=== PATIENT | female | born 1945 | race Caucasian/White ===

== ENCOUNTER 2022-03-11 07:16 | Emergency (ER) | payer MEDICARE, SELFPAY ==
[2022-03-11 07:20] VITALS: BP 150/99; PULSE 93; RESP 18; TEMP 36.5; O2SAT 95; BMI 27.4
--- NOTE | 2022-03-11 07:36 | ED_ITS ---
HPI - Fall General: Chief Complaint: Fall Stated Complaint: Hit her head Time Seen by Provider: 03/11/22 07:30 History of Present Illness: 76-year-old female presents following a fall. Patient reports that she has been having some trouble with her legs and being seen on outpatient. That she felt was having difficulty getting up that she had fell in the bathroom and crawled under hallway and was getting up when she slipped and fell and hit her head on a brick fireplace. She has a small laceration on her right posterior scalp. She did not lose consciousness. She has no other injuries from the fall. Associated symptoms-after fall: Denies abdominal pain, chest pain or headache(s) Review of Systems Const: Denies: fever(s) or chills Eyes: Denies: change in vision or blurry vision ENMT: Denies: throat pain Card: Denies: chest pain or palpitations Resp: Denies: dyspnea or productive cough GI: Denies: abdominal pain, nausea or vomiting : Denies: difficulty voiding or urinary frequency Musc: Reports: joint pain (Chronic hip pain) Skin/Breast: Reports: other (Please see HPI) Neuro: Reports: frequent falls; Denies: headache(s) or numbness in extremities Psych: Denies: anxiety or depression Physical Exam Const: COMMON NORMALS: no acute distress, patient oriented x3, no limitations and alert HENMT: COMMON NORMALS: hearing grossly normal bilaterally HEAD & SCALP: laceration Eye: COMMON NORMALS: EOMs intact bilaterally Neck/C-Spine: COMMON NORMALS: full ROM and supple Resp: COMMON NORMALS: normal respiratory effort, No retractions and No use of accessory muscles Cardio: COMMON NORMALS: regular rate and regular rhythm RATE: regular rate RHYTHM: regular rhythm Extremity: COMMON NORMALS: normal to inspection and capillary refill normal Neuro: COMMON NORMALS: patient oriented x3, CN's II-XII intact bilaterally, no focal motor deficits and no sensory deficits noted SENSORIUM/ORIENTATION: Yes alert Psych: COMMON NORMALS: mental status grossly normal, cooperative and normal affect Skin: NARRATIVE SKIN EXAM: Small half inch abrasion with puncture wound, nonsuturable, no active bleeding Course Vital Signs: Vital signs: Vital Signs Temperature 97.7 F 03/11/22 07:20 Pulse Rate 93 03/11/22 07:20 Respiratory Rate 18 03/11/22 07:20 Blood Pressure 150/99 03/11/22 07:20 Pulse Oximetry 95 03/11/22 07:20 Oxygen Delivery Me thod 03/11/22 07:20 MDM - Fall Medical Decision Making Patient with small nonsuturable puncture wound/abrasion posterior scalp. Negative head CT. Patient stable and discharged home. She should continue to follow-up outpatient for her chronic hip pain and frequent falls Lab Data Radiology Impressions Head CT 03/11/22 07:41 IMPRESSION: 1. No noncontrast CT evidence of acute posttraumatic intracranial abnormality. 2. Minimal right parietal scalp soft tissue swelling. Discharge Plan Discharge Patient Disposition: Home Clinical Impression: Abrasion of scalp, initial encounter, Fall Condition: Stable Discharge Orders: Discharge ED (Routine); Ordered 03/11/22 Ordered By: German Joshi Referrals: Fco Meyer MD [Primary Care Provider] - Discharge Diet: Usual diet Discharge Activity: Increase activity as tolerated Patient Instructions: Opioid Safety, Pain Management, Abrasion (ED), Puncture Wound (DC), Head Injury (ED) Activity Restrictions/Additional Instructions: Follow-up with your primary care provider as needed for continued Keep wound clean with warm soapy water Coding Level of Care Code ED Chainstitch Hemmer for Chg Fwd Exam Comprehensive
--- NOTE | 2022-03-11 07:41 | CTR_ITS ---
PROCEDURE INFORMATION: Exam: CT Head Without Contrast Exam date and time: 03/11/2022 8:07 AM Age: 76 years old Clinical indication: Injury or trauma; Fall; Blunt trauma (contusions or hematomas) and laceration; Without residual foreign body; Scalp; Injury date: Today; Additional info: Fall, head trauma TECHNIQUE: Imaging protocol: Computed tomography of the head without contrast. Radiation optimization: All CT scans at this facility use at least one of these dose optimization techniques: automated exposure control; mA and/or kV adjustment per patient size (includes targeted exams where dose is matched to clinical indication); or iterative reconstruction. COMPARISON: No relevant prior studies available. RADIATION DOSE METRICS: Total DLP (mGy-cm): 958.685 FINDINGS: Brain: There is brain parenchymal atrophy, related to the patient's age. Mild nonspecific white matter changes are seen. There are no intracranial masses, mass effect or midline shift. There is no cerebral edema. There is no subarachnoid hemorrhage. There are no intra-or extra-axial fluid collections, intraventricular or intraparenchymal hemorrhage. No definite areas of low attenuation or edge-white matter junction obscuration seen on the noncontrast CT to suggest a subacute stroke - although the underlying white matter changes limit assessment. Cerebral ventricles: The lateral, third and fourth ventricles appear unremarkable. Cavum septum pellucidum is seen. The suprasellar and basilar cisterns appear unremarkable. Paranasal sinuses: The visualized sinuses are unremarkable. Mastoid air cells: The visualized mastoids are unremarkable. Orbital cavities: The visualized orbits are unremarkable. Bones/joints: No definite acute osseous or skull abnormalities seen. Soft tissues: Minimal right parietal scalp soft tissue swelling. Notes: Some motion artifact is seen in the upper head region. If there is further clinical concern for intracranial pathology, MRI of the brain may be performed for further assessment. CT/CT head wo con* [id number] IMPRESSION: 1. No noncontrast CT evidence of acute posttraumatic intracranial abnormality. 2. Minimal right parietal scalp soft tissue swelling.
[2022-03-11 09:12] VITALS: BP 150/99; PULSE 93; RESP 18; TEMP 36.5
== END 2022-03-11 09:13 | disposition home or self-care (01) ==
PROVIDERS: Emergency Provider Student in an Organized Health Care Education/Training Program; PCP Family Medicine
DX: S00.01XA Abrasion of scalp, initial encounter (principal); W01.198A Fall on same level from slipping, tripping and stumbling with subsequent striking against other object, initial encounter
CPT/HCPCS: 70450; 99284

== ENCOUNTER 2022-03-20 12:15 | Outpatient (CLI) | payer MEDICARE, SELFPAY ==
--- NOTE | 2022-03-20 12:23 | XR_ITS ---
WS: [id number] Lumbar spine, 3 views, 03/20/2022 Clinical Data: back pain and ataxic gait Comparison: None. Findings: No compression fractures or subluxation is seen. There is degenerative disc narrowing at T12-L1, L1-L 2 and L5-S1. The transverse processes and SI joints are normal. There is anterior osteoarthritic spurring from the lower thoracic vertebral bodies through all the [place] mbar vertebral bodies. There is calcification of the wall of the abdominal aorta but no aneurysm. XR/XR lumbar spine 2-3V* [id number] Impression: Multilevel degenerative disc narrowing and osteoarthritic spurring.
--- NOTE | 2022-03-20 12:23 | XR_ITS ---
WS: [id number] Cervical spine, erect lateral, supine AP and odontoid views, 03/20/2022 Clinical Data: pain in neck Comparison: None. Findings: No compression fractures are seen. There is degenerative disc narrowing of C2-C3, C4-C5, C5 -C6 and C6-C7. There is anterior osteoarthritic spurring at C2, C4-C6.. There is no prevertebral soft tissue swelling. The odontoid is unremarkable. The soft tissues of the neck and the lung apices are normal. XR/XR cervical spine 3V* [id number] Impression: 1. Multilevel degenerative disc narrowing. 2. Multilevel anterior osteoarthritic spurring.
== END 2022-03-20 12:16 | disposition home or self-care (01) ==
LOC: RAD 12:18
PROVIDERS: PCP Family Medicine; Visit Provider Family Medicine
DX: M47.817 Spondylosis without myelopathy or radiculopathy, lumbosacral region (principal); M50.90 Cervical disc disorder, unspecified, unspecified cervical region; M51.36 Other intervertebral disc degeneration, lumbar region
CPT/HCPCS: 72040; 72100; 80053; 85025; 85651

== ENCOUNTER 2022-03-27 06:00 | Outpatient (RCR) | payer MEDICARE, SELFPAY | END 2022-04-10 16:09 | disposition home or self-care (01) | LOC: SPT 06:00 | PROVIDERS: PCP Family Medicine; Visit Provider Family Medicine | DX: M47.817 Spondylosis without myelopathy or radiculopathy, lumbosacral region (principal) | CPT/HCPCS: 97162 ==

== ENCOUNTER 2022-04-04 12:51 | Inpatient (IN) | payer MEDICARE, SELFPAY ==
[2022-04-04] VITALS (8 sets, daily range): BP systolic 123–151; BP diastolic 66–94; PULSE 75–106; RESP 16–20; TEMP 36.3–36.6; O2SAT 92–97; BMI 26.6
--- NOTE | 2022-04-04 13:07 | XRR_ITS ---
PROCEDURE INFORMATION: Exam: XR Chest Exam date and time: 04/04/2022 3:02 PM Age: 76 years old Clinical indication: Other: Weakness; Additional info: Weakness, increased rr TECHNIQUE: Imaging protocol: Radiologic exam of the chest. Views: 1 view. COMPARISON: CR XR cervical spine 3V* [id number] 03/20/2022 12:33 PM FINDINGS: Lungs: Unremarkable. No consolidation. Pleural spaces: Unremarkable. No pleural effusion. No pneumothorax. Heart/Mediastinum: Unremarkable. No cardiomegaly. Bones/joints: Unremarkable. XR/XR chest 1V portable [id number] IMPRESSION: No acute findings.
--- NOTE | 2022-04-04 13:10 | ED_ITS ---
HPI - Weakness General: Chief complaint: Weakness Stated complaint: Weakness Time Seen by Provider: 04/04/22 12:55 Source: patient and EMS Mode of arrival: EMS Limitations: no limitations History of Present Illness: 76-year-old female presents by EMS after family came to check on her and she could not get out of her chair to answer the door. EMS reports that patient seemed to be having some drifting or delirium during conversation. She reports that she was too weak to get out of her chair and therefore had to urinate on herself. She could not get up to answer the door. EMS reports family on scene was worried she might be starting to have some memory decline. Patient does not complain of any pain. She does not have a good explanation for her weakness. Evidently she normally ambulates on her own. Associated symptoms: Reports confusion; Denies chest pain, chills, dysuria, fever(s), headache(s), nausea, syncope or vomiting Review of Systems General: Reports: 10 or more systems reviewed and unremarkable except in HPI and below Const: Denies: fever(s), chills or body aches ENMT: Denies: throat pain Card: Denies: chest pain, edema or syncope Resp: Denies: dyspnea or productive cough GI: Denies: abdominal pain, nausea, vomiting or diarrhea : Denies: flank pain or dysuria Musc: Denies: neck pain, back pain, extremity pain or extremity swelling Skin/Breast: Denies: rash or erythema Neuro: Reports: weakness in extremities, difficulty walking and confusion; Denies: headache(s), numbness in extremities, lack of coordination, dizziness or vertigo [facility] ED PFSH: Social History Smoking and tobacco status: never smoked Physical Exam Narrative: EXAM NARRATIVE: Smell of urine. She is wearing a depends which is wet. Her hair is unkempt. She mostly is able to answer my questions normally but occasionally gets lost in what she is saying or has loose associations. She has generalized weakness and is not able to lift her legs off of the bed while extended. She has to pull up her legs by bending her knees and using her hands to assist her legs. There are no focal abnormalities in the sensory or motor examinations. She is deconditioned. Her respiratory rate is increased but she is not in respiratory distress and her lung sounds are clear. Const: COMMON NORMALS: alert and well nourished GENERAL APPEARANCE: cooperative and well developed ORIENTATION/CONSCIOUSNESS: Yes awake HENMT: COMMON NORMALS: normocephalic, atraumatic, external ears normal and Normal external nose present HEAD & SCALP: normal to inspection, normocephalic and atraumatic FACE & SINUS: face symmetric NOSE: Normal external nose present EXTERNAL EAR: Yes external ears normal Eye: COMMON NORMALS: EOMs intact bilaterally and conjunctivae normal GENERAL EYE: appearance normal, both eyes and all related structures CONJUNCTIVA: Yes conjunctivae normal Neck/C-Spine: COMMON NORMALS: no JVD GENERAL: Yes normal visual inspection and Yes trachea midline Resp: COMMON NORMALS: normal respiratory effort, No use of accessory muscles and clear to auscultation bilaterally EFFORT & INSPECTION: Yes able to speak in complete sentences and Yes symmetric chest movement AUSCULTATION: clear to auscultation bilaterally Cardio: COMMON NORMALS: no JVD and regular rhythm RHYTHM: regular rhythm PERIPHERAL PULSES: radial pulses present GI: COMMON NORMALS: Soft to palpation INSPECTION: Yes normal to inspection PALPATION: Yes Soft to palpation, No Tenderness to palpation present (GI) and No Guarding due to palpation present (GI) Extremity: COMMON NORMALS: normal to inspection GENERAL: Yes normal exam except as noted Neuro: COMMON NORMALS: moves all extremities, no focal motor deficits and no sensory deficits noted SENSORIUM/ORIENTATION: Yes alert Psych: COMMON NORMALS: Normal thought process present, cooperative, normal affect and speech normal SPEECH: Yes normal speech THOUGHT PROCESS: Normal thought process present Skin: COMMON NORMALS: no jaundice Course Vital Signs: Vital signs: Vital Signs Temperature 97.8 F 04/04/22 12:53 Pulse Rate 106 H 04/04/22 12:53 Respiratory Rate 18 04/04/22 12:53 Blood Pressure 138/88 04/04/22 14:23 Pulse Oximetry 94 04/04/22 12:53 Oxygen Delivery Me thod 04/04/22 12:53 Oxygen Flow Rate 3 04/04/22 12:53 MDM - Weakness Medical Decision Making Differential diagnosis would include deconditioning, urinary tract infection, other infectious etiology, dehydration, metabolic abnormality such as glycemic, sodium, renal, hepatic, etc. Patient does not endorse using any medications or drugs or alcohol. She denies any trauma and there is no sign of trauma externally. I do not think this is consistent with stroke. Patient is found to have a urinary tract infection. White blood cell count is mildly elevated. Some mild electrolyte abnormalities. Patient is noted to be dehydrated. She was given 2 L of fluid. Rocephin was started after blood cultu res. Chest x-ray does not show any acute findings. The patient's EKG showed a sinus tachycardia at a rate of 103 bpm with a borderline first-degree AV block, probable left axis deviation and mild LVH, poor R wave progression through the precordium, and lots of baseline wandering and interference that limits some interpretation. Dr Luciano to admit. Lab Data 04/04/22 13:36 04/04/22 13:36 Radiology Impressions Chest X-Ray 04/04/22 13:07 IMPRESSION: No acute findings. Laboratory Results WBC 10.5 10^3/uL (4.0-10.0) H 04/04/22 13:36 RBC 4.09 10^6/uL (4.1-5.3) L 04/04/22 13:36 Hgb 12.7 g/dL (11.5-15.3) 04/04/22 13:36 Hct 37.0 % (37.0-47.0) 04/04/22 13:36 MCV 90.5 fl (81-99) 04/04/22 13:36 MCH 31.1 pg (28.0-34.0) 04/04/22 13:36 MCHC 34.3 g/dL (30.0-36.0) 04/04/22 13:36 RDW 14.7 % (12.1-15.1) 04/04/22 13:36 Plt Count 129 10^3/cmm (130-400) L 04/04/22 13:36 MPV 9.8 fL (7.4-10.4) 04/04/22 13:36 Neut % (Auto) 86.9 % 04/04/22 13:36 Lymph % (Auto) 5.1 % 04/04/22 13:36 [place] % (Auto) 6.7 % 04/04/22 13:36 Eos % (Auto) 0.1 % 04/04/22 13:36 Baso % (Auto) 0.3 % 04/04/22 13:36 Neut # (Auto) 9.16 10^3/uL (1.8-7.7) H 04/04/22 13:36 Lymph # (Auto) 0.5 10^3/uL (0.8-4.8) L 04/04/22 13:36 [place] # (Auto) 0.7 10^3/uL (0.2-0.9) 04/04/22 13:36 Eos # (Auto) 0.0 10^3/uL (0.0-0.8) 04/04/22 13:36 Baso # (Auto) 0.0 10^3/uL (0.0-0.1) 04/04/22 13:36 Nucleated RBC % (auto) 0 % 04/04/22 13:36 Nucleated RBCs # 0.0 /100WBC 04/04/22 13:36 Sodium 132 mmol/L (136-145) L 04/04/22 13:36 Potassium 4.0 mmol/L (3.5-5.1) 04/04/22 13:36 Chloride 94 mmol/L (98-107) L 04/04/22 13:36 Carbon Dioxide 25 mmol/L (22-29) 04/04/22 13:36 Anion Gap 17.0 (5-19) 04/04/22 13:36 BUN 42 mg/dL (8-23) H 04/04/22 13:36 Creatinine 0.6 mg/dL (0.5-0.9) 04/04/22 13:36 GFR Calculation Not Reportable 04/04/22 13:36 Glucose 109 mg/dL (65-115) 04/04/22 13:36 Calculated Osmolality 285 mOsm/kg (285-295) 04/04/22 13:36 Calcium 11.1 mg/dL (8.5-10.5) H 04/04/22 13:36 Magnesium 1.7 mg/dL (1.7-2.3) 04/04/22 13:36 Total Bilirubin 1.0 mg/dL (0.15-1.2) 04/04/22 13:36 AST 44 U/L (0-32) H 04/04/22 13:36 ALT 12 U/L (0-33) 04/04/22 13:36 Alkaline Phosphatase 149 U/L (35-105) H 04/04/22 13:36 Total Protein 5.7 g/dL (6.6-8.7) L 04/04/22 13:36 Albumin 3.2 g/dL (3.5-5.2) L 04/04/22 13:36 Globulin 2.5 g/dL (1.3-4.6) 04/04/22 13:36 TSH 7.05 uIU/mL (0.27-4.20) H 04/04/22 13:36 Urine Color Yellow (Yellow) 04/04/22 13:55 Urine Appearance Cloudy (CLEAR) A 04/04/22 13:55 Urine pH 5 (5-7) 04/04/22 13:55 Ur Specific [place] 1.025 (1.005-1.030) 04/04/22 13:55 Urine Protein 1+ (Negative) H 04/04/22 13:55 Urine Glucose (UA) Norm (Normal) 04/04/22 13:55 Urine Ketones 1+ (Negative) H 04/04/22 13:55 Urine Blood Neg (Negative) 04/04/22 13:55 Urine Nitrate Negative (Negative) 04/04/22 13:55 Urine Bilirubin 1+ (Negative) H 04/04/22 13:55 Urine Urobilinogen 4 mg/dL (Negative) H 04/04/22 13:55 Ur Leukocyte Esterase 2+ (Negative) H 04/04/22 13:55 Urine RBC 0-4 /hpf (0-2) H 04/04/22 13:55 Urine WBC >100 /hpf (0-5) H 04/04/22 13:55 Ur Squamous Epith Cells 0-4 /hpf (0-5) H 04/04/22 13:55 Amorphous Sediment Not Reportable 04/04/22 13:55 Urine Bacteria 4+ /hpf (NONE) H 04/04/22 13:55 Urine Mucus 2+ /hpf 04/04/22 13:55 Discharge Plan Discharge Condition: Stable Prescriptions: No Action Osteo Bi-Flex 250-200 mg Tablet 1 tab PO DAILY Rx Instructions: give after food/meal Referrals: Fco Meyer MD [Primary Care Provider] - Coding Level of Care Code ED It Infrastructure Project Manager for Chg Fwd Exam Comprehensive
--- NOTE | 2022-04-04 13:18 | ECG_ITS ---
[facility] Test Date: 2022-04-04 Pat Name: Renetta Lazaro Department: Room: Gender: Female Portable Trackman: : 1945 Requested By: Ryan Bianchi Order Number: [id number] Zaida MD: Haris Vivas M.D. Measurements Intervals [place] Rate: 103 P: 117 FL: 228 QRS: -18 QRSD: 101 T: 95 QT: 262 QTc: 344 Interpretive Statements SINUS TACHYCARDIA WITH FIRST DEGREE AV BLOCK WITH OCCASIONAL SUPRAVENTRICULAR PREMATURE COMPLEXES LOW QRS VOLTAGE IN PRECORDIAL LEADS [QRS DEFLECTION < 1.0 mV IN CHEST LEADS] POSSIBLE ANTERIOR MYOCARDIAL INFARCTION , PROBABLY OLD [30 ms Q WAVE IN V3/V4, OR R < 0.2 mV IN V4] MODERATE T-WAVE ABNORMALITY, CONSIDER LATERAL ISCHEMIA [-0.1+ mV T-WAVE IN I/aVL/V5/V6] No previous ECG available for comparison Electronically Signed On 04-04-2022 20:36:39 LAND LEVELER by Haris Vivas M.D. [id number]
[2022-04-04] MEDS: sodium chloride 0.9% 1,000 ML 999 ML IV (13:38)
[2022-04-04 13:42] LABS: Basophils % 0.3 %; Eosinophils % 0.1 %; Hemoglobin 12.7 g/dL (11.5-15.3); Lymphocytes # 0.5 10^3/uL (0.8-4.8); Lymphocytes % 5.1 %; Mean Corpuscular HGB Conc 34.3 g/dL (30.0-36.0); Mean Corpuscular Hemoglobin 31.1 pg (28.0-34.0); Mean Corpuscular Volume 90.5 fl (81-99); Mean Platelet Volume 9.8 fL (7.4-10.4); Monocytes # 0.7 10^3/uL (0.2-0.9); Monocytes % 6.7 %; Neutrophils # 9.16 10^3/uL (1.8-7.7); Neutrophils % 86.9 %; Nucleated Red Blood Cells % 0 %; Platelet Count 129 10^3/cmm (130-400); Red Blood Count 4.09 10^6/uL (4.1-5.3); Red Cell Distribution Width 14.7 % (12.1-15.1); White Blood Count 10.5 10^3/uL (4.0-10.0)
[2022-04-04 14:09] LABS: Alanine Aminotransferase 12 U/L (0-33); Albumin Level 3.2 g/dL (3.5-5.2); Alkaline Phosphatase 149 U/L (35-105); Aspartate Amino Transferase 44 U/L (0-32); Blood Urea Nitrogen 42 mg/dL (8-23); Calcium 11.1 mg/dL (8.5-10.5); Carbon Dioxide 25 mmol/L (22-29); Chloride 94 mmol/L (98-107); Globulin 2.5 g/dL (1.3-4.6); Glucose 109 mg/dL (65-115); Magnesium 1.7 mg/dL (1.7-2.3); Osmolality Calculated 285 mOsm/kg (285-295); Sodium 132 mmol/L (136-145); Thyroid Stimulating Hormone 7.05 uIU/mL (0.27-4.20); Total Protein 5.7 g/dL (6.6-8.7)
[2022-04-04 14:23] LABS: Add Urine Microscopic? YES; Bilirubin Urine 1+ (Negative); Blood Urine Neg (Negative); Glucose Urine UA Norm (Normal); Ketones Urine 1+ (Negative); Leukocyte Esterase Urine 2+ (Negative); Nitrate Urine Negative (Negative); Protein Urine 1+ (Negative); Specific Gravity, Urine 1.025 (1.005-1.030); Urine Appearance Cloudy (CLEAR); Urine Color Yellow (Yellow); Urobilinogen Urine 4 mg/dL (Negative); pH Urine 5 (5-7)
[2022-04-04 14:24] LABS: Add Urine Culture? Yes; Bacteria Urine 4+ /hpf; Mucus Urine 2+ /hpf; RBC Urine 0-4 /hpf (0-2); Squamous Epithelial Cell Urine 0-4 /hpf (0-5); WBC Urine >100 /hpf (0-5)
[2022-04-04] MEDS: cefTRIAXone 2,000 MG in sodium chloride 0.9% (plus) 50 ML 100 MG IV (14:56)
--- NOTE | 2022-04-04 15:37 | CTR_ITS ---
PROCEDURE INFORMATION: Exam: CT Abdomen And Pelvis Without Contrast Exam date and time: 04/04/2022 4:22 PM Age: 76 years old Clinical indication: Abdominal pain; Generalized; Additional info: Pyelo? Renal stone TECHNIQUE: Imaging protocol: Computed tomography of the abdomen and pelvis without contrast. Radiation optimization: All CT scans at this facility use at least one of these dose optimization techniques: automated exposure control; mA and/or kV adjustment per patient size (includes targeted exams where dose is matched to clinical indication); or iterative reconstruction. COMPARISON: CR XR chest 1V portable [id number] 04/04/2022 3:02 PM RADIATION DOSE METRICS: Total DLP (mGy-cm): 693.61 FINDINGS: Right lower lobe pleural effusion and pleural thickening Liver: There is hepatomegaly the liver span is 19 cm. There are multiple areas of decreased density diffusely throughout the right hepatic lobe corresponding to hematogenous metastatic disease. . Gallbladder and bile ducts: Normal. No calcified stones. No ductal dilation. Pancreas: Atrophic appearing No ductal dilation. Spleen: Normal. No splenomegaly. Adrenal glands: Normal. No mass. Kidneys and ureters: Normal. No hydronephrosis. Negative for urinary tract stones Stomach and bowel: Unremarkable. No obstruction. No mucosal thickening. Appendix: No evidence of appendicitis. Intraperitoneal space: There is moderate diffuse abdominal and pelvic peritoneal ascites fluid is seen in the perihepatic, perisplenic, bilateral pericolic gutters, and in the pelvis. Vasculature: The aorta is ectatic calcified without evidence of aneurysm. Lymph nodes: Unremarkable. No enlarged lymph nodes. Urinary bladder: Unremarkable as visualized. Reproductive: A normal uterus is not visible corresponding to hysterectomy. Bones/joints: A circumscribed mass is present in the posterior aspect of the T9 vertebral body on the left side. This finding measures 25.9 mm x 25.8 mm. There is a small mass seen in the left side of the T10 vertebral body measuring 9 mm The left sacral bone and the S1 vertebral body on the left side displays a large decreased density lobulated mass measuring 50 mm x 53 mm. 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 This lesion is amenable to percutaneous biopsy The lumbar spine shows osteoarthritis. Soft tissues: Unremarkable. CT/CT abdomen pelvis wo con [id number] IMPRESSION: 1. Hepatomegaly and hepatic metastatic disease. 2. 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 3. Tumor mass is seen in the T9 and T10 vertebral bodies 4. Diffuse abdominal and pelvic peritoneal ascites. 5. Negative for urinary tract stones or urinary outflow tract obstruction. 6.Status post hysterectomy. 7. Right lower lobe small pleural effusion
--- NOTE | 2022-04-04 15:54 | CTR_ITS ---
PROCEDURE INFORMATION: Exam: CT Head Without Contrast Exam date and time: 04/04/2022 4:20 PM Age: 76 years old Clinical indication: Injury or trauma; Fall; Blunt trauma (contusions or hematomas); Additional info: Fall, unsteady TECHNIQUE: Imaging protocol: Computed tomography of the head without contrast. Radiation optimization: All CT scans at this facility use at least one of these dose optimization techniques: automated exposure control; mA and/or kV adjustment per patient size (includes targeted exams where dose is matched to clinical indication); or iterative reconstruction. COMPARISON: CT head wo con* [id number] 03/11/2022 8:07 AM RADIATION DOSE METRICS: Total DLP (mGy-cm): 929.2 FINDINGS: Brain: No hemorrhage. No edema. Moderate diffuse cerebral atrophy. No significant white matter disease. No mass effect. Cerebral ventricles: Normal variant intact cavum septum pellucidum and et vergae. No ventriculomegaly. Paranasal sinuses: Visualized sinuses are unremarkable. No fluid levels. Mastoid air cells: Visualized mastoid air cells are well aerated. Bones/joints: Unremarkable. No acute fracture. Soft tissues: Unremarkable. CT/CT head wo con* [id number] IMPRESSION: No acute intracranial abnormality.
--- NOTE | 2022-04-04 15:56 | PM.HP ---
Providers/Chief Complaint Primary Care Provider: Fco Meyer MD Chief Complaint: Weakness History of Present Illness Renetta Lazaro is a 76 year old female who presents to [facility] due to generalized weakness, fatigue, malaise, confusion, dysuria. Patient presents from EMS with family as the did not hear from her the last few days, when he checked up on her, they could not get out of the chair, tapped in the door, she was increasingly confused. She is normally independent, self ambulatory. Currently she is alert to person, to place, to time, can follow commands. She denies any nausea, no vomiting, no chest pain, shortness of breath. No abdominal pain. No flank pain. She does report a history of kidney stones. She does report that she fell on the , she came here they did scans and they told him that she was all right but she remains unsteady on her feet, she states saw Dr. Meyer for this Review of Systems Const: Reports: fatigue and malaise; Denies: fever(s) or chills Card: Denies: chest pain Resp: Denies: dyspnea GI: Denies: abdominal pain : Denies: difficulty voiding Medications/Allergies Home Medications Medication Instructions Recorded Confirmed Last Taken Type glucosamine-chondroitin 250 mg-200 1 tab PO DAILY 04/04/22 04/04/22 04/03/22 History mg tablet (Osteo Bi-Flex) Allergies Allergy/AdvReac Type Severity Reaction Status Date / Time Penicillins Allergy Intermediate ADR-Dizzine Verified 03/20/22 08:47 ss PFSH Acute PFSH: Medical History (Updated 04/04/22 @ 16:01 by Matthew Luciano MD) Cervical radiculopathy Family History (Updated 04/04/22 @ 15:59 by Matthew Luciano MD) Brother Leukemia CAD (coronary artery disease) Social History Smoking and tobacco status: never smoked Vitals/I&O/Wt Last Vital Signs Temp 97.8 F 04/04/22 12:53 Pulse 106 H 04/04/22 12:53 Resp 18 04/04/22 12:53 BP 138/88 04/04/22 14:23 Pulse Ox 94 04/04/22 12:53 O2 Del Method 04/04/22 12:53 O2 Flow Rate 3 04/04/22 12:53 Weight last 48 hrs Weight 74.843 kg Physical Exam Const: COMMON NORMALS: no acute distress and patient oriented x3 ORIENTATION/CONSCIOUSNESS: Yes awake, Yes oriented to person and Yes oriented to place; not oriented to time HENMT: COMMON NORMALS: normocephalic HEAD & SCALP: normocephalic Eye: COMMON NORMALS: Equal, round and reactive pupils present Resp: COMMON NORMALS: normal respiratory effort, No retractions, No use of accessory muscles and clear to auscultation bilaterally AUSCULTATION: clear to auscultation bilaterally Cardio: COMMON NORMALS: no JVD, regular rate, regular rhythm, S1 normal heart sound present and S2 normal heart sound present RATE: regular rate RHYTHM: regular rhythm HEART SOUNDS: S1 normal heart sound present and S2 normal heart sound present GI: COMMON NORMALS: Normal to inspection, nondistended, normoactive bowel sounds present and Soft to palpation PALPATION: Yes Soft to palpation and Yes No hepatosplenomegaly present Extremity: COMMON NORMALS: capillary refill normal, no clubbing, cyanosis or edema, no calf tenderness and no pedal edema Neuro: COMMON NORMALS: patient oriented x3 Psych: COMMON NORMALS: mental status grossly normal Data 04/04/22 13:36 04/04/22 13:36 Micro: Microbiology 04/04/22 15:17 Blood Culture - Preliminary Blood SPECIMEN COLLECTED 04/04/22 15:15 Blood Culture - Preliminary Blood SPECIMEN COLLECTED A&P Assessment and plan (1) Bacterial UTI: (2) Infectious encephalopathy: (3) Dehydration: (4) Generalized weakness: Plan UTI -follow urine cultures, blood cultures -Will order CT abdomen pelvis to evaluate for obstructive uropathy -Continue Rocephin Generalized weakness -CT head -TSH high, will check T3 and T4 On 3 L, does not use oxygen-monitor PT OT Full code Attestations Medical Necessity Statement*: Patient requires hospitalization, inpatient with 2 midnights, for generalized weakness, UTI, Coding Level of Care Code Acute Master Police Detective for Chg Fwd Diagnoses Bacterial UTI N39.0; A49.9 Infectious encephalopathy G93.49; B99.9 Dehydration E86.0 Generalized weakness R53.1
[2022-04-04 16:19] LABS: C Reactive Protein 85.2 mg/L (0.0-4.9)
[2022-04-04 16:24] LABS: Procalcitonin 0.61 ng/mL (0-0.5)
[2022-04-04] MEDS: enoxaparin 40 mg/0.4 mL Syringe SUBCUT (17:18)
[2022-04-04] MEDS: pantoprazole 40 mg SDV IVP (17:18)
[2022-04-04 17:24] LABS: Lactic Sepsis W/Reflex 2.1 mmol/L (0.5-2.2)
[2022-04-04 17:27] LABS: Troponin(5th) Baseline 39 ng/L (0-10)
[2022-04-04 17:28] LABS: Chol HDL Ratio 2.53 mg/dL (0.0-4.40); Cholesterol 129 mg/dL (0-200); HDL Cholesterol 51 mg/dL (60-100); LDL Cholesterol Calculated 56 mg/dL (50-129); Triglycerides 108 mg/dL (0-150)
[2022-04-04] MEDS: lactated ringers 1,000 ML 100 ML IV ×2 (17:32→20:58)
[2022-04-04 18:35] LABS: Troponin 5 2HR 42.54 ng/L (0-10)
[2022-04-04 18:36] LABS: Reflex Lactate Order REFLEX LACTIC ORDERD
[2022-04-04 18:37] LABS: Troponin 5 2HR Delta 3.54 ABS# (0-10)
[2022-04-04 19:36] LABS: Estmated Average Glucose 88; Hemoglobin A1C 4.7 % (4.0-6.0)
[2022-04-04 19:45] LABS: Free T4 Free Thyroxine 1.12 ng/dL (0.82-1.77); T3 Free 1.7 PG/ML (2.0-4.4)
[2022-04-04 20:31] LABS: Lactic Acid level (Lactate) 1.8 mmol/L (0.5-2.2)
--- NOTE | 2022-04-04 20:51 | PC.NURSE ---
Dr. Bianchi notified of fluid bolus order for 2:45 pm does not appear to have been given on jul. Patient's heart rate currently 98. Physician states not to give if patient is taking in plenty of water PO. Patient encouraged to drink PO water.
--- NOTE | 2022-04-04 21:53 | ECG_ITS ---
[facility] Test Date: 2022-04-05 Pat Name: Renetta Lazaro Department: Room: 267 Gender: Female [employer] Tele[employer] Technician: : [id number] Requested By: Matthew Luciano Order Number: [id number] Zaida MD: Haris Vivas M.D. Measurements Intervals [place] Rate: 91 P: 62 VA: 207 QRS: -31 QRSD: 100 T: 29 QT: 327 QTc: 404 Interpretive Statements SINUS RHYTHM WITH OCCASIONAL SUPRAVENTRICULAR PREMATURE COMPLEXES LEFT AXIS DEVIATION [QRS AXIS < -30] LOW QRS VOLTAGE IN PRECORDIAL LEADS [QRS DEFLECTION < 1.0 mV IN CHEST LEADS] POSSIBLE ANTERIOR MYOCARDIAL INFARCTION , PROBABLY OLD [30 ms Q WAVE IN V3/V4, OR R < 0.2 mV IN V4] Compared to ECG 04/04/2022 13:18:44 Left-axis deviation now present Sinus tachycardia no longer present First degree AV block no longer present T-wave abnormality no longer present Possible ischemia no longer present Myocardial infarct finding still present Electronically Signed On 04-06-2022 12:44:07 QUALITY CONTROL EXPERT by Haris Vivas M.D. [id number]
[2022-04-05] VITALS (7 sets, daily range): BP systolic 101–131; BP diastolic 77–90; PULSE 91–102; RESP 16–20; TEMP 36.5–36.8; O2SAT 91–99
[2022-04-05 00:26] LABS: Troponin 5 6HR 41.67 ng/L (0-10)
[2022-04-05 00:38] LABS: Troponin 5 6HR Delta 2.67 ng/L (0-12)
[2022-04-05 05:23] LABS: Basophils % 0.2 %; Eosinophils # 0.1 10^3/uL (0.0-0.8); Eosinophils % 0.4 %; Hematocrit 34.9 % (37.0-47.0); Hemoglobin 11.6 g/dL (11.5-15.3); Lymphocytes # 0.8 10^3/uL (0.8-4.8); Lymphocytes % 6.2 %; Mean Corpuscular HGB Conc 33.2 g/dL (30.0-36.0); Mean Corpuscular Hemoglobin 30.6 pg (28.0-34.0); Mean Corpuscular Volume 92.1 fl (81-99); Monocytes # 0.8 10^3/uL (0.2-0.9); Monocytes % 6.7 %; Neutrophils # 10.47 10^3/uL (1.8-7.7); Neutrophils % 85.9 %; Nucleated Red Blood Cells % 0 %; Platelet Count 144 10^3/cmm (130-400); Red Blood Count 3.79 10^6/uL (4.1-5.3); Red Cell Distribution Width 14.9 % (12.1-15.1); White Blood Count 12.2 10^3/uL (4.0-10.0)
[2022-04-05 05:45] LABS: Blood Urea Nitrogen 39 mg/dL (8-23); Calcium 10.4 mg/dL (8.5-10.5); Carbon Dioxide 26 mmol/L (22-29); Chloride 94 mmol/L (98-107); Glucose 97 mg/dL (65-115); Magnesium 1.6 mg/dL (1.7-2.3); Osmolality Calculated 279 mOsm/kg (285-295); Phosphorus 2.6 mg/dL (2.5-4.5); Sodium 130 mmol/L (136-145)
--- NOTE | 2022-04-05 08:32 | CT_ITS ---
WS: [id number] CT CHEST ANGIOGRAPHY WITH REFORMATS HISTORY: sob TECHNIQUE: Contiguous axial images are obtained through the chest during arterial injection of intrav enous contrast. Images are reconstructed to evaluate the pulmonary arteries. MIP imaging also reviewe d. All CT scans at [facility] use at least one of these dose optimization techniques: automat ed exposure control; mA and/or kV adjustment per patient size (includes targeted exams where dose is matched to clinical indication); or iterative reconstruction. CONTRAST: Omnipaque 350; 82 mL IV. DLP: 224.26 mGy.cm COMPARISON: None available. Good opacification of the pulmonary arteries. No filling defects are identified. Mildly ectatic dilat ed central pulmonary artery. The RIGHT pulmonary artery is greater in size than the LEFT. Atheroscler otic changes within the thoracic aorta. Aorta is ectatic but not aneurysmal. Mildly enlarged heart. N o mediastinal or hilar lymph nodes. There are numerous scattered very small irregular pulmonary nodul es. These nodules are less than a centimeter with the largest measuring 6 to 7 mm. Partial atelectasi s inferior RIGHT middle lobe and RIGHT lower lobe. There is a small RIGHT pleural effusion. Patient has known metastatic disease within the liver. Numerous lesions are identified but poorly vis ualized due to phase of enhancement. There is a small amount of ascites in the upper abdomen. Extensive metastatic disease involving the sternum. There is extensive lytic change throughout the th oracic spine. T5: Lytic metastatic disease posterior LEFT lateral vertebral body with extension into the pedicle an d spinous process. Soft tissue encroaches upon the LEFT lateral thecal sac. There is involvement of t he LEFT T5-6 and T6-7 foramen. T9: Mild pathological fracture with anterior wedging. Lytic changes with soft tissue posterior LEFT v ertebral body extending into the posterior elements and the foramina. There does appear to be contact on the thoracic cord. LEFT posterior lateral 10th rib metastatic lesion. RIGHT lateral eighth rib abnormality may be a heal ed fracture or metastatic site. CT/CT angio chest PE protcl [id number] IMPRESSION: 1. No pulmonary embolism. 2. Ectatic thoracic aorta. 3. There are a few scattered subcentimeter pulmonary nodules which are probabl y metastatic sites or postinflammatory. 4. Small RIGHT pleural effusion with minimal bibasilar atelectasis. 5. Metastatic lytic lesions throughout the thoracic spine and ribs. Most signi ficant involvement of T5 and T9 with encroachment into the thoracic cord and fo ramina. No obvious cord compression at this time. 6. Extensive metastatic disease throughout the sternum. 7. Known hepatic metastatic disease. 8. Ascites. Notified Matthew Luciano MD at 04/05/2022 9:40 AM.
[2022-04-05] MEDS: iohexol 350 mg/mL 500 mL Btl (per mL) IV (09:15)
[2022-04-05] MEDS: levothyroxine 25 mcg Tablet PO (09:34)
--- NOTE | 2022-04-05 10:17 | PC.CHAP ---
Pastoral Care Encounter/Spiritual Assessment Type of Contact [] Declined prison warden visit [] Patient/Family/Request visit [] Outpatient visit [] Follow-up visit [] Physician referral [] Code/Alert [x] Routine visit [] Staff referral [] Actively dying [x] Patient sleeping [] Family support [] [] Out of room [] Palliative care [] [] Receiving care in room [] Pre-surgical visit [] Trauma [] Long length of stay [] ICU visit [] Other: Relational/Emotional Strength [] Patient feels connected with others/family/visitors/staff [] Distress [] Loneliness/isolation [] Abandonment Spirituality of Patient [] Person of Ratna [] Attends Latter-Day of their Ratna [] Believes in Prayer [] Reads Bible or Scientology materials [] There are Spiritual issues to be addressed Party Director Interventions [] Prayer [] Active listening [] Non-anxious presence [] Spiritual/emotional support [] Crisis/trauma care [] Spiritual counseling [] Bereavement support [] Provided bereavement packet [] Provided Bible/devotional materials [] Provided toy/stuffed animal, coloring book to patient or family member [] Provided Communion [] Anointing/[place] [] Salvation [] Completed spiritual assessment [] Other: Impact on Illness or Injury [] Angry [] Fearful [] Anxious [] Often cries [] Exhaustion [] Unable to work [] Unable to attend christianity [] Unable to walk/stand [] Unable to read [] Unable to drive [] Unable to eat/drink [] Unable to sleep [] Unable to be with family [] Patient intubated [] Other: Summary Time spent with patient
[2022-04-05 12:37] LABS: CA 125 229.6 U/mL (0-35); Cancer Antigen 19 9 18.05 U/mL (0-35)
--- NOTE | 2022-04-05 12:55 | P.PN_ITS ---
Subjective Subjective: patient was seen this morning, she is still on 2L, complains of generalizaed weakness and fatigue, she doesnot want to go to a senior living or her children house, she wants to go home, she has home health care, and she has a neighbor that checks up on her. -discussed patient ct scan findings, findings of multiple liver metastatic lesion, bone lesions, highly suspicious for malignant process -discussed finding in details, but not sure she understood the significance of the information, or the dept, i offered to reach out to her family but she said she is having issues with them making her go to a senior living or living with them so she will tell them herself Vitals/I&O/Wt Last Vital Signs Temp 98.2 F 04/05/22 11:53 Pulse 96 04/05/22 11:53 Resp 18 04/05/22 11:53 BP 101/77 04/05/22 11:53 Pulse Ox 96 04/05/22 11:53 O2 Del Method 04/05/22 11:53 O2 Flow Rate 3 04/05/22 03:28 04/04/22 04/05/22 04/05/22 22:59 06:59 14:59 Intake Total 583.333 / 309.401 3468 / 1000 Balance 583.333 / 738.165 5720 / 1000 Weight last 48 hrs Weight 74.843 kg Physical Exam Const: COMMON NORMALS: no acute distress and patient oriented x3 Resp: COMMON NORMALS: normal respiratory effort, No retractions, No use of accessory muscles and clear to auscultation bilaterally AUSCULTATION: clear t o auscultation bilaterally Cardio: COMMON NORMALS: regular rate, regular rhythm, S1 normal heart sound present and S2 normal heart sound present RATE: regular rate RHYTHM: regular rhythm HEART SOUNDS: S1 normal heart sound present and S2 normal heart sound present GI: COMMON NORMALS: Normal to inspection, nondistended, normoactive bowel sounds present and non-tender Extremity: COMMON NORMALS: no pedal edema Neuro: COMMON NORMALS: patient oriented x3 Data 04/05/22 05:07 04/05/22 05:07 Micro: Microbiology 04/04/22 13:55 Urine Culture - Preliminary Urine,Clean Catch Gram Negative Rods 04/04/22 15:17 Blood Culture - Preliminary Blood SPECIMEN COLLECTED 04/04/22 15:15 Blood Culture - Preliminary Blood SPECIMEN COLLECTED A&P Assessment and plan (1) Metastatic cancer to bone: (2) 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 There is hepatomegaly the liver span is 19 cm.? There are multiple areas of decreased density diffusely throughout the right hepatic lobe corresponding to hematogenous metastatic disease. .? Gallbladder and bile ducts: Normal. No calcified stones. No ductal dilation. Pancreas:? Atrophic appearing No ductal dilation. Spleen: Normal. No splenomegaly. Adrenal glands: Normal. No mass. Kidneys and ureters: Normal. No hydronephrosis.? Negative for urinary tract stones Stomach and bowel: Unremarkable. No obstruction. No mucosal thickening. Appendix: No evidence of appendicitis. Intraperitoneal space:? There is moderate diffuse abdominal and pelvic peritoneal ascites fluid is seen in the perihepatic, perisplenic, bilateral pericolic gutters, and in the pelvis. Vasculature:? The aorta is ectatic calcified without evidence of aneurysm. Lymph nodes: Unremarkable. No enlarged lymph nodes. Urinary bladder: Unremarkable as visualized. Reproductive:? A normal uterus is not visible corresponding to hysterectomy. Bones/joints:? A circumscribed mass is present in the posterior aspect of the T9 vertebral body on the left side. This finding measures 25.9 mm x 25.8 mm.? There is a small mass seen in the left side of the T10 vertebral body measuring 9 mm The left sacral bone and the S1 vertebral body on the left side displays a large decreased density lobulated mass measuring 50 mm x 53 mm. 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 This lesion is amenable to percutaneous biopsy The lumbar spine shows osteoarthritis. Soft tissues: Unremarkable. CT/CT abdomen pelvis wo con [id number] IMPRESSION: 1. Hepatomegaly and hepatic metastatic disease. 2. 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 3. Tumor mass is seen in the T9 and T10 vertebral bodies 4. Diffuse abdominal and pelvic peritoneal ascites. 5. Negative for urinary tract stones or urinary outflow tract obstruction. 6.Status post hysterectomy. 7. Right lower lobe small pleural effusion 1.? No pulmonary embolism. 2.? Ectatic thoracic aorta. 3.? There are a few scattered subcentimeter pulmonary nodules which are probably metastatic sites or postinflammatory. 4.? Small RIGHT pleural effusion with minimal bibasilar atelectasis. 5.? Metastatic lytic lesions throughout the thoracic spine and ribs. Most significant involvement of T5 and T9 with encroachment into the thoracic cord and foramina. No obvious cord compression at this time. 6.? Extensive metastatic disease throughout the sternum. 7.? Known hepatic metastatic disease. 8.? Ascites. UTI -follow urine cultures, blood cultures -Continue Rocephin Generalized weakness -CT head WNL -TSH high,start levothyroxine 25mcg On 3 L, does not use oxygen-monitor PT OT Full code ? Attestations Medical Necessity Statement*: patient requires hospitalization for metastatic malignancy, uti, dehydration, deconditoning Coding Level of Care Code Acute Assistant Clinical Director for Chg Fwd Diagnoses Metastatic cancer to bone C79.51 Metastatic cancer to liver C78.7 Bacterial UTI N39.0; A49.9 Infectious encephalopathy G93.49; B99.9 Dehydration E86.0 Generalized weakness R53.1
[2022-04-05 12:58] LABS: Carcinoembryonic Antigen 0.6 ng/mL (0.0-4.7)
[2022-04-05] MEDS: cefTRIAXone 1,000 MG in sodium chloride 0.9% (plus) 50 ML 100 MG IV (15:28)
[2022-04-05] MEDS: lactated ringers 1,000 ML 100 ML IV (15:29)
[2022-04-05] MEDS: pantoprazole 40 mg SDV IVP (17:16)
[2022-04-05] MEDS: enoxaparin 40 mg/0.4 mL Syringe SUBCUT (17:16)
[2022-04-06] VITALS (7 sets, daily range): BP systolic 107–120; BP diastolic 71–85; PULSE 90–103; RESP 16–26; TEMP 36.3–36.9; O2SAT 93–97
[2022-04-06] MEDS: lactated ringers 1,000 ML 100 ML IV (01:34)
[2022-04-06] MEDS: levothyroxine 25 mcg Tablet PO (06:08)
--- NOTE | 2022-04-06 07:14 | PC.NURSE ---
Report given to Ayesha PENDLETON at this time
[2022-04-06 08:29] LABS: Basophils % 0.3 %; Eosinophils # 0.1 10^3/uL (0.0-0.8); Eosinophils % 0.8 %; Hemoglobin 10.6 g/dL (11.5-15.3); Lymphocytes # 0.5 10^3/uL (0.8-4.8); Lymphocytes % 5.8 %; Mean Corpuscular HGB Conc 33.1 g/dL (30.0-36.0); Mean Corpuscular Hemoglobin 30.5 pg (28.0-34.0); Mean Platelet Volume 9.4 fL (7.4-10.4); Monocytes # 0.6 10^3/uL (0.2-0.9); Monocytes % 6.9 %; Neutrophils # 7.49 10^3/uL (1.8-7.7); Neutrophils % 85.7 %; Nucleated Red Blood Cells % 0 %; Platelet Count 121 10^3/cmm (130-400); Red Blood Count 3.48 10^6/uL (4.1-5.3); Red Cell Distribution Width 14.8 % (12.1-15.1); White Blood Count 8.7 10^3/uL (4.0-10.0)
[2022-04-06 08:54] LABS: Alanine Aminotransferase 10 U/L (0-33); Albumin Level 2.6 g/dL (3.5-5.2); Alkaline Phosphatase 146 U/L (35-105); Anion Gap 10.5 (5-19); Aspartate Amino Transferase 35 U/L (0-32); Blood Urea Nitrogen 29 mg/dL (8-23); Calcium 10.1 mg/dL (8.5-10.5); Carbon Dioxide 27 mmol/L (22-29); Chloride 95 mmol/L (98-107); Globulin 2.4 g/dL (1.3-4.6); Glucose 104 mg/dL (65-115); Osmolality Calculated 272 mOsm/kg (285-295); Potassium 4.5 mmol/L (3.5-5.1); Sodium 128 mmol/L (136-145); Total Bilirubin 0.6 mg/dL (0.15-1.2)
--- NOTE | 2022-04-06 11:39 | P.PN_ITS ---
Subjective Subjective: Patient was seen this morning, she tells that she continues to have weakness, she does not want her family to know about what is going on at with her here in the hospital, she tells me that a have to monitor, and they try to control her, she also does not want her family members know about her cancer diagnosis, she will tell them in her own way and in her own time Vitals/I&O/Wt Last Vital Signs Temp 98 F 04/06/22 08:00 Pulse 103 H 04/06/22 11:34 Resp 17 04/06/22 08:00 BP 120/85 04/06/22 08:00 Pulse Ox 93 04/06/22 11:34 O2 Del Method 04/06/22 11:34 O2 Flow Rate 3 04/06/22 11:34 04/05/22 04/06/22 04/06/22 22:59 06:59 14:59 Intake Total 290 / 1530 1480 / 3010 Output Total Balance 290 / 1530 1479 / 3009 Weight last 48 hrs Weight 74.843 kg Physical Exam Const: COMMON NORMALS: no acute distress and patient oriented x3 Resp: COMMON NORMALS: normal respiratory effort, No retractions, No use of accessory muscles and clear to auscultation bilaterally AUSCULTATION: clear to auscultation bilaterally Cardio: COMMON NORMALS: regular rate, regular rhythm, S1 normal heart sound present and S2 normal heart sound present RATE: regular rate RHYTHM: regular rhythm HEART SOUNDS: S1 normal heart sound present and S2 normal heart sound present GI: COMMON NORMALS: Normal to inspection, nondistended, normoactive bowel sounds present and non-tender Extremity: COMMON NORMALS: no pedal edema Neuro: COMMON NORMALS: patient oriented x3 Psych: COMMON NORMALS: mental status grossly normal Data 04/06/22 07:28 04/06/22 07:28 Micro: Microbiology 04/04/22 15:17 Blood Culture - Preliminary Blood NEGATIVE TO DATE 04/04/22 15:15 Blood Culture - Preliminary Blood NEGATIVE TO DATE 04/04/22 13:55 Urine Culture - Preliminary Urine,Clean Catch Gram Negative Rods A&P Assessment and plan (1) Metastatic cancer to bone: (2) 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 There is hepatomegaly the liver span is 19 cm.? There are multiple areas of decreased density diffusely throughout the right hepatic lobe corresponding to hematogenous metastatic disease. .? Gallbladder and bile ducts: Normal. No calcified stones. No ductal dilation. Pancreas:? Atrophic appearing No ductal dilation. Spleen: Normal. No splenomegaly. Adrenal glands: Normal. No mass. Kidneys and ureters: Normal. No hydronephrosis.? Negative for urinary tract stones Stomach and bowel: Unremarkable. No obstruction. No mucosal thickening. Appendix: No evidence of appendicitis. Intraperitoneal space:? There is moderate diffuse abdominal and pelvic peritoneal ascites fluid is seen in the perihepatic, perisplenic, bilateral pericolic gutters, and in the pelvis. Vasculature:? The aorta is ectatic calcified without evidence of aneurysm. Lymph nodes: Unremarkable. No enlarged lymph nodes. Urinary bladder: Unremarkable as visualized. Reproductive:? A normal uterus is not visible corresponding to hysterectomy. Bones/joints:? A circumscribed mass is present in the posterior aspect of the T9 vertebral body on the left side. This finding measures 25.9 mm x 25.8 mm.? There is a small mass seen in the left side of the T10 vertebral body measuring 9 mm The left sacral bone and the S1 vertebral body on the left side displays a large decreased density lobulated mass measuring 50 mm x 53 mm. 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 This lesion is amenable to percutaneous biopsy The lumbar spine shows osteoarthritis. Soft tissues: Unremarkable. CT/CT abdomen pelvis wo con [id number] IMPRESSION: 1. Hepatomegaly and hepatic metastatic disease. 2. 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 3. Tumor mass is seen in the T9 and T10 vertebral bodies 4. Diffuse abdominal and pelvic peritoneal ascites. 5. Negative for urinary tract stones or urinary outflow tract obstruction. 6.Status post hysterectomy. 7. Right lower lobe small pleural effusion 1.? No pulmonary embolism. 2.? Ectatic thoracic aorta. 3.? There are a few scattered subcentimeter pulmonary nodules which are probably metastatic sites or postinflammatory. 4.? Small RIGHT pleural effusion with minimal bibasilar atelectasis. 5.? Metastatic lytic lesions throughout the thoracic spine and ribs. Most significant involvement of T5 and T9 with encroachment into the thoracic cord and foramina. No obvious cord compression at this time. 6.? Extensive metastatic disease throughout the sternum. 7.? Known hepatic metastatic disease. 8.? Ascites. -We will have patient follow-up with oncology as outpatient -Patient does not want family members to know about her cancer diagnosis, she tells me that she will tell them in her own time and in her own way Hyponatremia, 128, possibly malignancy related, possible SIADH UTI -follow urine cultures, blood cultures -Continue Rocephin Generalized weakness -CT head WNL -TSH high,start levothyroxine 25mcg On 3 L, does not use oxygen-monitor PT OT Full code ? Attestations Medical Necessity Statement*: Patient requires hospitalization for metastatic cancer a UTI, weakness Coding Level of Care Code Acute Marketing Senior Recruiter for Chg Fwd Diagnoses Metastatic cancer to bone C79.51 Metastatic cancer to liver C78.7 Bacterial UTI N39.0; A49.9 Infectious encephalopathy G93.49; B99.9 Dehydration E86.0 Generalized weakness R53.1
[2022-04-06] MEDS: cefTRIAXone 1,000 MG in sodium chloride 0.9% (plus) 50 ML 100 MG IV (14:23)
[2022-04-06] MEDS: pantoprazole 40 mg SDV IVP (17:16)
[2022-04-06] MEDS: enoxaparin 40 mg/0.4 mL Syringe SUBCUT (17:17)
[2022-04-07] VITALS (8 sets, daily range): BP systolic 106–123; BP diastolic 71–82; PULSE 70–100; RESP 16–23; TEMP 36.3–36.7; O2SAT 96–97
[2022-04-07 05:23] LABS: Basophils % 0.2 %; Eosinophils # 0.1 10^3/uL (0.0-0.8); Eosinophils % 0.7 %; Hematocrit 31.3 % (37.0-47.0); Hemoglobin 10.7 g/dL (11.5-15.3); Lymphocytes # 0.6 10^3/uL (0.8-4.8); Lymphocytes % 6.3 %; Mean Corpuscular HGB Conc 34.2 g/dL (30.0-36.0); Mean Corpuscular Hemoglobin 30.7 pg (28.0-34.0); Mean Corpuscular Volume 89.9 fl (81-99); Mean Platelet Volume 10.1 fL (7.4-10.4); Monocytes # 0.6 10^3/uL (0.2-0.9); Monocytes % 6.3 %; Neutrophils # 8.06 10^3/uL (1.8-7.7); Neutrophils % 85.9 %; Nucleated Red Blood Cells % 0 %; Platelet Count 139 10^3/cmm (130-400); Red Blood Count 3.48 10^6/uL (4.1-5.3); Red Cell Distribution Width 14.9 % (12.1-15.1); White Blood Count 9.4 10^3/uL (4.0-10.0)
[2022-04-07 05:48] LABS: Alanine Aminotransferase 11 U/L (0-33); Albumin Level 2.6 g/dL (3.5-5.2); Alkaline Phosphatase 143 U/L (35-105); Anion Gap 12.4 (5-19); Aspartate Amino Transferase 35 U/L (0-32); Blood Urea Nitrogen 26 mg/dL (8-23); Calcium 10.2 mg/dL (8.5-10.5); Carbon Dioxide 24 mmol/L (22-29); Chloride 97 mmol/L (98-107); Globulin 2.4 g/dL (1.3-4.6); Glucose 107 mg/dL (65-115); Magnesium 1.6 mg/dL (1.7-2.3); Osmolality Calculated 273 mOsm/kg (285-295); Potassium 4.4 mmol/L (3.5-5.1); Sodium 129 mmol/L (136-145); Total Bilirubin 0.6 mg/dL (0.15-1.2)
[2022-04-07] MEDS: levothyroxine 25 mcg Tablet PO (06:10)
[2022-04-07] MEDS: sodium chloride 1 gm Tablet PO ×2 (09:11→18:41)
[2022-04-07] MEDS: magnesium sulfate premix 2 GM/50 ML PIGGYBACK IV (09:11)
--- NOTE | 2022-04-07 10:47 | PC.SOCIAL ---
IMM update IMM updated with patient. Verbalized an understanding. Copy Pg 2 provided. Initialled, dated, timed, and placed in chart.
--- NOTE | 2022-04-07 12:40 | PM.PN ---
Subjective Subjective: Patient was seen this morning -I was finally able to have a family meeting with patient and her daughter and she was agreeable for me to speak to her daughter about everything -I in detail discussed her hospitalization, UTI her deconditioning her hyponatremia -I think that overall she is doing better she is better from a UTI -Her hyponatremia persists, started on salt tablets, but I am worried that it might be related from her malignancy -She has evidence of metastatic malignancy, primary is unknown but it might be GI, she needs to follow-up with oncology as outpatient she needs to have a colonoscopy -Stage is unknown, but likely greater than 3-4, as it is metastatic however primary is unknown, the type of malignancy is unknown and she needs to have a biopsy but we will arrange this all as outpatient -I am worried about her going home and being by herself -Daughter and I spoke to patient in detail and the plan is for family to arrange enough care for her at home, they are getting chairlift, getting all equipment for her -Family needs time to set everything up hopefully she can to be discharged over the weekend all parties in agreement Vitals/I&O/Wt Last Vital Signs Temp 98.0 F 04/07/22 12:00 Pulse 70 04/07/22 12:00 Resp 16 04/07/22 12:00 BP 108/76 04/07/22 12:00 Pulse Ox 97 04/07/22 12:00 O2 Del Method 04/07/22 12:00 O2 Flow Rate 3 04/06/22 21:52 04/06/22 04/07/22 04/07/22 22:59 06:59 14:59 Intake Total 250 / 1660 450 / 2110 Output Total 100 / 100 Balance 250 / 1660 350 / 2010 Weight last 48 hrs Weight 80.541 kg Physical Exam Const: COMMON NORMALS: no acute distress and patient oriented x3 Resp: COMMON NORMALS: normal respiratory effort, No retractions, No use of accessory muscles and clear to auscultation bilaterally AUSCULTATION: clear to auscultation bilaterally Cardio: COMMON NORMALS: regular rate, regular rhythm, S1 normal heart sound present and S2 normal heart sound present RATE: regular rate RHYTHM: regular rhythm HEART SOUNDS: S1 normal heart sound present and S2 normal heart sound present GI: COMMON NORMALS: Normal to inspection, nondistended, normoactive bowel sounds present and non-tender Extremity: COMMON NORMALS: no pedal edema Neuro: COMMON NORMALS: patient oriented x3 Psych: COMMON NORMALS: mental status grossly normal Data 04/07/22 04:53 04/07/22 04:53 Micro: Microbiology 04/04/22 13:55 Urine Culture - Final Urine,Clean Catch Klebsiella pneumoniae A&P Assessment and plan (1) Metastatic cancer to bone: (2) Metastatic cancer to liver: (3) Bacterial UTI: (4) Infectious encephalopathy: (5) Dehydration: (6) Generalized weakness: (7) Muscular deconditioning: (8) Protein calorie malnutrition: Plan metastatic cancer of unknown primary Right lower lobe pleural effusion and pleural thickening Liver:? There is hepatomegaly the liver span is 19 cm.? There are multiple areas of decreased density diffusely throughout the right hepatic lobe corresponding to hematogenous metastatic disease. .? Gallbladder and bile ducts: Normal. No calcified stones. No ductal dilation. Pancreas:? Atrophic appearing No ductal dilation. Spleen: Normal. No splenomegaly. Adrenal glands: Normal. No mass. Kidneys and ureters: Normal. No hydronephrosis.? Negative for urinary tract stones Stomach and bowel: Unremarkable. No obstruction. No mucosal thickening. Appendix: No evidence of appendicitis. Intraperitoneal space:? There is moderate diffuse abdominal and pelvic peritoneal ascites fluid is seen in the perihepatic, perisplenic, bilateral pericolic gutters, and in the pelvis. Vasculature:? The aorta is ectatic calcified without evidence of aneurysm. Lymph nodes: Unremarkable. No enlarged lymph nodes. Urinary bladder: Unremarkable as visualized. Reproductive:? A normal uterus is not visible corresponding to hysterectomy. Bones/joints:? A circumscribed mass is present in the posterior aspect of the T9 vertebral body on the left side. This finding measures 25.9 mm x 25.8 mm.? There is a small mass seen in the left side of the T10 vertebral body measuring 9 mm The left sacral bone and the S1 vertebral body on the left side displays a large decreased density lobulated mass measuring 50 mm x 53 mm. 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 This lesion is amenable to percutaneous biopsy The lumbar spine shows osteoarthritis. Soft tissues: Unremarkable. CT/CT abdomen pelvis wo con [id number] IMPRESSION: 1. Hepatomegaly and hepatic metastatic disease. 2. 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 3. Tumor mass is seen in the T9 and T10 vertebral bodies 4. Diffuse abdominal and pelvic peritoneal ascites. 5. Negative for urinary tract stones or urinary outflow tract obstruction. 6.Status post hysterectomy. 7. Right lower lobe small pleural effusion 1.? No pulmonary embolism. 2.? Ectatic thoracic aorta. 3.? There are a few scattered subcentimeter pulmonary nodules which are probably metastatic sites or postinflammatory. 4.? Small RIGHT pleural effusion with minimal bibasilar atelectasis. 5.? Metastatic lytic lesions throughout the thoracic spine and ribs. Most significant involvement of T5 and T9 with encroachment into the thoracic cord and foramina. No obvious cord compression at this time. 6.? Extensive metastatic disease throughout the sternum. 7.? Known hepatic metastatic disease. 8.? Ascites. -We will have patient follow-up with oncology as outpatient -Needs to have colonoscopy as possible GI source -Needs to have biopsy arranged through oncology as outpatient -He is to follow-up with oncology -I was able to talk to her daughter about her diagnosis -CEA within normal limits, CA 19 within normal limits, CA125 129 -Possibly requires automobile travel club counselor eval as outpatient Hyponatremia, 129 possibly malignancy related, possible SIADH, started on salt tablets UTI -follow urine cultures, blood cultures -Continue Rocephin Generalized weakness -CT head WNL -TSH high,start levothyroxine 25mcg On 3 L, does not use oxygen-monitor PT OT Full code ? Attestations Medical Necessity Statement*: Patient requires hospitalization for deconditioning, weakness Coding Level of Care Code Acute Viscose Cellar Worker for Chg Fwd Diagnoses Metastatic cancer to bone C79.51 Metastatic cancer to liver C78.7 Bacterial UTI N39.0; A49.9 Infectious encephalopathy G93.49; B99.9 Dehydration E86.0 Generalized weakness R53.1 Muscular deconditioning R29.898 Protein calorie malnutrition E46
[2022-04-07 12:43] LABS: Beta-2-Microglobulin 5.47 mg/L (< OR = 2.51)
[2022-04-07 14:07] LABS: KAPPA LIGHT CHAIN, FREE, SERUM 34.2 mg/L (3.3-19.4); KAPPA/LAMBDA LIGHT CHAINS FREE 1.49 (0.26-1.65)
[2022-04-07] MEDS: cefTRIAXone 1,000 MG in sodium chloride 0.9% (plus) 50 ML 100 MG IV (15:53)
--- NOTE | 2022-04-07 22:31 | PC.NURSE ---
Discussed with patient the reason for SCDs and alex mendosa. Patient verbalized understanding and did not want them on.
[2022-04-08] VITALS (11 sets, daily range): BP systolic 103–134; BP diastolic 70–91; PULSE 87–106; RESP 15–19; TEMP 36.4–36.8; O2SAT 91–95
[2022-04-08 06:04] LABS: Basophils % 0.2 %; Eosinophils % 0.4 %; Hematocrit 31.7 % (37.0-47.0); Hemoglobin 10.4 g/dL (11.5-15.3); Lymphocytes # 0.5 10^3/uL (0.8-4.8); Lymphocytes % 5.5 %; Mean Corpuscular HGB Conc 32.8 g/dL (30.0-36.0); Mean Corpuscular Hemoglobin 30.2 pg (28.0-34.0); Mean Corpuscular Volume 92.2 fl (81-99); Mean Platelet Volume 9.7 fL (7.4-10.4); Monocytes # 0.6 10^3/uL (0.2-0.9); Monocytes % 6.7 %; Neutrophils % 86.4 %; Nucleated Red Blood Cells % 0 %; Platelet Count 149 10^3/cmm (130-400); Red Blood Count 3.44 10^6/uL (4.1-5.3); Red Cell Distribution Width 14.8 % (12.1-15.1); White Blood Count 8.9 10^3/uL (4.0-10.0)
[2022-04-08 06:25] LABS: Alanine Aminotransferase 10 U/L (0-33); Albumin Level 2.6 g/dL (3.5-5.2); Alkaline Phosphatase 146 U/L (35-105); Anion Gap 11.5 (5-19); Aspartate Amino Transferase 36 U/L (0-32); Blood Urea Nitrogen 23 mg/dL (8-23); Calcium 10.1 mg/dL (8.5-10.5); Carbon Dioxide 25 mmol/L (22-29); Chloride 95 mmol/L (98-107); Globulin 2.3 g/dL (1.3-4.6); Glucose 101 mg/dL (65-115); Magnesium 1.9 mg/dL (1.7-2.3); Osmolality Calculated 268 mOsm/kg (285-295); Potassium 4.5 mmol/L (3.5-5.1); Sodium 127 mmol/L (136-145); Total Bilirubin 0.5 mg/dL (0.15-1.2); Total Protein 4.9 g/dL (6.6-8.7)
[2022-04-08] MEDS: levothyroxine 25 mcg Tablet PO (06:35)
[2022-04-08] MEDS: sodium chloride 1 gm Tablet PO ×2 (07:32→20:17)
[2022-04-08] MEDS: cefTRIAXone 1,000 MG in sodium chloride 0.9% (plus) 50 ML 100 MG IV (16:05)
--- NOTE | 2022-04-08 16:29 | PM.PN ---
Subjective Subjective: Sodium this morning continues to be at 127. No acute interim events otherwise. Still significantly deconditioned. Pain is better controlled. Medications: Reviewed: Yes Vitals/I&O/Wt Last Vital Signs Temp 98.0 F 04/08/22 16:00 Pulse 97 04/08/22 16:00 Resp 15 04/08/22 16:00 BP 113/80 04/08/22 16:00 Pulse Ox 95 04/08/22 16:00 O2 Del Method 04/08/22 16:00 O2 Flow Rate 3 04/08/22 08:00 04/08/22 04/08/22 04/08/22 06:59 14:59 22:59 Intake Total 480 / 480 Output Total 0 / 90 Balance 0 / 590 480 / 480 Weight last 48 hrs Weight 82.917 kg Weight 80.541 kg Physical Exam Narrative: General: No acute distress, AO x3 HEENT: PERRLA, pupils bilaterally equal and reactive, pallors not present Chest: Normal vesicular breath sounds, no added sounds, equal good air entry bilaterally CVS: S1-S2 regular, no murmurs, no tachycardia, no gallops, no rubs Abdomen: Soft, nontender, no organomegaly, bowel sounds present Neuro: No focal deficits, no facial deformity, AO x3, deconditoning noted Data 04/08/22 05:12 04/08/22 05:12 Other Labs: Radiology Impressions Chest X-Ray 04/04/22 13:07 IMPRESSION: No acute findings. Abdomen/Pelvis CT 04/04/22 15:37 IMPRESSION: 1. Hepatomegaly and hepatic metastatic disease. 2. 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 3. Tumor mass is seen in the T9 and T10 vertebral bodies 4. Diffuse abdominal and pelvic peritoneal ascites. 5. Negative for urinary tract stones or urinary outflow tract obstruction. 6.Status post hysterectomy. 7. Right lower lobe small pleural effusion Head CT 04/04/22 15:54 IMPRESSION: No acute intracranial abnormality. Chest CTA 04/05/22 08:32 IMPRESSION: 1. No pulmonary embolism. 2. Ectatic thoracic aorta. 3. There are a few scattered subcentimeter pulmonary nodules which are probably metastatic sites or postinflammatory. 4. Small RIGHT pleural effusion with minimal bibasilar atelectasis. 5. Metastatic lytic lesions throughout the thoracic spine and ribs. Most significant involvement of T5 and T9 with encroachment into the thoracic cord and foramina. No obvious cord compression at this time. 6. Extensive metastatic disease throughout the sternum. 7. Known hepatic metastatic disease. 8. Ascites. Notified Matthew Luciano MD at 04/05/2022 9:40 AM. Laboratory Results WBC 8.9 10^3/uL (4.0-10.0) 04/08/22 05:12 RBC 3.44 10^6/uL (4.1-5.3) L 04/08/22 05:12 Hgb 10.4 g/dL (11.5-15.3) L 04/08/22 05:12 Hct 31.7 % (37.0-47.0) L 04/08/22 05:12 MCV 92.2 fl (81-99) 04/08/22 05:12 MCH 30.2 pg (28.0-34.0) 04/08/22 05:12 MCHC 32.8 g/dL (30.0-36.0) 04/08/22 05:12 RDW 14.8 % (12.1-15.1) 04/08/22 05:12 Plt Count 149 10^3/cmm (130-400) 04/08/22 05:12 MPV 9.7 fL (7.4-10.4) 04/08/22 05:12 Neut % (Auto) 86.4 % 04/08/22 05:12 Lymph % (Auto) 5.5 % 04/08/22 05:12 [place] % (Auto) 6.7 % 04/08/22 05:12 Eos % (Auto) 0.4 % 04/08/22 05:12 Baso % (Auto) 0.2 % 04/08/22 05:12 Neut # (Auto) 7.70 10^3/uL (1.8-7.7) 04/08/22 05:12 Lymph # (Auto) 0.5 10^3/uL (0.8-4.8) L 04/08/22 05:12 [place] # (Auto) 0.6 10^3/uL (0.2-0.9) 04/08/22 05:12 Eos # (Auto) 0.0 10^3/uL (0.0-0.8) 04/08/22 05:12 Baso # (Auto) 0.0 10^3/uL (0.0-0.1) 04/08/22 05:12 Nucleated RBC % (auto) 0 % 04/08/22 05:12 Nucleated RBCs # 0.0 /100WBC 04/08/22 05:12 Sodium 127 mmol/L (136-145) L 04/08/22 05:12 Potassium 4.5 mmol/L (3.5-5.1) 04/08/22 05:12 Chloride 95 mmol/L (98-107) L 04/08/22 05:12 Carbon Dioxide 25 mmol/L (22-29) 04/08/22 05:12 Anion Gap 11.5 (5-19) 04/08/22 05:12 BUN 23 mg/dL (8-23) 04/08/22 05:12 Creatinine 0.5 mg/dL (0.5-0.9) 04/08/22 05:12 GFR Calculation Not Reportable 04/08/22 05:12 Glucose 101 mg/dL (65-115) 04/08/22 05:12 Estimat Average Glucose 88 04/04/22 16:45 Hemoglobin A1c 4.7 % (4.0-6.0) 04/04/22 16:45 Calculated Osmolality 268 mOsm/kg (285-295) L 04/08/22 05:12 Lactic Acid 2.1 mmol/L (0.5-2.2) 04/04/22 16:45 Lactic Acid (Sepsis) 1.8 mmol/L (0.5-2.2) 04/04/22 20:00 Calcium 10.1 mg/dL (8.5-10.5) 04/08/22 05:12 Phosphorus 2.6 mg/dL (2.5-4.5) 04/05/22 05:07 Magnesium 1.9 mg/dL (1.7-2.3) 04/08/22 05:12 Total Bilirubin 0.5 mg/dL (0.15-1.2) 04/08/22 05:12 AST 36 U/L (0-32) H 04/08/22 05:12 ALT 10 U/L (0-33) 04/08/22 05:12 Alkaline Phosphatase 146 U/L (35-105) H 04/08/22 05:12 Troponin T Baseline 39 ng/L (0-10) H 04/04/22 16:45 Troponin T 120 Minute 42.54 ng/L (0-10) H 04/04/22 18:13 Delta Troponin T 3.54 ABS# (0-10) 04/04/22 18:13 Troponin T Hi Sens 6Hr 41.67 ng/L (0-10) H 04/04/22 23:23 Troponin T Hi Sens 6Hr Delta 2.67 ng/L (0-12) 04/04/22 23:23 C-Reactive Protein 85.2 mg/L (0.0-4.9) H 04/04/22 13:36 Total Protein 4.9 g/dL (6.6-8.7) L 04/08/22 05:12 Albumin 2.6 g/dL (3.5-5.2) L 04/08/22 05:12 Globulin 2.3 g/dL (1.3-4.6) 04/08/22 05:12 Ejcp-0-Ahiciyidmlush 5.47 mg/L (< OR = 2.51) H 04/04/22 13:36 Triglycerides 108 mg/dL (0-150) 04/04/22 16:45 Cholesterol 129 mg/dL (0-200) 04/04/22 16:45 LDL Cholesterol, Calc 56 mg/dL (50-129) 04/04/22 16:45 HDL Cholesterol 51 mg/dL (60-100) L 04/04/22 16:45 LDL/HDL Ratio 1.10 RATIO (0.00-3.22) 04/04/22 16:45 Cholesterol/HDL Ratio 2.53 mg/dL (0.0-4.40) 04/04/22 16:45 Carcinoembryonic Ag 0.6 ng/mL (0.0-4.7) 04/05/22 05:07 CA 19-9 Antigen 18.05 U/mL (0-35) 04/05/22 05:07 CA 125 Antigen 229.6 U/mL (0-35) H 04/05/22 05:07 Procalcitonin 0.61 ng/mL (0-0.5) H 04/04/22 13:36 TSH 7.05 uIU/mL (0.27-4.20) H 04/04/22 13:36 Free T4 1.12 ng/dL (0.82-1.77) 04/04/22 16:45 Free T3 1.7 PG/ML (2.0-4.4) L 04/04/22 16:45 Urine Color Yellow (Yellow) 04/04/22 13:55 Urine Appearance Cloudy (CLEAR) A 04/04/22 13:55 Urine pH 5 (5-7) 04/04/22 13:55 Ur Specific [place] 1.025 (1.005-1.030) 04/04/22 13:55 Urine Protein 1+ (Negative) H 04/04/22 13:55 Urine Glucose (UA) Norm (Normal) 04/04/22 13:55 Urine Ketones 1+ (Negative) H 04/04/22 13:55 Urine Blood Neg (Negative) 04/04/22 13:55 Urine Nitrate Negative (Negative) 04/04/22 13:55 Urine Bilirubin 1+ (Negative) H 04/04/22 13:55 Urine Urobilinogen 4 mg/dL (Negative) H 04/04/22 13:55 Ur Leukocyte Esterase 2+ (Negative) H 04/04/22 13:55 Urine RBC 0-4 /hpf (0-2) H 04/04/22 13:55 Urine WBC >100 /hpf (0-5) H 04/04/22 13:55 Ur Squamous Epith Cells 0-4 /hpf (0-5) H 04/04/22 13:55 Amorphous Sediment Not Reportable 04/04/22 13:55 Urine Bacteria 4+ /hpf (NONE) H 04/04/22 13:55 Urine Mucus 2+ /hpf 04/04/22 13:55 Free [place] Light Chains 34.2 mg/L (3.3-19.4) H 04/04/22 13:36 Free Lambda Light Chain 23.0 mg/L (5.7-26.3) 04/04/22 13:36 Free [place]/Lambda Ratio 1.49 (0.26-1.65) 04/04/22 13:36 Micro: Microbiology 04/04/22 13:55 Urine,Clean Catch Urine Culture - Final Klebsiella pneumoniae Kleb pneum M.I.C. RX --------- ------ * Amikacin <=16 S * Amoxicillin/Clavulanate <=8/4 S * Ampicillin >16 R * Ampicillin/Sulbactam <=8/4 S * Aztreonam <=4 S * Cefepime <=8 S * Ceftriaxone <=1 S * Cefuroxime 8 S * Ciprofloxacin <=1 S * Gentamicin <=2 S * Imipenem <=1 S * Levofloxacin <=2 S * Nitrofurantoin >64 R * Tetracycline <=4 S * Trimethoprim/Sulfamethoxazole <=2/38 S * Piperacillin/Tazobactam <=16 S 04/04/22 15:17 Blood Blood Culture - Preliminary NEGATIVE TO DATE 04/04/22 15:15 Blood Blood Culture - Preliminary NEGATIVE TO DATE A&P Assessment and plan (1) Protein calorie malnutrition: (2) Muscular deconditioning: (3) Metastatic 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 Multiple bony mets in the thoracic, lumbosacral spine and ribs. As noted above -CEA within normal limits, CA 19 within normal limits, CA125 12 -Patient will need tissue diagnosis, likely from her bony mets metastases for definitive diagnosis of her malignancy. This could be best attempted with IR guided biopsy. I have discussed with the patient that we do not have a dedicated IR service, however we do pulm perform some dedicated procedures here. We could discuss with the radiologist on Sunday (only V rad available over the weekend) to check if one of the lesions may be amenable to a percutaneous biopsy. Additional way to approach this might be through general surgery, however general surgery coverage is also not available this weekend therefore I am unable to know until Sunday if tissue diagnosis would be feasible here. We may be able to attempt a paracentesis or thoracentesis here with cytology, however this will likely be lower yield than attempting a bone biopsy. After discussion with her family, even prior to me discussing these options, patient actually wishes to be transferred to a higher center, preferably [facility] for an expedited cancer work-up. She has several family members with a history of MGUS/multiple myeloma and is very concerned about this possibility in her case as well. I will attempt to call [facility] and other [facility] in the [facility] to see if they may be able to transfer her for an expedited work-up. Hyponatremia, 127 today, possibly malignancy related, possible SIADH, started on salt tablets, increase to 1gm TID UTI -URine cx with Klebsiella pneumoniae -Continue Rocephin as suceptible isolate Generalized weakness, significant deconditioning likely from metasatic disease -CT head WNL -TSH high,low ft3 at 1.7, start levothyroxine 25mcg PT OT Full code ? Attestations Medical Necessity Statement*: hyponatremia, increase po salt, monitor na with am labs, attempting expited cancer w/up Coding Level of Care Code Acute Supervisor Farm Equipment Maintenance for Chg Fwd Diagnoses Protein calorie malnutrition E46 Muscular deconditioning R29.898 Metastatic cancer to bone C79.51 Metastatic cancer to liver C78.7 Generalized weakness R53.1 Hyponatremia E87.1 Bacterial UTI N39.0; A49.9 Infectious encephalopathy G93.49; B99.9 Dehydration E86.0
[2022-04-08] MEDS: enoxaparin 40 mg/0.4 mL Syringe SUBCUT (17:58)
[2022-04-08] MEDS: pantoprazole 40 mg SDV IVP (17:58)
[2022-04-09] VITALS (8 sets, daily range): BP systolic 102–138; BP diastolic 64–81; PULSE 84–108; RESP 16–19; TEMP 36.4–36.8; O2SAT 91–98
[2022-04-09 04:21] LABS: Basophils % 0.2 %; Eosinophils % 0.4 %; Hematocrit 32.5 % (37.0-47.0); Hemoglobin 10.7 g/dL (11.5-15.3); Lymphocytes # 0.5 10^3/uL (0.8-4.8); Lymphocytes % 5.6 %; Mean Corpuscular HGB Conc 32.9 g/dL (30.0-36.0); Mean Corpuscular Hemoglobin 30.2 pg (28.0-34.0); Mean Corpuscular Volume 91.8 fl (81-99); Mean Platelet Volume 9.4 fL (7.4-10.4); Monocytes # 0.6 10^3/uL (0.2-0.9); Monocytes % 6.7 %; Neutrophils # 7.74 10^3/uL (1.8-7.7); Neutrophils % 86.4 %; Nucleated Red Blood Cells % 0 %; Platelet Count 157 10^3/cmm (130-400); Red Blood Count 3.54 10^6/uL (4.1-5.3); Red Cell Distribution Width 14.7 % (12.1-15.1)
[2022-04-09 04:35] LABS: Alanine Aminotransferase 11 U/L (0-33); Albumin Level 2.6 g/dL (3.5-5.2); Alkaline Phosphatase 163 U/L (35-105); Anion Gap 11.3 (5-19); Aspartate Amino Transferase 35 U/L (0-32); Blood Urea Nitrogen 24 mg/dL (8-23); Calcium 10.1 mg/dL (8.5-10.5); Carbon Dioxide 24 mmol/L (22-29); Chloride 88 mmol/L (98-107); Globulin 2.3 g/dL (1.3-4.6); Glucose 98 mg/dL (65-115); Magnesium 1.8 mg/dL (1.7-2.3); Osmolality Calculated 252 mOsm/kg (285-295); Potassium 4.3 mmol/L (3.5-5.1); Total Bilirubin 0.6 mg/dL (0.15-1.2); Total Protein 4.9 g/dL (6.6-8.7)
[2022-04-09 05:11] LABS: Sodium 119 mmol/L (136-145)
[2022-04-09] MEDS: levothyroxine 25 mcg Tablet PO (05:21)
--- NOTE | 2022-04-09 06:22 | PC.NURSE ---
SON HERE TO VISIT It was reported to this nurse as well as charge nurse that pts son Anson Castillo was not to be allowed to visit pt or be given any information regarding her hospitalization. Sign had been placed on pts room door for visitors to check at nurses station and registration desk as well as Security were alerted to this. Charge nurse came to me and said that she had just seen pts son walk past motel front desk attendant and entered pts room without stopping. Security was alerted and went immediately to pts room to check on her. Son was sitting on bed bedside pt holding her hand. Pt told nurses that everything was fine. Security had called Police Dept as he had been instructed. Officer was quickly here and both officer and security went into pts room. Son was asked to wait in suero with security while officer talked with pt. Pt told officer it was fine for her son to be here. Son was calm and cooperative
[2022-04-09 06:35] LABS: Anion Gap 12.5 (5-19); Blood Urea Nitrogen 23 mg/dL (8-23); Calcium 10.3 mg/dL (8.5-10.5); Carbon Dioxide 24 mmol/L (22-29); Chloride 92 mmol/L (98-107); Glucose 94 mg/dL (65-115); Osmolality Calculated 261 mOsm/kg (285-295); Potassium 4.5 mmol/L (3.5-5.1); Sodium 124 mmol/L (136-145)
--- NOTE | 2022-04-09 06:45 | PC.NURSE ---
CRITICAL NA LEVEL/REPEAT LAB Pt Na level called to nurse as critical at 119. Was 127 yesterday. Order for stat repeat BMP which resulted Na level as 124
[2022-04-09] MEDS: sodium chloride 1 gm Tablet PO ×3 (08:13→20:28)
--- NOTE | 2022-04-09 11:32 | PC.SOCIAL ---
IMM update IMM updated with patient and family. Copy Pg 2 provided. Verbalized an understanding. Initialled, dated, timed, and placed in chart.
[2022-04-09] MEDS: cefTRIAXone 1,000 MG in sodium chloride 0.9% (plus) 50 ML 100 MG IV (15:13)
--- NOTE | 2022-04-09 16:17 | P.PN_ITS ---
Subjective Subjective: Complaining of generalized weakness again today. Has some pain in bilateral lower extremities. Sodium was 119 overnight, this morning corrected to 124. Requiring 3 L/min supplemental O2, however appears to be more tachypneic in conversation today. Medications: Reviewed: Yes Vitals/I&O/Wt Last Vital Signs Temp 97.7 F 04/09/22 15:40 Pulse 85 04/09/22 15:40 Resp 16 04/09/22 15:40 BP 102/64 04/09/22 15:40 Pulse Ox 97 04/09/22 15:40 O2 Del Method 04/09/22 15:40 O2 Flow Rate 3 04/09/22 15:40 04/09/22 04/09/22 04/09/22 06:59 14:59 22:59 Intake Total 600 / 1490 480 / 480 Output Total 150 / 150 Balance 600 / 1490 330 / 330 Weight last 48 hrs Weight 82.917 kg Physical Exam Narrative: General: No acute distress, AO x3, tachypneic in conversation. HEENT: PERRLA, pupils bilaterally equal and reactive, pallors not present Chest: Normal vesicular breath sounds, no added sounds, equal good air entry bilaterally CVS: S1-S2 regular, no murmurs, no tachycardia, no gallops, no rubs Abdomen: Soft, nontender, no organomegaly, bowel sounds present Neuro: No focal deficits, no facial deformity, AO x3, deconditoning noted Data 04/09/22 03:58 04/09/22 06:10 Micro: Microbiology 04/04/22 15:17 Blood Culture - Final Blood NO GROWTH AFTER 5 DAYS 04/04/22 15:15 Blood Culture - Final Blood NO GROWTH AFTER 5 DAYS A&P Assessment and plan (1) Protein calorie malnutrition: (2) Muscular deconditioning: (3) Metastatic 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 Multiple bony mets in the thoracic, lumbosacral spine and ribs. As noted above -CEA within normal limits, CA 19 within normal limits, CA125 12 -Patient will need tissue diagnosis, likely from her bony mets metastases for definitive diagnosis of her malignancy. This could be best attempted with IR guided biopsy. I have discussed with the patient that we do not have a dedicated IR service, however we do perform some dedicated procedures here. We could discuss with the radiologist on Sunday (only V rad available over the weekend) to check if one of the lesions may be amenable to a percutaneous biopsy. Additional way to approach this might be through general surgery, however general surgery coverage is also not available this weekend therefore I am unable to know until Sunday if tissue diagnosis would be feasible here. We may be able to attempt a paracentesis or thoracentesis here with cytology, however this will likely be lower yield than attempting a bone biopsy. Patient had requested a transfer to a higher center to expedite her cancer work- up and initiation of treatment, I have called [facility], [facility], [facility], [facility] in [place], however there are no beds available for transfer at any of these places. Patient is agreeable to undergoing a bone biopsy tomorrow morning here if radiology is able to perform the procedure tomorrow. Additionally will also obtain paracentesis. Hyponatremia, sodium has dropped to 124, possibly malignancy related, possible SIADH, started on salt tablets, 1gm TID. Appears more tachypneic in conversation today, some Rales on exam bilaterally. Trial of Lasix 40 mg IV today. Placed on fluid restriction no more than 1200 cc/day. UTI -URine cx with Klebsiella pneumoniae -Continue Rocephin as suceptible isolate day 5 of 5 today. Will discontinue after last dose today. Generalized weakness, significant deconditioning likely from metasatic disease -CT head WNL -TSH high,low ft3 at 1.7, started levothyroxine 25mcg PT OT, patient requiring moderate assist. Disposition: Patient lives alone at home, does not have family members who can assist in fullterm care. It appears there might be some discord between her and her children. Patient had called police yesterday regarding a home situation, details are not known to me at this time, however it appears that patient had asked her son not to visit her. This morning her son was here to visit and se curity and police needed to be called. Given this it appears that patient may not be safe for discharge to home. We will work on appropriate disposition planning. Full code ? Attestations Medical Necessity Statement*: Iv lasix today, monitoring serum sodium, bone biopsy and paracentesis tomorrow, appropriate disposition planning Coding Level of Care Code Acute Production Technician for Chg Fwd Diagnoses Protein calorie malnutrition E46 Muscular deconditioning R29.898 Metastatic cancer to bone C79.51 Metastatic cancer to liver C78.7 Generalized weakness R53.1 Hyponatremia E87.1 Bacterial UTI N39.0; A49.9 Infectious encephalopathy G93.49; B99.9 Dehydration E86.0
[2022-04-09] MEDS: FUROsemide 10 mg/mL SDV 4mL 40 MG IVP (18:23)
[2022-04-09] MEDS: enoxaparin 40 mg/0.4 mL Syringe SUBCUT (18:23)
[2022-04-10] VITALS (9 sets, daily range): BP systolic 107–134; BP diastolic 70–91; PULSE 90–103; RESP 14–19; TEMP 36.4–36.8; O2SAT 90–96
--- NOTE | 2022-04-10 | US_ITS ---
WS: [id number] Abdomen ultrasound, limited. HISTORY: Evaluate liver for metastatic lesions and possible biopsy. Comparison: Prior CT 04/04/2022. Abnormal appearance of the liver. There are multiple slightly hypoechoic masses throughout the liver with hypoechoic rims. Largest mass measures approximately 4.0 x 4.5 cm. These lesions are nearly isoe choic to the adjacent liver. No significant increased vascularity. Small amount of ascites adjacent to the liver. The surface of the liver is nodular and cirrhotic in a ppearance. US/US abdomen limited [id number] IMPRESSION: Numerous metastatic lesions within the liver. These will be accessible for ultr asound-guided biopsy which is scheduled.
[2022-04-10 05:25] LABS: Basophils % 0.2 %; Eosinophils % 0.2 %; Hematocrit 31.2 % (37.0-47.0); Hemoglobin 10.5 g/dL (11.5-15.3); Lymphocytes # 0.5 10^3/uL (0.8-4.8); Lymphocytes % 5.7 %; Mean Corpuscular HGB Conc 33.7 g/dL (30.0-36.0); Mean Corpuscular Hemoglobin 30.2 pg (28.0-34.0); Mean Corpuscular Volume 89.7 fl (81-99); Mean Platelet Volume 9.3 fL (7.4-10.4); Monocytes # 0.6 10^3/uL (0.2-0.9); Monocytes % 6.7 %; Neutrophils # 8.04 10^3/uL (1.8-7.7); Neutrophils % 86.4 %; Nucleated Red Blood Cells % 0 %; Platelet Count 142 10^3/cmm (130-400); Red Blood Count 3.48 10^6/uL (4.1-5.3); Red Cell Distribution Width 14.8 % (12.1-15.1); White Blood Count 9.3 10^3/uL (4.0-10.0)
[2022-04-10 05:46] LABS: Alanine Aminotransferase 11 U/L (0-33); Albumin Level 2.5 g/dL (3.5-5.2); Alkaline Phosphatase 155 U/L (35-105); Anion Gap 16.2 (5-19); Aspartate Amino Transferase 34 U/L (0-32); Blood Urea Nitrogen 26 mg/dL (8-23); Calcium 10.3 mg/dL (8.5-10.5); Carbon Dioxide 22 mmol/L (22-29); Chloride 91 mmol/L (98-107); Globulin 2.5 g/dL (1.3-4.6); Glucose 97 mg/dL (65-115); Osmolality Calculated 265 mOsm/kg (285-295); Potassium 4.2 mmol/L (3.5-5.1); Sodium 125 mmol/L (136-145); Total Bilirubin 0.6 mg/dL (0.15-1.2)
[2022-04-10] MEDS: levothyroxine 25 mcg Tablet PO (06:01)
[2022-04-10 09:02] LABS: INR 1.14 (0.8-1.2)
[2022-04-10] MEDS: pantoprazole DR 40 mg Tablet PO (09:34)
[2022-04-10] MEDS: sodium chloride 1 gm Tablet PO ×3 (09:34→20:00)
--- NOTE | 2022-04-10 09:54 | PC.NURSE ---
Spoke with Bobby pelayo regarding US biopsy scheduled tomorrow 04/11 @ 0800. Patient to be NPO after midnight and Dr Bishop wants nurse to hold 1730 dose of Lovenox. Nurse verbalized understanding.
[2022-04-10 11:34] LABS: Cyto Order Verification No Order
[2022-04-10 11:53] LABS: Albumin Peritoneal Fluid 1.5 g/dL; Amylase Peritoneal Fluid 12 U/L (88-109); Total Protein Peritoneal Fluid 2.7 g/dL
[2022-04-10 12:13] LABS: Polynuclear # Cells, Perit 0.194 10^3/uL
[2022-04-10 12:40] LABS: Appearance, Peritoneal Fluid Clear (Clear); Color, Peritoneal Fluid Pale Yellow (Pale Yellow)
[2022-04-10 12:41] LABS: RBC Pertioneal Fluid 1 10^3/uL; WBC Peritoneal Fluid 1254 /uL
[2022-04-10 12:45] LABS: Pathology Referral Yes
[2022-04-10] MEDS: cefTRIAXone 1,000 MG in sodium chloride 0.9% (plus) 50 ML 100 MG IV (14:52)
--- NOTE | 2022-04-10 16:08 | US_ITS ---
WS: [id number] ULTRASOUND-GUIDED THERAPEUTIC AND DIAGNOSTIC PARACENTESIS Procedure, risks, and complications have been explained to the patient. Consent is obtained. Utilizing aseptic technique and 1% buffered lidocaine, a small dermatome was made through which a 5 F rench Yueh catheter was inserted. Approximately 1300 ml of yellow peritoneal fluid was obtained witho ut difficulty. No complications encountered. US/US paracentesis abd w [id number] IMPRESSION: Uncomplicated paracentesis yielding 1300 ml of peritoneal fluid. Pleural fluid specimen has been collected as requested.
[2022-04-10] MEDS: enoxaparin 40 mg/0.4 mL Syringe SUBCUT (17:30)
--- NOTE | 2022-04-10 19:36 | P.PN_ITS ---
Subjective Subjective: s/p paracentesis today, awaiting labs and cytology. Us liver biopsy tomorrow. Feels slightly better with regards to pain today Medications: Reviewed: Yes Vitals/I&O/Wt Last Vital Signs Temp 97.6 F 04/10/22 16:00 Pulse 100 04/10/22 16:00 Resp 15 04/10/22 16:00 BP 108/76 04/10/22 16:00 Pulse Ox 93 04/10/22 16:00 O2 Del Method 04/10/22 16:00 O2 Flow Rate 2 04/10/22 11:39 04/10/22 04/10/22 04/10/22 06:59 14:59 22:59 Intake Total 0 / 770 290 / 290 Balance 0 / 420 290 / 290 Physical Exam Narrative: General: No acute distress, AO x3 HEENT: PERRLA, pupils bilaterally equal and reactive, pallors not present Chest: Normal vesicular breath sounds, no added sounds, equal good air entry bilaterally CVS: S1-S2 regular, no murmurs, no tachycardia, no gallops, no rubs Abdomen: Soft, nontender, no organomegaly, bowel sounds present Neuro: No focal deficits, no facial deformity, AO x3, deconditoning noted Data 04/10/22 04:54 04/10/22 04:54 Micro: Microbiology 04/04/22 15:17 Blood Culture - Final Blood NO GROWTH AFTER 5 DAYS 04/04/22 15:15 Blood Culture - Final Blood NO GROWTH AFTER 5 DAYS A&P Assessment and plan (1) Protein calorie malnutrition: (2) Muscular deconditioning: (3) Metastatic 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 Multiple bony mets in the thoracic, lumbosacral spine and ribs. As noted above -CEA within normal limits, CA 19 within normal limits, CA125 12 -Patient will need tissue diagnosis, likely from her bony mets metastases for definitive diagnosis of her malignancy. This could be best attempted with IR guided biopsy. I have discussed with the patient that we do not have a dedicated IR service, however we do perform some dedicated procedures here. We could discuss with the radiologist on Sunday (only V rad available over the weekend) to check if one of the lesions may be amenable to a percutaneous biopsy. Additional way to approach this might be through general surgery, [facility] general surgery coverage is also not available this weekend therefore I am unable to know until Sunday if tissue diagnosis would be feasible here. We may be able to attempt a paracentesis or thoracentesis here with cytology, however this will likely be lower yield than attempting a bone biopsy. Patient had requested a transfer to a higher center to expedite her cancer work- up and initiation of treatment, I have called [facility], [facility], [facility], [facility] in [place], however there are no beds available for transfer at any of these places. Discussed case with outpatient oncology- recommended to undergo liver biopsy instead of bone biopsy for higher yield. Planned procedure tomorrow Hyponatremia, sodium has dropped to 124, possibly malignancy related, possible SIADH, started on salt tablets, 1gm TID. Appears more tachypneic in conversation today, some Rales on exam bilaterally. Trial of Lasix 40 mg IV today. Placed on fluid restriction no more than 1200 cc/day. UTI -URine cx with Klebsiella pneumoniae -Continue Rocephin as suceptible isolate day 5 of 5 today. Will discontinue after last dose today. Generalized weakness, significant deconditioning likely from metasatic disease -CT head WNL -TSH high,low ft3 at 1.7, started levothyroxine 25mcg PT OT, patient requiring moderate assist. Disposition: Patient lives alone at home, does not have family members who can assist in fullterm care. It appears there might be some discord between her and her children. Patient had called police yesterday regarding a home situation, details are not known to me at this time, however it appears that patient had asked her son not to visit her. This morning her son was here to visit and secu rachel and police needed to be called. Given this it appears that patient may not be safe for discharge to home. We will work on appropriate disposition planning. Full code ? Attestations Medical Necessity Statement*: planned liver biopsy tomorrow , appropriate disposition planning Coding Level of Care Code Acute Corporate Human Resources Manager for Justin [employer] Diagnoses Protein calorie malnutrition E46 Muscular deconditioning R29.898 Metastatic cancer to bone C79.51 Metastatic cancer to liver C78.7 Generalized weakness R53.1 Hyponatremia E87.1 Bacterial UTI N39.0; A49.9 Infectious encephalopathy G93.49; B99.9 Dehydration E86.0
[2022-04-11] VITALS (7 sets, daily range): BP systolic 101–117; BP diastolic 67–79; PULSE 94–107; RESP 14–18; TEMP 36.4–37.2; O2SAT 90–98
[2022-04-11] MEDS: levothyroxine 25 mcg Tablet PO (05:41)
[2022-04-11] MEDS: sodium chloride 1 gm Tablet PO ×3 (09:12→20:47)
[2022-04-11] MEDS: pantoprazole DR 40 mg Tablet PO (09:12)
[2022-04-11] MEDS: cefTRIAXone 1,000 MG in sodium chloride 0.9% (plus) 50 ML 100 MG IV (14:47)
--- NOTE | 2022-04-11 18:07 | P.PN_ITS ---
Subjective Subjective: Patient's liver biopsy was unfortunately canceled this morning per radiology because she received a prophylactic dose of Lovenox last evening. She has no new interim complaints. States that her abdominal pain is actually better since her paracentesis. 1300 cc was removed. No significant concerns for SBP based on peritoneal fluid analysis. Medications: Reviewed: Yes Vitals/I&O/Wt Last Vital Signs Temp 97.9 F 04/11/22 16:00 Pulse 107 H 04/11/22 16:00 Resp 18 04/11/22 16:00 BP 103/71 04/11/22 16:00 Pulse Ox 91 04/11/22 16:00 O2 Del Method 04/11/22 16:00 O2 Flow Rate 2 04/11/22 08:00 04/11/22 04/11/22 04/11/22 06:59 14:59 22:59 Intake Total 120 / 120 50 / 170 Balance 120 / 120 50 / 170 Physical Exam Narrative: General: No acute distress, AO x3 HEENT: PERRLA, pupils bilaterally equal and reactive, pallors not present Chest: Normal vesicular breath sounds, no added sounds, equal good air entry bilaterally CVS: S1-S2 regular, no murmurs, no tachycardia, no gallops, no rubs Abdomen: Soft, nontender, no organomegaly, bowel sounds present Neuro: No focal deficits, no facial deformity, AO x3, deconditoning noted Data 04/10/22 04:54 04/10/22 04:54 A&P Assessment and plan (1) Protein calorie malnutrition: (2) Muscular deconditioning: (3) Metastatic 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 Multiple bony mets in the thoracic, lumbosacral spine and ribs. As noted above -CEA within normal limits, CA 19 within normal limits, CA125 12 -Patient will need tissue diagnosis, likely from her bony mets metastases for definitive diagnosis of her malignancy. This could be best attempted with IR guided biopsy. I have discussed with the patient that we do not have a dedicated IR service, however we do perform some dedicated procedures here. We could discuss with the radiologist on Sunday (only V rad available over the weekend) to check if one of the lesions may be amenable to a percutaneous biopsy. Additional way to approach this might be through general surgery, however general surgery coverage is also not available this weekend therefore I am unable to know until Sunday if tissue diagnosis would be feasible here. We may be able to attempt a paracentesis or thoracentesis here with cytology, however this will likely be lower yield than attempting a bone biopsy. Patient had requested a transfer to a higher center to expedite her cancer work- up and initiation of treatment, I have called [facility], [facility], [facility], [facility] in [place], however there are no beds available for transfer at any of these places. Discussed case with outpatient oncology- recommended to undergo liver biopsy instead of bone biopsy for higher yield. Planned procedure tomorrow Hyponatremia, sodium has dropped to 124, possibly malignancy related, possible SIADH, started on salt tablets, 1gm TID. Appears more tachypneic in conversation today, some Rales on exam bilaterally. Trial of Lasix 40 mg IV today. Placed on fluid restriction no more than 1200 cc/day. UTI -URine cx with Klebsiella pneumoniae -Continue Rocephin as suceptible isolate day 5 of 5 today. Will discontinue after last dose today. Generalized weakness, significant deconditioning likely from metasatic disease -CT head WNL -TSH high,low ft3 at 1.7, started levothyroxine 25mcg PT OT, patient requiring moderate assist. Disposition: Patient lives alone at home, does not have family members who can assist in fullterm care. It appears there might be some discord between her and her children. Patient had called police yesterday regarding a home situation, details are not known to me at this time, however it appears that patient had asked her son not to visit her. This morning her son was here to visit and security and police needed to be called. Given this it appears that patient may not be safe for discharge to home. We will work on appropriate disposition planning. Full code Plan for today: Awaiting liver biopsy tomorrow morning, appropriate disposition planning ? Attestations Medical Necessity Statement*: Awaiting liver biopsy, disposition planning Coding Level of Care Code Acute Child Psychologist for Chg Fwd Diagnoses Protein calorie malnutrition E46 Muscular deconditioning R29.898 Metastatic cancer to bone C79.51 Metastatic cancer to liver C78.7 Generalized weakness R53.1 Hyponatremia E87.1 Bacterial UTI N39.0; A49.9 Infectious encephalopathy G93.49; B99.9 Dehydration E86.0
[2022-04-11] MEDS: FUROsemide 10 mg/mL SDV 2mL 20 MG IVP (20:40)
[2022-04-12] VITALS (16 sets, daily range): BP systolic 90–140; BP diastolic 65–89; PULSE 85–98; RESP 16–21; TEMP 36.2–36.8; O2SAT 90–100
--- NOTE | 2022-04-12 02:36 | PC.NURSE ---
TEMPERATURE CONTROL INSPECTOR gave patient a bath, cleaned up room from trash and dirty linens and changed patients bed linens while patient used the bedside commode. TEMPERATURE CONTROL INSPECTOR also brushed patients hair and put up in a hair tie.
[2022-04-12 06:00] LABS: Basophils % 0.3 %; Eosinophils % 0.3 %; Hematocrit 33.5 % (37.0-47.0); Hemoglobin 10.5 g/dL (11.5-15.3); Lymphocytes # 0.5 10^3/uL (0.8-4.8); Mean Corpuscular HGB Conc 31.3 g/dL (30.0-36.0); Mean Corpuscular Hemoglobin 30.3 pg (28.0-34.0); Mean Corpuscular Volume 96.5 fl (81-99); Mean Platelet Volume 9.7 fL (7.4-10.4); Monocytes # 0.6 10^3/uL (0.2-0.9); Monocytes % 6.5 %; Neutrophils # 8.22 10^3/uL (1.8-7.7); Neutrophils % 87.3 %; Nucleated Red Blood Cells % 0 %; Platelet Count 143 10^3/cmm (130-400); Red Blood Count 3.47 10^6/uL (4.1-5.3); Red Cell Distribution Width 15.3 % (12.1-15.1); White Blood Count 9.4 10^3/uL (4.0-10.0)
[2022-04-12 06:22] LABS: Alanine Aminotransferase 10 U/L (0-33); Albumin Level 2.3 g/dL (3.5-5.2); Alkaline Phosphatase 153 U/L (35-105); Anion Gap 13.3 (5-19); Aspartate Amino Transferase 30 U/L (0-32); Blood Urea Nitrogen 33 mg/dL (8-23); Calcium 10.8 mg/dL (8.5-10.5); Carbon Dioxide 24 mmol/L (22-29); Chloride 100 mmol/L (98-107); Globulin 2.7 g/dL (1.3-4.6); Glucose 122 mg/dL (65-115); Osmolality Calculated 285 mOsm/kg (285-295); Potassium 4.3 mmol/L (3.5-5.1); Sodium 133 mmol/L (136-145); Total Bilirubin 0.5 mg/dL (0.15-1.2)
[2022-04-12] MEDS: levothyroxine 25 mcg Tablet PO (06:22)
[2022-04-12] MEDS: sodium chloride 1 gm Tablet PO ×2 (08:48→17:56)
[2022-04-12] MEDS: pantoprazole DR 40 mg Tablet PO (08:48)
--- NOTE | 2022-04-12 09:30 | US_ITS ---
WS: [id number] ULTRASOUND GUIDED BIOPSY LIVER LESIONS. HISTORY: metastatic cancer, unknown primary Procedure, risks, and complications are explained to the patient. Consent was obtained. Skin is clean sed with ChloraPrep and anesthetized with 1% buffered lidocaine. Prior imaging studies are reviewed. Under ultrasound guidance hypoechoic liver lesion in the LEFT lobe of liver is targeted for biopsy. 4 core biopsies with an 18-gauge needle are obtained with no complication. Patient will be observed fo r 2 hours postprocedure to exclude bleeding or post procedure complications. US/US biopsy liver [id number] IMPRESSION: Uncomplicated liver biopsy hypoechoic mass in the LEFT lobe. Final pathology re sults are pending.
[2022-04-12] MEDS: sodium chloride 0.9% 1,000 ML 30 ML IV (09:55)
[2022-04-12] MEDS: lidocaine 1% INJ 20 mL 10 ML XX (10:05)
--- NOTE | 2022-04-12 12:28 | PM.PN ---
Subjective Subjective: Na improved at 133 today. Underwent liver biopsy this morning. No new complaints. Medications: Reviewed: Yes Vitals/I&O/Wt Last Vital Signs Temp 97.2 F L 04/12/22 10:28 Pulse 96 04/12/22 12:13 Resp 18 04/12/22 12:13 BP 124/87 04/12/22 12:13 Pulse Ox 94 04/12/22 12:13 O2 Del Method 04/12/22 12:13 O2 Flow Rate 3 04/12/22 10:13 FiO2 3 04/12/22 11:32 04/11/22 04/12/22 04/12/22 22:59 06:59 14:59 Intake Total 530 / 650 200 / 200 Balance 530 / 650 200 / 200 Physical Exam Narrative: General: No acute distress, AO x3 HEENT: PERRLA, pupils bilaterally equal and reactive, pallors not present Chest: Normal vesicular breath sounds, no added sounds, equal good air entry bilaterally CVS: S1-S2 regular, no murmurs, no tachycardia, no gallops, no rubs Abdomen: Soft, nontender, no organomegaly, bowel sounds present Neuro: No focal deficits, no facial deformity, AO x3, deconditoning noted Data 04/12/22 05:21 04/12/22 05:21 A&P Assessment and plan (1) Protein calorie malnutrition: (2) Muscular deconditioning: (3) Metastatic 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 Multiple bony mets in the thoracic, lumbosacral spine and ribs. As noted above -CEA within normal limits, CA 19 within normal limits, CA125 12 -Patient will need tissue diagnosis, she is now status post liver biopsy ultrasound-guided this morning. Results will probably take 5 to 7 days to come back. She has additionally undergone paracentesis with removal of 800 cc of fluid. Cytology with acute and chronic inflammation without malignancy identified. UTI -URine cx with Klebsiella pneumoniae -discontinue rocephin (04/05-04/12) Generalized weakness, significant deconditioning likely from metasatic disease -CT head WNL -TSH high,low ft3 at 1.7, started levothyroxine 25mcg PT OT, patient requiring moderate assist. Disposition: Patient lives alone at home, does not have family members who can assist in fullterm care. It appears there might be some discord between her and her children. Patient had called police during this admission due to conflict at home. Given this it appears that patient may not be safe for discharge to home. We will work on appropriate disposition planning. Full code ? Attestations Medical Necessity Statement*: awaiting appropriate disposition planning Coding Level of Care Code Acute Property Investor for Chg Fwd Diagnoses Protein calorie malnutrition E46 Muscular deconditioning R29.898 Metastatic cancer to bone C79.51 Metastatic cancer to liver C78.7 Generalized weakness R53.1 Hyponatremia E87.1 Bacterial UTI N39.0; A49.9 Infectious encephalopathy G93.49; B99.9 Dehydration E86.0
[2022-04-12] MEDS: FUROsemide 10 mg/mL SDV 2mL 20 MG IVP (14:44)
--- NOTE | 2022-04-12 15:30 | PC.OT ---
OT TREATMENT HELD TODAY DUE TO PERFORMANCE OF LIVER BIOPSY TODAY
[2022-04-12] MEDS: enoxaparin 40 mg/0.4 mL Syringe SUBCUT (17:55)
[2022-04-13] VITALS (10 sets, daily range): BP systolic 93–115; BP diastolic 56–78; PULSE 91–108; RESP 15–20; TEMP 36.3–37.3; O2SAT 89–98
[2022-04-13] MEDS: levothyroxine 25 mcg Tablet PO (05:40)
[2022-04-13] MEDS: pantoprazole DR 40 mg Tablet PO (08:09)
[2022-04-13] MEDS: sodium chloride 1 gm Tablet PO ×2 (08:09→18:06)
--- NOTE | 2022-04-13 15:07 | PM.PN ---
Subjective Subjective: Symptomatically feeling better today. Noted to be slightly tachycardic with heart ranged between 100-1 10. Afebrile. Hemodynamically stable. Preliminary liver biopsy is metastatic adenocarcinoma. She has had increased swelling in bilateral lower extremities over the last 2 days. Medications: Reviewed: Yes Vitals/I&O/Wt Last Vital Signs Temp 97.7 F 04/13/22 12:00 Pulse 101 H 04/13/22 12:00 Resp 16 04/13/22 12:00 BP 104/75 04/13/22 12:00 Pulse Ox 91 04/13/22 11:57 O2 Del Method 04/13/22 11:57 O2 Flow Rate 3 04/13/22 11:57 FiO2 3 04/12/22 11:32 04/13/22 04/13/22 04/13/22 06:59 14:59 22:59 Intake Total 480 / 480 Balance 480 / 480 Physical Exam Narrative: General: No acute distress, AO x3 HEENT: PERRLA, pupils bilaterally equal and reactive, pallors not present Chest: Normal vesicular breath sounds, no added sounds, equal good air entry bilaterally CVS: S1-S2 regular, no murmurs, no tachycardia, no gallops, no rubs Abdomen: Soft, nontender, no organomegaly, bowel sounds present Neuro: No focal deficits, no facial deformity, AO x3, deconditoning noted Data 04/12/22 05:21 04/12/22 05:21 A&P Assessment and plan (1) Protein calorie malnutrition: (2) Muscular deconditioning: (3) Metastatic 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 Multiple bony mets in the thoracic, lumbosacral spine and ribs. As noted above -CEA within normal limits, CA 19 within normal limits, CA125 12 -Status post liver biopsy on 04/12/2022. Preliminary shows metastatic adenocarcinoma. Hyponatremia: Sodium is improved to 133 on last check. Currently on sodium chloride tablets 1 tab p.o. twice daily. Recheck sodium with a.m. labs. UTI -URine cx with Klebsiella pneumoniae -Status post rocephin (04/05-04/12) Generalized weakness, significant deconditioning likely from metasatic disease -CT head WNL -TSH high,low ft3 at 1.7, started levothyroxine 25mcg PT OT, patient requiring moderate assist. Disposition: Patient lives alone at home, does not have family members who can assist in fullterm care. It appears there might be some discord between her and her children and other family members. Patient had called police during this admission due to conflict at home. Given this it appears that patient may not be safe for discharge to home. We are working on on appropriate disposition planning. Increasing lower extremity edema. We will check lower extremity Doppler to evaluate for possible DVT. Full code ? Attestations Medical Necessity Statement*: clinically improving, pending disposiiton planning Coding Level of Care Code Acute Change Management Coordinator for Chg Fwd Diagnoses Protein calorie malnutrition E46 Muscular deconditioning R29.898 Metastatic cancer to bone C79.51 Metastatic cancer to liver C78.7 Generalized weakness R53.1 Hyponatremia E87.1 Bacterial UTI N39.0; A49.9 Infectious encephalopathy G93.49; B99.9 Dehydration E86.0
--- NOTE | 2022-04-13 15:08 | USCV_ITS ---
IvethKarriRenetta Age: 76 Gender: F : 1945 Exam Date: 04/13/2022 15:31 Ordering Phys: Rahel Henderson MD Technologist: Wesley Calderon Exam Location: [facility] [place]_ Indication: ? dvt HISTORY: Lower extremity edema. PROCEDURES: The venous duplex Doppler examination of both lower extremities was performed in the standard fashion. The following venous structures were evaluated: common femoral vein, profunda vein, proximal portion of the greater saphenous vein, superficial femoral vein, and the popliteal vein. In addition, the posterior tibial and peroneal trunk were evaluated. FINDINGS: Normal 2-D Doppler and augmentation and compressibility throughout the lower extremity venous structures. Additional imaging through the proximal calf veins also reveals no thrombus. Limited evaluation of the greater saphenous vein is patent with no thrombus.. CONCLUSIONS No evidence of right lower extremity DVT. No evidence of left lower extremity DVT. Vicente Moran MD (Electronically Signed) Final Date: 13 April 2022 17:04 S
[2022-04-13] MEDS: FUROsemide 20 mg Tablet PO (15:24)
[2022-04-13] MEDS: enoxaparin 40 mg/0.4 mL Syringe SUBCUT (18:05)
[2022-04-14] VITALS: BP 114/70; PULSE 98; RESP 17; TEMP 36.3; O2SAT 93
[2022-04-14 04:00] VITALS: BP 101/67; PULSE 95; RESP 16; TEMP 36.9; O2SAT 92
[2022-04-14] MEDS: levothyroxine 25 mcg Tablet PO (05:31)
[2022-04-14 05:34] LABS: Basophils % 0.2 %; Eosinophils # 0.1 10^3/uL (0.0-0.8); Eosinophils % 0.7 %; Hematocrit 31.8 % (37.0-47.0); Hemoglobin 10.3 g/dL (11.5-15.3); Lymphocytes # 0.6 10^3/uL (0.8-4.8); Lymphocytes % 6.3 %; Mean Corpuscular HGB Conc 32.4 g/dL (30.0-36.0); Mean Corpuscular Hemoglobin 29.9 pg (28.0-34.0); Mean Corpuscular Volume 92.4 fl (81-99); Mean Platelet Volume 9.6 fL (7.4-10.4); Monocytes # 0.6 10^3/uL (0.2-0.9); Monocytes % 6.3 %; Neutrophils # 7.75 10^3/uL (1.8-7.7); Neutrophils % 85.7 %; Nucleated Red Blood Cells % 0 %; Platelet Count 146 10^3/cmm (130-400); Red Blood Count 3.44 10^6/uL (4.1-5.3); Red Cell Distribution Width 15.2 % (12.1-15.1)
[2022-04-14 05:54] LABS: Alanine Aminotransferase 10 U/L (0-33); Albumin Level 2.4 g/dL (3.5-5.2); Alkaline Phosphatase 145 U/L (35-105); Anion Gap 12.1 (5-19); Aspartate Amino Transferase 27 U/L (0-32); Blood Urea Nitrogen 42 mg/dL (8-23); Calcium 11.2 mg/dL (8.5-10.5); Carbon Dioxide 26 mmol/L (22-29); Chloride 99 mmol/L (98-107); Globulin 2.5 g/dL (1.3-4.6); Glucose 109 mg/dL (65-115); Osmolality Calculated 287 mOsm/kg (285-295); Potassium 4.1 mmol/L (3.5-5.1); Sodium 133 mmol/L (136-145); Total Bilirubin 0.5 mg/dL (0.15-1.2); Total Protein 4.9 g/dL (6.6-8.7)
[2022-04-14 08:00] VITALS: BP 98/60; PULSE 100; PULSE 84; RESP 16; TEMP 36.7; O2SAT 93; O2SAT 96
[2022-04-14] MEDS: sodium chloride 1 gm Tablet PO (08:52)
[2022-04-14] MEDS: pantoprazole DR 40 mg Tablet PO (08:52)
[2022-04-14] MEDS: FUROsemide 20 mg Tablet PO (08:52)
[2022-04-14 11:07] VITALS: PULSE 105; RESP 19; TEMP 36.8; O2SAT 90
[2022-04-14 12:00] VITALS: BP 98/60; PULSE 105; RESP 19; TEMP 36.8
[2022-04-14 12:31] LABS: SARS Covid-2 Antigen negative (Negative)
--- NOTE | 2022-04-14 13:26 | PM.DCS ---
Discharge Providers Date of Admission: 04/04/22 17:32 Date of Discharge: April 14, 2022 Attending Provider at Admission: Matthew Luciano MD Attending Provider at Discharge: Rahel Henderson MD Primary Care Provider: Fco Meyer MD Diagnoses at Discharge Discharge Diagnosis (1) Protein calorie malnutrition: Status: Acute (2) Muscular deconditioning: Status: Acute (3) Metastatic cancer to bone: Status: Acute (4) Metastatic cancer to liver: Status: Acute (5) Generalized weakness: Status: Acute (6) Hyponatremia: Status: Acute (7) Bacterial UTI: Status: Acute (8) Infectious encephalopathy: Status: Acute (9) Dehydration: Status: Acute Reason for Visit Reason for Visit: Weakness Brief History: Renetta Lazaro is a 76 year old female who presents to [facility] due to generalized weakness, fatigue, malaise, confusion, dysuria.? Patient presents from EMS with family as the did not hear from her the last few days, when he checked up on her, they could not get out of the chair, tapped in the door, she was increasingly confused.? She is normally independent, self ambulatory.? Hospital Course Hospital Course After admission to the hospital and further evaluation she was found to have UTI with Klebsiella pneumonia, susceptible to ceftriaxone for which she received 7 days of antibiotics. Because of concern for complicated UTI, she underwent CT of the abdomen and pelvis to evaluate for any obstruction. While the study was negative for this, it showed diffuse metastases involving her liver, and multiple metastases of the bone involving the sacrum, T9-T10 vertebral bodies, subcentimeter pulmonary nodules thought to be metastatic in nature and a small right pleural effusion. Involvement at T5 and T9 encroaches into the thoracic cord and foramina, however no obvious signs of cord compression were noted. There was also metastatic disease throughout the sternum. She underwent ultrasound-guided liver biopsy, preliminary from which is with metastatic adenocarcinoma. She has been provided with a referral to the hematology oncology clinic as outpatient. Other significant hospital issues included hyponatremia with sodium at a low of 124. Possible that this is SIADH related to malignancy. She was started on p.o. salt tablets and currently maintained on sodium chloride 1 g p.o. twice daily. Recommended to recheck sodium on Sunday. At the time of discharge sodium has improved to 133. Patient did have signs of fluid overload for which she received trial of Lasix and was placed on fluid restriction. She underwent paracentesis with removal of 800 cc fluid and has been started on Lasix 20 mg p.o. daily after which patient is significantly improved. She was evaluated by physical therapy due to deconditioning from her metastatic disease and generalized weakness. She is moderate assist per PT. She was also noted to have high free T3 and low TSH consistent with a diagnosis of hypothyroidism for which she has been started on levothyroxine 25 mcg daily. Patient lives alone at home and does not have any family members who can assist in her care. In her current deconditioned state she is thought to benefit from skilled therapy especially to gain some independence for further cancer evaluation and possible treatment down the line. Physical Exam Narrative: General: No acute distress, AO x3 HEENT: PERRLA, pupils bilaterally equal and reactive, pallors not present Chest: Normal vesicular breath sounds, no added sounds, equal good air entry bilaterally CVS: S1-S2 regular, no murmurs, no tachycardia, no gallops, no rubs Abdomen: Soft, nontender, no organomegaly, bowel sounds present Neuro: No focal deficits, no facial deformity, AO x3, power 5/5 in all limbs Extremities: Bilateral lower extremity edema, significantly improved over previous exams. Discharge Data Studies Completed and Pending Completed Studies During Hospitalization Category Date Time Status CT abdomen pelvis wo con [id number] Stat Cat Scan 04/04/22 15:[address] head wo con* [id number] Stat Cat Scan 04/04/22 15:54 Completed CTA chest [CT angio chest PE protcl [id number]] Routine Cat Scan 04/05/22 08:32 Completed XR chest 1V portable [id number] Stat Exams 04/04/22 13:07 [place] [id number] Routine Ultrasound 04/13/22 15:08 Completed US abdomen limited [id number] Routine Ultrasound 04/10/22 Completed US biopsy liver [id number] Routine Ultrasound 04/12/22 09:30 [place] w [id number] Routine Ultrasound 04/10/22 16:08 Completed Radiology Impressions Chest X-Ray 04/04/22 13:07 IMPRESSION: No acute findings. Abdomen/Pelvis CT 04/04/22 15:37 IMPRESSION: 1. Hepatomegaly and hepatic metastatic disease. 2. 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 3. Tumor mass is seen in the T9 and T10 vertebral bodies 4. Diffuse abdominal and pelvic peritoneal ascites. 5. Negative for urinary tract stones or urinary outflow tract obstruction. 6.Status post hysterectomy. 7. Right lower lobe small pleural effusion Head CT 04/04/22 15:54 IMPRESSION: No acute intracranial abnormality. Chest CTA 04/05/22 08:32 IMPRESSION: 1. No pulmonary embolism. 2. Ectatic thoracic aorta. 3. There are a few scattered subcentimeter pulmonary nodules which are probably metastatic sites or postinflammatory. 4. Small RIGHT pleural effusion with minimal bibasilar atelectasis. 5. Metastatic lytic lesions throughout the thoracic spine and ribs. Most significant involvement of T5 and T9 with encroachment into the thoracic cord and foramina. No obvious cord compression at this time. 6. Extensive metastatic disease throughout the sternum. 7. Known hepatic metastatic disease. 8. Ascites. Notified Matthew Luciano MD at 04/05/2022 9:40 AM. Abdomen Ultrasound 04/10/22 00:00 IMPRESSION: Numerous metastatic lesions within the liver. These will be accessible for ultrasound-guided biopsy which is scheduled. Paracentesis Ultrasound 04/10/22 16:08 IMPRESSION: Uncomplicated paracentesis yielding 1300 ml of peritoneal fluid. Pleural fluid specimen has been collected as requested. Liver Biopsy Ultrasound 04/12/22 09:30 IMPRESSION: Uncomplicated liver biopsy hypoechoic mass in the LEFT lobe. Final pathology results are pending. 04/13/2022: Lower extremity venous Duplex: No evidence of DVT bilaterally. Laboratory Results WBC 9.0 10^3/uL (4.0-10.0) 04/14/22 04:50 RBC 3.44 10^6/uL (4.1-5.3) L 04/14/22 04:50 Hgb 10.3 g/dL (11.5-15.3) L 04/14/22 04:50 Hct 31.8 % (37.0-47.0) L 04/14/22 04:50 MCV 92.4 fl (81-99) 04/14/22 04:50 MCH 29.9 pg (28.0-34.0) 04/14/22 04:50 MCHC 32.4 g/dL (30.0-36.0) 04/14/22 04:50 RDW 15.2 % (12.1-15.1) H 04/14/22 04:50 Plt Count 146 10^3/cmm (130-400) 04/14/22 04:50 MPV 9.6 fL (7.4-10.4) 04/14/22 04:50 Neut % (Auto) 85.7 % 04/14/22 04:50 Lymph % (Auto) 6.3 % 04/14/22 04:50 [place] % (Auto) 6.3 % 04/14/22 04:50 Eos % (Auto) 0.7 % 04/14/22 04:50 Baso % (Auto) 0.2 % 04/14/22 04:50 Neut # (Auto) 7.75 10^3/uL (1.8-7.7) H 04/14/22 04:50 Lymph # (Auto) 0.6 10^3/uL (0.8-4.8) L 04/14/22 04:50 [place] # (Auto) 0.6 10^3/uL (0.2-0.9) 04/14/22 04:50 Eos # (Auto) 0.1 10^3/uL (0.0-0.8) 04/14/22 04:50 Baso # (Auto) 0.0 10^3/uL (0.0-0.1) 04/14/22 04:50 Nucleated RBC % (auto) 0 % 04/14/22 04:50 Nucleated RBCs # 0.0 /100WBC 04/14/22 04:50 PT 15.00 SECONDS (12.1-14.9) H 04/10/22 08:43 INR 1.14 (0.8-1.2) 04/10/22 08:43 Sodium 133 mmol/L (136-145) L 04/14/22 04:50 Potassium 4.1 mmol/L (3.5-5.1) 04/14/22 04:50 Chloride 99 mmol/L (98-107) 04/14/22 04:50 Carbon Dioxide 26 mmol/L (22-29) 04/14/22 04:50 Anion Gap 12.1 (5-19) 04/14/22 04:50 BUN 42 mg/dL (8-23) H 04/14/22 04:50 Creatinine 0.8 mg/dL (0.5-0.9) 04/14/22 04:50 GFR Calculation Not Reportable 04/14/22 04:50 Glucose 109 mg/dL (65-115) 04/14/22 04:50 Estimat Average Glucose 88 04/04/22 16:45 Hemoglobin A1c 4.7 % (4.0-6.0) 04/04/22 16:45 Calculated Osmolality 287 mOsm/kg (285-295) 04/14/22 04:50 Lactic Acid 2.1 mmol/L (0.5-2.2) 04/04/22 16:45 Lactic Acid (Sepsis) 1.8 mmol/L (0.5-2.2) 04/04/22 20:00 Calcium 11.2 mg/dL (8.5-10.5) H 04/14/22 04:50 Phosphorus 2.6 mg/dL (2.5-4.5) 04/05/22 05:07 Magnesium 1.8 mg/dL (1.7-2.3) 04/09/22 03:58 Total Bilirubin 0.5 mg/dL (0.15-1.2) 04/14/22 04:50 AST 27 U/L (0-32) 04/14/22 04:50 ALT 10 U/L (0-33) 04/14/22 04:50 Alkaline Phosphatase 145 U/L (35-105) H 04/14/22 04:50 Troponin T Baseline 39 ng/L (0-10) H 04/04/22 16:45 Troponin T 120 Minute 42.54 ng/L (0-10) H 04/04/22 18:13 Delta Troponin T 3.54 ABS# (0-10) 04/04/22 18:13 Troponin T Hi Sens 6Hr 41.67 ng/L (0-10) H 04/04/22 23:23 Troponin T Hi Sens 6Hr Delta 2.67 ng/L (0-12) 04/04/22 23:23 C-Reactive Protein 85.2 mg/L (0.0-4.9) H 04/04/22 13:36 Total Protein 4.9 g/dL (6.6-8.7) L 04/14/22 04:50 Albumin 2.4 g/dL (3.5-5.2) L 04/14/22 04:50 Globulin 2.5 g/dL (1.3-4.6) 04/14/22 04:50 [id number] 5.47 mg/L (< OR = 2.51) H 04/04/22 13:36 Triglycerides 108 mg/dL (0-150) 04/04/22 16:45 Cholesterol 129 mg/dL (0-200) 04/04/22 16:45 LDL Cholesterol, Calc 56 mg/dL (50-129) 04/04/22 16:45 HDL Cholesterol 51 mg/dL (60-100) L 04/04/22 16:45 LDL/HDL Ratio 1.10 RATIO (0.00-3.22) 04/04/22 16:45 Cholesterol/HDL Ratio 2.53 mg/dL (0.0-4.40) 04/04/22 16:45 Carcinoembryonic Ag 0.6 ng/mL (0.0-4.7) 04/05/22 05:07 CA 19-9 Antigen 18.05 U/mL (0-35) 04/05/22 05:07 CA 125 Antigen 229.6 U/mL (0-35) H 04/05/22 05:07 Procalcitonin 0.61 ng/mL (0-0.5) H 04/04/22 13:36 TSH 7.05 uIU/mL (0.27-4.20) H 04/04/22 13:36 Free T4 1.12 ng/dL (0.82-1.77) 04/04/22 16:45 Free T3 1.7 PG/ML (2.0-4.4) L 04/04/22 16:45 Urine Color Yellow (Yellow) 04/04/22 13:55 Urine Appearance Cloudy (CLEAR) A 04/04/22 13:55 Urine pH 5 (5-7) 04/04/22 13:55 Ur Specific [place] 1.025 (1.005-1.030) 04/04/22 13:55 Urine Protein 1+ (Negative) H 04/04/22 13:55 Urine Glucose (UA) Norm (Normal) 04/04/22 13:55 Urine Ketones 1+ (Negative) H 04/04/22 13:55 Urine Blood Neg (Negative) 04/04/22 13:55 Urine Nitrate Negative (Negative) 04/04/22 13:55 Urine Bilirubin 1+ (Negative) H 04/04/22 13:55 Urine Urobilinogen 4 mg/dL (Negative) H 04/04/22 13:55 Ur Leukocyte Esterase 2+ (Negative) H 04/04/22 13:55 Urine RBC 0-4 /hpf (0-2) H 04/04/22 13:55 Urine WBC >100 /hpf (0-5) H 04/04/22 13:55 Ur Squamous Epith Cells 0-4 /hpf (0-5) H 04/04/22 13:55 Amorphous Sediment Not Reportable 04/04/22 13:55 Urine Bacteria 4+ /hpf (NONE) H 04/04/22 13:55 Urine Mucus 2+ /hpf 04/04/22 13:55 Peritoneal Color Pale yellow (Pale Yellow) 04/10/22 11:00 Peritoneal Appearance Clear (Clear) 04/10/22 11:00 Peritoneal WBC 1254 /uL 04/10/22 11:00 Peritoneal RBC 1 10^3/uL 04/10/22 11:00 Periton Mononu # Auto 1.060 10^3/uL 04/10/22 11:00 Mononuclear WBCs % 84.500 % 04/10/22 11:00 Polynuclear WBCs % 15.500 % 04/10/22 11:00 Perit Polynuc WBCs # 0.194 10^3/uL 04/10/22 11:00 Peritoneal Diff Commnt Yes 04/10/22 11:00 Peritoneal Tot Protein 2.7 g/dL 04/10/22 11:00 Peritoneal Albumin 1.5 g/dL 04/10/22 11:00 Peritoneal LDH 440.0 U/L 04/10/22 11:00 Peritoneal Amylase 12 U/L (88-109) L 04/10/22 11:00 Free [employer] Light Chains 34.2 mg/L (3.3-19.4) H 04/04/22 13:36 Free Lambda Light Chain 23.0 mg/L (5.7-26.3) 04/04/22 13:36 Free [employer]/Lambda Ratio 1.49 (0.26-1.65) 04/04/22 13:36 SARS-CoV-2 Ag (Rapid) negative (Negative) 04/14/22 Unknown Vitals Last Vital Signs Temp 98.3 F 04/14/22 11:07 Pulse 105 H 04/14/22 11:07 Resp 19 H 04/14/22 11:07 BP 98/60 04/14/22 08:00 Pulse Ox 90 04/14/22 11:07 O2 Del Method 04/14/22 11:07 O2 Flow Rate 3 04/14/22 08:00 FiO2 3 04/12/22 11:32 Discharge Plan Discharge Patient Disposition: Xfer SNF Condition: Stable Prescriptions: New sodium chloride 1 gram Tablet 1 g PO BID 30 Days Qty: 60 0RF levothyroxine 25 mcg Tablet 25 mcg PO QAM 30 Days Qty: 30 0RF pantoprazole 40 mg Tablet,Delayed Release (Dr/Ec) 40 mg PO DAILY 30 Days Qty: 30 0RF furosemide 20 mg Tablet 20 mg PO DAILY@0800 30 Days Qty: 30 0RF Continued Osteo Bi-Flex 250-200 mg Tablet 1 tab PO DAILY Rx Instructions: give after food/meal Discharge Orders: Discharge Order (Routine); Ordered 04/14/22 Ordered By: Rahel Henderson Referrals: [facility] [Outside] Fco Meyer MD [Primary Care Provider] - Balta Chavez MD [Hospitalist] - 7-10 days Discharge Diet: Usual diet Discharge Activity: Resume usual activity Patient Instructions: Opioid Safety Discharge Attestations Time Spent in Discharge Care*: greater than 30 min Quality Metrics Clinical Quality Measures [ No reported AMI, CVA or VTE this stay] Coding Level of Care Code Acute Chg FW DC note Diagnoses Protein calorie malnutrition E46 Muscular deconditioning R29.898 Metastatic cancer to bone C79.51 Metastatic cancer to liver C78.7 Generalized weakness R53.1 Hyponatremia E87.1 Bacterial UTI N39.0; A49.9 Infectious encephalopathy G93.49; B99.9 Dehydration E86.0
--- NOTE | 2022-04-14 15:02 | PC.NURSE ---
1449 report called to [facility].
--- NOTE | 2022-04-14 15:03 | PC.NURSE ---
[address] [facility] per recieving facility transport. patient taken per wheel chair with 3 liters 02 per [place] to transport van patient in stable condition. accompained per staff to transport van
[2022-04-14 15:06] VITALS: BP 98/60; PULSE 105; RESP 19; TEMP 36.8; O2SAT 90
== END 2022-04-14 15:03 | disposition skilled nursing facility (03) | DRG 690 ==
LOC: ER 16:33 → MEDSURG 17:34
PROVIDERS: Internal Medicine; Radiology Diagnostic Radiology; Admitting Provider Family Medicine; Emergency Provider Emergency Medicine; PCP Family Medicine; Visit Provider Student in an Organized Health Care Education/Training Program
PROC: 0FD23ZX Extraction of Left Lobe Liver, Percutaneous Approach, Diagnostic (ICD-10-PCS; principal; 2022-04-12 09:30)
DX: N39.0 Urinary tract infection, site not specified (principal); G93.49 Other encephalopathy; R18.8 Other ascites; C79.51 Secondary malignant neoplasm of bone; C78.7 Secondary malignant neoplasm of liver and intrahepatic bile duct; E22.2 Syndrome of inappropriate secretion of antidiuretic hormone; E46 Unspecified protein-calorie malnutrition; B96.1 Klebsiella pneumoniae [K. pneumoniae] as the cause of diseases classified elsewhere; M54.12 Radiculopathy, cervical region; E86.0 Dehydration; C80.1 Malignant (primary) neoplasm, unspecified; Z68.29 Body mass index [BMI] 29.0-29.9, adult; E03.9 Hypothyroidism, unspecified
CPT/HCPCS: 36415; 47000; 49083; 70450; 71045; 71275; 74176; 76705; 76942; 80048; 80053; 80061; 80503; 81001; 82042; 82150; 82232; 82378; 83036; 83605; 83615; 83735; 83883; 84100; 84145; 84157; 84439; 84443; 84481; 84484; 85025; 85610; 86140; 86301; 86304; 87040; 87077; 87086; 87186; 87426; 88307; 88342; 89050; 93005; 93970; 96361; 96372; 96374; 97110; 97116; 97140; 97161; 97166; 97530; 97535; 99285; C9113; J0696; J1650; J1940; J3475; J7030; J7120; Q3014; Q9967

== ENCOUNTER 2022-04-18 14:38 | Inpatient (IN) | payer MEDICARE, SELFPAY ==
[2022-04-18] VITALS (46 sets, daily range): BP systolic 82–121; BP diastolic 59–91; PULSE 83–109; RESP 15–27; TEMP 36.6–36.7; O2SAT 89–100; BMI 25.8; BMI 28.6
--- NOTE | 2022-04-18 14:51 | W.ED.SOB ---
HPI - SOB/Dyspnea General: Chief Complaint: Shortness of Breath/Dyspnea Stated Complaint: SOB/Hypoxia Time Seen by Provider: 04/18/22 14:39 Source: patient Mode of arrival: ambulatory History of Present Illness: HPI Narrative: 76-year-old female who is sent in from [facility] with increasing shortness of breath and tachycardia. When I came in the room she is at 87 to 88% on 5 L on nasal cannula. She has history of breast cancer with mets to liver and bone. MD elicited complaint: shortness of breath and cough Pertinent past history: COPD Onset (ago): hour(s) Timing: constant Severity: severe Exacerbating factors: lying flat, exertion and movement Associated symptoms: Reports chest congestion, cough and myalgias; Deny abdominal pain, chest pain, fever(s), nausea, orthopnea or vomiting Treatment prior to arrival: oxygen Review of Systems Const: Denies: fever(s), chills, body aches, change in appetite, fatigue or malaise ENMT: Denies: throat pain, ear or mastoid pain, nasal discharge or nasal congestion Card: Denies: chest pain, edema, dyspnea on exertion or orthopnea Resp: Reports: chest congestion GI: Denies: abdominal pain, nausea, vomiting, hematemesis, coffee ground emesis, diarrhea, constipation, bloating, hematochezia or melena : Denies: flank pain, difficulty voiding, dysuria, urinary frequency or urinary urgency Skin/Breast: Denies: rash or pruritus PFSH ED PFSH: Medical History Cervical radiculopathy Metastatic cancer to bone Metastatic cancer to liver Protein calorie malnutrition Family History Brother Leukemia CAD (coronary artery disease) Social History Smoking and tobacco status: never smoked Physical Exam HENMT: COMMON NORMALS: normocephalic, atraumatic and hearing grossly normal bilaterally HEAD & SCALP: normocephalic and atraumatic Resp: COMMON NORMALS: No use of accessory muscles EFFORT & INSPECTION: Yes respiratory distress and Yes uses accessory muscles AUSCULTATION: rhonchi and wheezes Cardio: COMMON NORMALS: regular rhythm and No murmurs present (Cardio) RATE: tachycardic RHYTHM: regular rhythm GI: COMMON NORMALS: Soft to palpation and No hepatosplenomegaly present AUSCULTATION: Yes normoactive bowel sounds PALPATION: Yes Soft to palpation, No Tenderness to palpation present (GI), No Guarding due to palpation present (GI) and Yes No hepatosplenomegaly present Extremity: COMMON NORMALS: normal to inspection, capillary refill normal, no clubbing, cyanosis or edema, no calf tenderness and no pedal edema Skin: COMMON NORMALS: no rashes or lesions noted GENERAL SKIN EXAM: no rashes or lesions noted Course Vital Signs: Vital signs: Vital Signs Temperature 98.1 F 04/24/22 12:00 Pulse Rate 0 L 04/24/22 15:15 Respiratory Rate 0 L 04/24/22 15:15 Blood Pressure 0/0 04/24/22 15:15 Pulse Oximetry 0 L 04/24/22 15:15 Oxygen Delivery Me thod 04/24/22 08:41 Oxygen Flow Rate 3 04/24/22 08:41 Fraction of Inspir ed Oxygen 45 04/21/22 00:00 MDM - SOB/Dyspnea Medical Decision Making Acute respiratory failure with tachypnea and tachycardia on arrival. Patient has decompensated congestive heart failure and suspect some underlying pneumonia. She has metastatic disease to multiple organs as well. We contacted the family for now they wish to continue to have the patient be a full code. Discussed Dr. Friedman orders written. CT showed pulmonary emboli. Dr. Friedman is aware and will address. Medical Records I reviewed the patient's medical records. Lab Data I reviewed the patient's lab results. 04/18/22 15:37 04/18/22 15:37 Labs/Radiology: Radiology Impressions Chest CTA 04/18/22 15:02 IMPRESSION: 1. Stable hypodense hepatic lesions most consistent with stable hepatic metastasis. 2. Decreased size of 4 mm pulmonary nodule right upper lobe, axial series 7, image 105. Previously this measured 6 mm. Treated pulmonary metastasis versus resolving infectious process. 3. Stable moderate ascites. 4. Stable small right pleural fluid collection. 5. Mild calcified coronary artery disease. 6. Mild right basilar atelectasis and/or pneumonia. 7. No pulmonary embolus or aortic dissection. 8. Right posteroinferior T1 vertebral body lytic bone destruction. 9. Continued extensive lytic bone destruction throughout the sternum. 10. Continued lytic bone destruction in the left posterior T5 vertebral body with destruction of the left T5 pedicle. 11. 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 12. Extensive lytic bone destruction in T9 vertebral body and left T9 pedicle. 13. Lytic bone destruction in the left anterior T11 vertebral body. 14. 4. Stable small right pleural fluid collection. ADDENDUM: 04/19/22918 There are segmental and subsegmental pulmonary emboli in the bilateral upper lobes. THIS REPORT CONTAINS FINDINGS THAT MAY BE CRITICAL TO PATIENT CARE. The findings were verbally communicated via telephone conference with Dr. Friedman with Dr. Schmitz at 8:26 AM MANAGER [employer]ASK[employer] on 04/19/2022. The findings were acknowledged and understood. Chest X-Ray 04/18/22 15:02 Impression: Atherosclerosis. Head CT 04/19/22 11:16 IMPRESSION: 1. No acute intracranial hemorrhage or edema. 2. Study is compromised by motion artifact. 3. No metastatic lesions are identified. 4. Moderate atrophy and small vessel ischemic disease. Abdomen Ultrasound 04/21/22 11:17 Impression: Moderate abdominal ascites. Renal Ultrasound 04/21/22 11:18 Impression: Negative bilateral renal ultrasound. Laboratory Results WBC 15.0 10^3/uL (4.0-10.0) H 04/18/22 15:37 RBC 4.59 10^6/uL (4.1-5.3) 04/18/22 15:37 Hgb 13.9 g/dL (11.5-15.3) 04/18/22 15:37 Hct 42.9 % (37.0-47.0) 04/18/22 15:37 MCV 93.5 fl (81-99) 04/18/22 15:37 MCH 30.3 pg (28.0-34.0) 04/18/22 15:37 MCHC 32.4 g/dL (30.0-36.0) 04/18/22 15:37 RDW 16.0 % (12.1-15.1) H 04/18/22 15:37 Plt Count 157 10^3/cmm (130-400) 04/18/22 15:37 MPV 9.8 fL (7.4-10.4) 04/18/22 15:37 Neut % (Auto) 90.8 % 04/18/22 15:37 Lymph % (Auto) 4.1 % 04/18/22 15:37 [place] % (Auto) 3.5 % 04/18/22 15:37 Eos % (Auto) 0.1 % 04/18/22 15:37 Baso % (Auto) 0.1 % 04/18/22 15:37 Neut # (Auto) 13.61 10^3/uL (1.8-7.7) H 04/18/22 15:37 Lymph # (Auto) 0.6 10^3/uL (0.8-4.8) L 04/18/22 15:37 [place] # (Auto) 0.5 10^3/uL (0.2-0.9) 04/18/22 15:37 Eos # (Auto) 0.0 10^3/uL (0.0-0.8) 04/18/22 15:37 Baso # (Auto) 0.0 10^3/uL (0.0-0.1) 04/18/22 15:37 Nucleated RBC % (auto) 0 % 04/18/22 15:37 Nucleated RBCs # 0.0 /100WBC 04/18/22 15:37 Specimen Type Arterial 04/18/22 17:56 Sample Site Radial, left 04/18/22 17:56 ABG pH 7.40 (7.35-7.45) 04/18/22 17:56 ABG pCO2 33.4 mmHg (35-45) L 04/18/22 17:56 ABG pO2 354.0 mmHg (80.0-100.0) H 04/18/22 17:56 ABG HCO3 20.9 mmol/L (22-26) L 04/18/22 17:56 ABG O2 Saturation > 100.0 04/18/22 17:56 ABG Base Excess -3.3 mmol/L (-2.0-2.0) L 04/18/22 17:56 [place] Test Pos 04/18/22 17:56 A-a O2 Gradient 39.8 mmHg (5-10) H 04/18/22 17:56 Hematocrit 32.7 % (37-47) L 04/18/22 17:56 Hgb O2 Saturation 99.1 % (95-100) 04/18/22 17:56 Carboxyhemoglobin 0.8 %THgb (0.4-20.1) 04/18/22 17:56 Methemoglobin 0.8 % (0.4-1.5) 04/18/22 17:56 Total Hemoglobin 10.7 g/dL (12-16) L 04/18/22 17:56 Sodium 133.0 mmol/L (131-143) 04/18/22 17:56 Potassium 4.1 mmol/L (3.5-5.0) 04/18/22 17:56 Glucose 96.0 mg/dL (70-115) 04/18/22 17:56 Ionized Calcium 1.6 mmol/L (1.1-1.4) H 04/18/22 17:56 O2 Delivery Device Bipap 04/18/22 17:56 O2 Liters/Min 15.0 % 04/18/22 15:25 FiO2 100.0 % 04/18/22 17:56 Weight Loss Sales Consultant ID [email or web address] 04/18/22 17:56 Sodium 133 mmol/L (136-145) L 04/18/22 15:37 Potassium 5.1 mmol/L (3.5-5.1) 04/18/22 15:37 Chloride 97 mmol/L (98-107) L 04/18/22 15:37 Carbon Dioxide 21 mmol/L (22-29) L 04/18/22 15:37 Anion Gap 20.1 (5-19) H 04/18/22 15:37 BUN 54 mg/dL (8-23) H 04/18/22 15:37 Creatinine 1.2 mg/dL (0.5-0.9) H 04/18/22 15:37 GFR Calculation Not Reportable 04/18/22 15:37 Glucose 116 mg/dL (65-115) H 04/18/22 15:37 Calculated Osmolality 292 mOsm/kg (285-295) 04/18/22 15:37 Lactic Acid 3.7 mmol/L (0.5-2.2) H 04/18/22 15:37 Calcium 12.8 mg/dL (8.5-10.5) H 04/18/22 15:37 Magnesium 2.2 mg/dL (1.7-2.3) 04/18/22 15:37 Total Bilirubin 0.8 mg/dL (0.15-1.2) 04/18/22 15:37 AST 40 U/L (0-32) H 04/18/22 15:37 ALT 14 U/L (0-33) 04/18/22 15:37 Alkaline Phosphatase 176 U/L (35-105) H 04/18/22 15:37 NT-Pro-B Natriuret Pep 3728 pg/mL (0-450) H 04/18/22 15:37 Total Protein 6.0 g/dL (6.6-8.7) L 04/18/22 15:37 Albumin 3.0 g/dL (3.5-5.2) L 04/18/22 15:37 Globulin 3.0 g/dL (1.3-4.6) 04/18/22 15:37 Urine Color Yellow (Yellow) 04/18/22 18:38 Urine Appearance Sl hazy (CLEAR) A 04/18/22 18:38 Urine pH 5 (5-7) 04/18/22 18:38 Ur Specific [place] 1.025 (1.005-1.030) 04/18/22 18:38 Urine Protein Trace (Negative) 04/18/22 18:38 Urine Glucose (UA) Norm (Normal) 04/18/22 18:38 Urine Ketones Negative (Negative) 04/18/22 18:38 Urine Blood Neg (Negative) 04/18/22 18:38 Urine Nitrate Negative (Negative) 04/18/22 18:38 Urine Bilirubin 1+ (Negative) H 04/18/22 18:38 Urine Urobilinogen Norm mg/dL (Negative) 04/18/22 18:38 Ur Leukocyte Esterase Negative (Negative) 04/18/22 18:38 Urine RBC None /hpf (0-2) 04/18/22 18:38 Urine WBC 0-4 /hpf (0-5) H 04/18/22 18:38 Ur Squamous Epith Cells 0-4 /hpf (0-5) H 04/18/22 18:38 Ur Renal Epithelial Cell 0-4 /hpf 04/18/22 18:38 Calcium Oxalate Crystal 0-4 /hpf H 04/18/22 18:38 Amorphous Sediment Not Reportable 04/18/22 18:38 Urine Bacteria Trace /hpf (NONE) 04/18/22 18:38 Hyaline Casts 25-40 /lpf H 04/18/22 18:38 Coronavirus 229E (PCR) Not detected (NOT DETECT) 04/18/22 16:45 SARS-CoV-2 (PCR) Not detected (NOT DETECT) 04/18/22 16:45 Critical Care Time Critical Care Time: Critical Care Time: Yes Total Critical Care Time: 45 Attestation: The high probability of a clinically significant, sudden or life threatening deterioration of the patient's respiratory system(s) required my full and direct attention, intervention and personal management. The critical care time is as shown. This time is in addition to time spent performing any reported procedures but includes the following: [x] Data and vital sign review and interpretation [x] Patient assessment, examination and intervention [x] Documentation [x] Medication orders and management Discharge Plan Discharge Patient Disposition: Admitted As Inpatient Admit Provider: Mina Friedman Clinical Impression: Acute respiratory failure with hypoxia, Pneumonia, PE (pulmonary thromboembolism), Congestive heart failure, Metastatic cancer to bone, Metastatic cancer to liver, Acute encephalopathy, ROSALIA (acute kidney injury), Hypercalcemia Condition: Coding Level of Care Code ED Slot Floorperson for Chg Fwd Exam Detailed
--- NOTE | 2022-04-18 15:02 | XR_ITS ---
WS: [id number] Portable AP upright chest, 04/18/2022 Clinical Data: dyspnea/cough Comparison: Portable chest, 04/04/2022 Findings: No nodules, masses or effusions are seen. The heart is normal. The pulmonary vascularity is not increased. No pneumonia or pneumothorax is seen. There is a poor inspiratory effort. The aortic arch and descending thoracic aorta show tortuosity. Monitor leads are on the chest wall. XR/XR chest 1V portable [id number] Impression: Atherosclerosis.
--- NOTE | 2022-04-18 15:02 | CTR_ITS ---
PROCEDURE INFORMATION: Exam: CTA Chest With Contrast Exam date and time: 04/18/2022 5:55 PM Age: 76 years old Clinical indication: Dyspnea and shortness of breath; Additional info: Dyspnea/hypoxia TECHNIQUE: Imaging protocol: Computed tomographic angiography of the chest with contrast. 3D rendering (Not supervised by radiologist): MIP and/or 3D reconstructed images were created by the technologist. Radiation optimization: All CT scans at this facility use at least one of these dose optimization techniques: automated exposure control; mA and/or kV adjustment per patient size (includes targeted exams where dose is matched to clinical indication); or iterative reconstruction. Contrast material: OMNIPAQUE 350; Contrast volume: 95 ml; Contrast route: INTRAVENOUS (IV); COMPARISON: CT angio chest PE protcl [id number] 04/05/2022 8:54 AM RADIATION DOSE METRICS: Total DLP (mGy-cm): 380.25 FINDINGS: Pulmonary arteries: No pulmonary embolus or aortic dissection. Aorta: Calcification of the thoracic aorta and/or great vessels consistent with atherosclerotic vessel disease. Lungs: Decreased size of 4 mm pulmonary nodule right upper lobe, axial series 7, image 105. Previously this measured 6 mm. Treated pulmonary metastasis versus resolving infectious process. Mild right basilar atelectasis and/or pneumonia. Pleural spaces: Stable small right pleural fluid collection. Heart: Unremarkable. No cardiomegaly. No pericardial effusion. Coronary arteries: Mild calcified coronary artery disease. Lymph nodes: Calcified right hilar nodes and/or mediastinal nodes and/or lung granulomas consistent with old granulomatous disease. Liver: Stable hypodense hepatic lesions most consistent with stable hepatic metastasis. Intraperitoneal space: Stable moderate ascites. Bones/joints: Right posteroinferior T1 vertebral body lytic bone destruction. Continued extensive lytic bone destruction throughout the sternum. Continued lytic bone destruction in the left posterior T5 vertebral body with destruction of the left T5 pedicle. 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 Left T7 benign intraosseous bone hemangioma. Extensive lytic bone destruction in T9 vertebral body and left T9 pedicle. Lytic bone destruction in the left anterior T11 vertebral body. Continued lytic bone destruction in the spine of the left scapula, better seen on the previous exam. Axial series 7, image 61. Lytic bone destruction in the right lateral 8th rib. Soft tissues: Unremarkable. CT/CT angio chest PE protcl [id number] IMPRESSION: 1. Stable hypodense hepatic lesions most consistent with stable hepatic metastasis. 2. Decreased size of 4 mm pulmonary nodule right upper lobe, axial series 7, image 105. Previously this measured 6 mm. Treated pulmonary metastasis versus resolving infectious process. 3. Stable moderate ascites. 4. Stable small right pleural fluid collection. 5. Mild calcified coronary artery disease. 6. Mild right basilar atelectasis and/or pneumonia. 7. No pulmonary embolus or aortic dissection. 8. Right posteroinferior T1 vertebral body lytic bone destruction. 9. Continued extensive lytic bone destruction throughout the sternum. 10. Continued lytic bone destruction in the left posterior T5 vertebral body with destruction of the left T5 pedicle. 11. 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 12. Extensive lytic bone destruction in T9 vertebral body and left T9 pedicle. 13. Lytic bone destruction in the left anterior T11 vertebral body. 14. 4. Stable small right pleural fluid collection.
--- NOTE | 2022-04-18 15:34 | PC.PHAR ---
LYNN THE NURSE FROM [facility] THE PT SPIT OUT HER MEDS THIS MORNING- NURSE UNSURE IF SHE SWALLOWED ANY OF HER MEDS
[2022-04-18 15:36] LABS: Arterial Blood Gas Hematocrit 38.3 % (37-47); Base Excess ABG -3.4 mmol/L (-2.0-2.0); Blood Gas Allen Test Pos; Blood Gas Sample Type Arterial; Carboxyhemoglobin 1.4 %THgb (0.4-20.1); HCO3 ABG 20.6 mmol/L (22-26); HGB O2 Sat 87.7 % (95-100); Ionized Calcium Level - ABG 1.7 mmol/L (1.1-1.4); Methemoglobin 0.3 % (0.4-1.5); Oxygen Saturation ABG 89.2; PO2 ABG 55.4 mmHg (80.0-100.0); Potassium Level - ABG 4.8 mmol/L (3.5-5.0); Total Hemoglobin 12.5 g/dL (12-16)
[2022-04-18 15:37] LABS: Alveolar-Arterial Oxygen Gradi 79.8 mmHg (5-10); Blood Gas Operator Identificat glc; Blood Gas Sample Site Radial, right; Oxygen Device NRB
[2022-04-18 16:09] LABS: Basophils % 0.1 %; Eosinophils % 0.1 %; Hematocrit 42.9 % (37.0-47.0); Hemoglobin 13.9 g/dL (11.5-15.3); Lymphocytes # 0.6 10^3/uL (0.8-4.8); Lymphocytes % 4.1 %; Mean Corpuscular HGB Conc 32.4 g/dL (30.0-36.0); Mean Corpuscular Hemoglobin 30.3 pg (28.0-34.0); Mean Corpuscular Volume 93.5 fl (81-99); Mean Platelet Volume 9.8 fL (7.4-10.4); Monocytes # 0.5 10^3/uL (0.2-0.9); Monocytes % 3.5 %; Neutrophils # 13.61 10^3/uL (1.8-7.7); Neutrophils % 90.8 %; Nucleated Red Blood Cells % 0 %; Platelet Count 157 10^3/cmm (130-400); Red Blood Count 4.59 10^6/uL (4.1-5.3)
[2022-04-18] MEDS: sodium chloride 0.9% 1,000 ML 999 ML IV (16:20)
[2022-04-18 16:31] LABS: Alanine Aminotransferase 14 U/L (0-33); Alkaline Phosphatase 176 U/L (35-105); Anion Gap 20.1 (5-19); Aspartate Amino Transferase 40 U/L (0-32); Blood Urea Nitrogen 54 mg/dL (8-23); Calcium 12.8 mg/dL (8.5-10.5); Carbon Dioxide 21 mmol/L (22-29); Chloride 97 mmol/L (98-107); Glucose 116 mg/dL (65-115); Magnesium 2.2 mg/dL (1.7-2.3); Osmolality Calculated 292 mOsm/kg (285-295); Potassium 5.1 mmol/L (3.5-5.1); Sodium 133 mmol/L (136-145); Total Bilirubin 0.8 mg/dL (0.15-1.2)
[2022-04-18 16:32] LABS: Lactic Sepsis W/Reflex 3.7 mmol/L (0.5-2.2)
[2022-04-18 17:41] LABS: Reflex Lactate Order REFLEX LACTIC ORDERD
[2022-04-18] MEDS: iohexol 350 mg/mL 500 mL Btl (per mL) IV (18:20)
[2022-04-18 18:26] LABS: ABG PCO2 33.4 mmHg (35-45); Alveolar-Arterial Oxygen Gradi 39.8 mmHg (5-10); Arterial Blood Gas Hematocrit 32.7 % (37-47); Base Excess ABG -3.3 mmol/L (-2.0-2.0); Blood Gas Allen Test Pos; Blood Gas Operator Identificat glc; Blood Gas Sample Site Radial, left; Blood Gas Sample Type Arterial; Carboxyhemoglobin 0.8 %THgb (0.4-20.1); HCO3 ABG 20.9 mmol/L (22-26); HGB O2 Sat 99.1 % (95-100); Ionized Calcium Level - ABG 1.6 mmol/L (1.1-1.4); Methemoglobin 0.8 % (0.4-1.5); Oxygen Device BIPAP; Oxygen Saturation ABG > 100.0; Potassium Level - ABG 4.1 mmol/L (3.5-5.0); Total Hemoglobin 10.7 g/dL (12-16)
[2022-04-18] MEDS: meropenem 1,000 MG in sodium chloride 0.9% (plus) 50 ML 100 MG IV (19:23)
--- NOTE | 2022-04-18 19:49 | PM.HP ---
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 Involvement at T5 and T9 encroaches into the thoracic cord and foramina, however no obvious signs of cord compression were noted. There was also metastatic disease throughout the sternum. During hospitalization he was also treated for hyponatremia, started on sodium and chloride tablets. 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 And also underwent paracentesis with 800 cc fluid removed. Started on Lasix. Also found to to have hypothyroidism for which was started on levothyroxine. Due to deconditioning [facility] with follow-up with heme-onc. She is brought in from detention for evaluation due to increased shortness of breath and tachycardia, on presentation with hypoxia on 5 L saturating 87-88%. Initially tachycardic 103-107. He seven-point /33/50 5.4/20.6 on 100% nonrebreather. Leukocytosis 15,000. Chest x-ray showing atherosclerosis otherwise no acute abnormality. Noted sodium 133, potassium 4.1, chloride 97, bicarb 21, anion gap 20.1, BUN 54, creatinine 1.2, glucose 116, lactic acid 3.7. Calcium 12.8. AST 40. Alk phos 176. Urinalysis and COVID-[address] angiogram of the chest was obtained as well. IMPRESSION: 1. Stable hypodense hepatic lesions most consistent with stable hepatic metastasis. 2. Decreased size of 4 mm pulmonary nodule right upper lobe, axial series 7, image 105. Previously this measured 6 mm. Treated pulmonary metastasis versus resolving infectious process. 3. Stable moderate ascites. 4. Stable small right pleural fluid collection. 5. Mild calcified coronary artery disease. 6. Mild right basilar atelectasis and/or pneumonia. 7. No pulmonary embolus or aortic dissection. 8. Right posteroinferior T1 vertebral body lytic bone destruction. 9. Continued extensive lytic bone destruction throughout the sternum. 10. Continued lytic bone destruction in the left posterior T5 vertebral body with destruction of the left T5 pedicle. 11. 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 12. Extensive lytic bone destruction in T9 vertebral body and left T9 pedicle. 13. Lytic bone destruction in the left anterior T11 vertebral body. 14. 4. Stable small right pleural fluid collection. She denies any vomiting. Her son who is with her at bedside states that they had just had a meal together a few days ago and she was not having any signs of aspiration. She denies chest pain or pressure. Review of systems is otherwise very limited with BiPAP mask and she is somnolent. Review of Systems General: Reports: ROS unobtainable due to medical condition Medications/Allergies Home Medications Medication Instructions Recorded Confirmed Last Taken Type glucosamine-chondroitin 250 mg-200 1 tab PO DAILY 04/04/22 04/18/22 04/03/22 History mg tablet (Osteo Bi-Flex) levothyroxine 25 mcg tablet 25 mcg PO QAM 30 days #30 tabs 04/14/22 04/18/22 Unknown Rx pantoprazole 40 mg tablet,delayed 40 mg PO DAILY 30 days #30 tabs 04/14/22 04/18/22 Unknown Rx release sodium chloride 1 gram tablet 1 g PO BID 30 days #60 tabs 04/14/22 04/18/22 Unknown Rx acetaminophen 325 mg tablet 650 mg PO QID PRN Pain 04/18/22 04/18/22 Unknown History bisacodyl 10 mg rectal suppository 10 mg UT DAILY PRN Constipation 04/18/22 04/18/22 Unknown History magnesium hydroxide 400 mg/5 mL 30 ml PO Q30H PRN Constipation 04/18/22 04/18/22 Unknown History oral suspension (Milk of Magnesia) polyethylene glycol 3350 17 4 g PO DAILY PRN Constipation 04/18/22 04/18/22 Unknown History gram/dose oral powder (Miralax) sennosides 8.6 mg tablet 8.6 mg PO DAILY PRN Constipation 04/18/22 04/18/22 Unknown History sodium phosphates 19 gram-7 118 ml UT DAILY PRN Constipation 04/18/22 04/18/22 Unknown History gram/118 mL enema (Enema) Allergies Allergy/AdvReac Type Severity Reaction Status Date / Time Penicillins Allergy Intermediate ADR-Dizzine Verified 04/18/22 15:34 ss PFSH Acute PFSH: Medical History Breast CA Cervical radiculopathy Metastatic cancer to bone Metastatic cancer to liver Protein calorie malnutrition Family History Brother Leukemia CAD (coronary artery disease) Social History Smoking and tobacco status: never smoked Vitals/I&O/Wt Last Vital Signs Temp 97.9 F 04/18/22 14:45 Pulse 86 04/18/22 19:00 Resp 17 04/18/22 19:00 BP 91/70 04/18/22 19:00 Pulse Ox 100 04/18/22 19:00 O2 Del Method 04/18/22 19:00 O2 Flow Rate 15 04/18/22 15:11 FiO2 80 04/18/22 19:00 Weight last 48 hrs Weight 72.575 kg Physical Exam Narrative: Son at her bedside holding her hand and comforting her. Const: ORIENTATION/CONSCIOUSNESS: Yes lethargic (Wakes up to voice.) HENMT: COMMON NORMALS: oropharynx normal Neck/C-Spine: GENERAL: Yes JVD Resp: AUSCULTATION: crackles Laterality: right (base) Cardio: COMMON NORMALS: regular rhythm, S1 normal heart sound present, S2 normal heart sound present and No murmurs present (Cardio) RHYTHM: regular rhythm HEART SOUNDS: S1 normal heart sound present and S2 normal heart sound present GI: COMMON NORMALS: Normal to inspection, nondistended, normoactive bowel sounds present, Soft to palpation and non-tender PALPATION: Yes Soft to palpation Extremity: COMMON NORMALS: no joint enlargement GENERAL: Yes edema (2+) Neuro: COMMON NORMALS: moves all extremities Skin: COMMON NORMALS: no rashes or lesions noted GENERAL SKIN EXAM: no rashes or lesions noted Urinary Catheter Management: Bazzi: Cath Placed During This Visit: yes Reason for Continuing Indwelling Catheter: Acute Urinary Retention or Obstruction Urinary Catheter Date of Insertion: 04/18/22 Urinary Catheter Time of Insertion: 18:39 Data 04/18/22 15:37 04/18/22 15:37 Micro: Microbiology 04/18/22 15:37 Blood Culture - Preliminary Blood SPECIMEN COLLECTED 04/18/22 15:49 Blood Culture - Preliminary Blood SPECIMEN COLLECTED A&P Assessment and plan (1) Acute respiratory failure with hypoxia: Suspected multifactorial secondary to CHF, type unknown, with noted JVD, peripheral edema, also noted crackles in right lung. Leukocytosis 15,000. Empirically started on Primaxin, continue with vancomycin which will give good coverage for other possible sources of infection. 20 mg IV Lasix push. Assess TTE. Troponin EKG series. Continue BiPAP support, noted improved 1. FiO2 down to 80%. Improvement in tachycardia. (2) Acute encephalopathy: She is somewhat lethargic muscles secondary to pneumonia, hypoxia. No hypercapnia. Check ammonia. (3) ROSALIA (acute kidney injury): 1.2. Received fluid challenge. However, also in CHF Questionably received 20 mg IV Lasix. Reassess renal function. (4) Pneumonia: Right basilar opacity. Suspected possible pneumonia. She has not been coughing much, her, with leukocytosis, hypoxia. COVID-19 PCR pending. No PE. Miranda, vancomycin. (5) Hypercalcemia: In the setting of metastatic malignant to bone. Received fluid bolus. Will give calcitonin. Depending on renal function and mental status consideration may be candidate for bisphosphonate. Not currently. Plan Hyponatremia: Mild hyponatremia currently appears to be at baseline, 133. Metastatic adenocarcinoma, unknown primary. Ascites Metastatic cancer to bone Metastatic cancer to liver Generalized weakness Recent UTI Attestations Medical Necessity Statement*: Admission of over 2 midnights anticipated versus management of hypoxic respiratory failure, acute CHF, pneumonia, hypercalcemia, acute encephalopathy in a lady with metastatic malignancy. Critical Care Time: The high probability of a clinically significant, sudden or life threatening deterioration of the patient's respiratory, cardiac, endocrine/metabolic system(s) required my full and direct attention, intervention and personal management. The critical care time is as shown. This time is in addition to time spent performing any reported procedures but includes the following: x Data and vital sign review and interpretation x Patient assessment, examination and intervention x Documentation x Medication orders and management Critical Care Time (min): 45 Coding Level of Care Code Acute Security Assessor for [facility] Diagnoses Acute respiratory failure with hypoxia J96.01 Acute encephalopathy G93.40 ROSALIA (acute kidney injury) N17.9 Pneumonia J18.9 Hypercalcemia E83.52
[2022-04-18 20:02] LABS: NT Pro B Type Natriuretic Pept 3728 pg/mL (0-450)
[2022-04-18] MEDS: FUROsemide 10 mg/mL SDV 2mL 20 MG IVP (20:20)
--- NOTE | 2022-04-18 20:23 | ECG_ITS ---
[facility] Test Date: 2022-04-18 Pat Name: Renetta Lazaro Department: Room: ICU11 Gender: Female Medical Laboratory Manager: : 1945 Requested By: Mina Friedman Order Number: [id number] Reading MD: Eve Malave M.D. Measurements Intervals [place] Rate: 92 P: 27 FL: 187 QRS: 0 QRSD: 109 T: 55 QT: 336 QTc: 417 Interpretive Statements SINUS RHYTHM WITH OCCASIONAL SUPRAVENTRICULAR PREMATURE COMPLEXES LOW QRS VOLTAGE IN PRECORDIAL LEADS [QRS DEFLECTION < 1.0 mV IN CHEST LEADS] POSSIBLE ANTERIOR MYOCARDIAL INFARCTION , PROBABLY OLD [30 ms Q WAVE IN V3/V4, OR R < 0.2 mV IN V4] Compared to ECG 04/05/2022 02:37:57 Left-axis deviation no longer present Myocardial infarct finding still present Electronically Signed On 04-19-2022 7:45:23 MANAGER HOME IMPROVEMENT by Eve Malave M.D. [email or web address] [email or web address]/[id number]
[2022-04-18 20:27] LABS: Adenovirus Not Detected (NOT DETECT); Chlamydia Pneumoniae Not Detected (NOT DETECT); Coronavirus 229E,HKU1,NL63,OC4 Not Detected (NOT DETECT); Human Metapneumovirus Not Detected (NOT DETECT); Human Rhinovirus/Enterovirus Not Detected (NOT DETECT); Influenza A Not Detected (NOT DETECT); Influenza A H1 Not Detected (NOT DETECT); Influenza A H1-2009 Not Detected (NOT DETECT); Influenza A H3 Not Detected (NOT DETECT); Influenza B Not Detected (NOT DETECT); Mycoplasma Pneumoniae Not Detected (NOT DETECT); Parainfluenza Virus Type 1 Not Detected (NOT DETECT); Parainfluenza Virus Type 2 Not Detected (NOT DETECT); Parainfluenza Virus Type 3 Not Detected (NOT DETECT); Parainfluenza Virus Type 4 Not Detected (NOT DETECT); Respiratory Syncytial Virus A Not Detected (NOT DETECT); Respiratory Syncytial Virus B Not Detected (NOT DETECT); SARS-COV-2 Not Detected (NOT DETECT)
[2022-04-18 20:33] LABS: Urine Appearance SL Hazy (CLEAR); Urine Color Yellow (Yellow)
[2022-04-18 20:34] LABS: Add Urine Microscopic? YES; Bilirubin Urine 1+ (Negative); Blood Urine Neg (Negative); Glucose Urine UA Norm (Normal); Ketones Urine Negative (Negative); Leukocyte Esterase Urine Negative (Negative); Nitrate Urine Negative (Negative); Protein Urine Trace (Negative); Specific Gravity, Urine 1.025 (1.005-1.030); Urobilinogen Urine Norm (Negative); pH Urine 5 (5-7)
[2022-04-18 20:35] LABS: Bacteria Urine TRACE /hpf; Hyaline Casts Urine 25-40 /lpf; Squamous Epithelial Cell Urine 0-4 /hpf (0-5); WBC Urine 0-4 /hpf (0-5)
[2022-04-18 20:36] LABS: Calcium Oxalate Crystals Urine 0-4 /hpf; Renal Epithelial Cells Urine 0-4 /hpf
[2022-04-18 21:04] LABS: Lactic Acid level (Lactate) 2.9 mmol/L (0.5-2.2)
--- NOTE | 2022-04-18 21:12 | USCV_ITS ---
Transthoracic Echo Renetta Lazaro Age: 76 Gender: F : 1945 Exam Date: 04/18/2022 23:09 Ordering Phys: Mina Friedman MD Technologist: SUSAN Exam Location: [facility] [place] Indication: beast CA mets to liver and bone. CHF? HYPOXIA 87- 88%. Pt is unresponsive on CPAP in ICU-11 BP: 100 / 74 HR: 89 Rhythm: Sinus Technical Quality: Technically difficult study; no parasternals, low-lying heart, left pleural effusion MEASUREMENTS (Male / Female) Normal Values 2D ECHO LV Diastolic Diameter PLAX 3.3 cm 4.2 - 5.9 / 3.9 - 5.3 cm LV Systolic Diameter PLAX 1.9 cm IVS Diastolic Thickness 1.4 cm 0.6 - 1.0 / 0.6 - 0.9 cm IVS Systolic Thickness 1.4 cm LVPW Diastolic Thickness 1.5 cm 0.6 - 1.0 / 0.6 - 0.9 cm LVPW Systolic Thickness 1.4 cm LVOT Diameter 2.2 cm LV Ejection Fraction 2D Teich 75.0 % LA Diameter 2.8 cm LA Width 2.0 cm LA Height 6.0 cm RA Width 5.2 cm RA Height 5.4 cm Aorta at Sinotubular Diameter 3.6 cm IVC Diameter 1.9 cm M-MODE Aortic Annulus Diameter 4.3 cm LA Ao Ratio MM 0.7 DOPPLER AV Peak Velocity 83.0 cm/s LVOT Peak Velocity 73.0 cm/s AV Area Cont Eq vti 3.2 cm squared AV Area Cont Eq pk 3.4 cm squared MV Peak Velocity 93.0 cm/s MV Area PHT 4.3 cm squared Mitral E to A Ratio 0.6 MV E' Velocity 24.5 cm/s Mitral E to MV E' Ratio 6.5 Mitral E to LV E' Lateral Ratio 5.0 Mitral E to LV E' Septal Ratio 9.3 TR Peak Velocity 239.0 cm/s TR Peak Gradient 22.8 mmHg TV Peak E Velocity 67.0 cm/s Right Atrial Pressure 5.0 mmHg Pulmonary Artery Systolic Pressu 27.8 mmHg PV Peak Velocity 84.0 cm/s FINDINGS Left Ventricle Examination is technically very poor with limited views available. The ventricle is probably normal in size and function. Diastolic function cannot be determined. The ejection fraction is at least lower limit of normal. Right Ventricle Normal right ventricular size and systolic function. Normal right ventricular systolic pressure. Right Atrium Right atrium not well visualized. Left Atrium Left atrium not well visualized. Mitral Valve The valve is poorly seen. There is no obvious stenosis or regurgitation. Aortic Valve The valve is poorly seen. There is no obvious aortic stenosis. There is probably trace to mild aortic insufficiency. Tricuspid Valve Tricuspid valve not well visualized. Pulmonic Valve Pulmonic valve not well visualized. Pericardium There is no pericardial effusion. There appears, in 1 view, to be a pleural effusion. Aorta Aorta not well visualized. IVC Inferior vena cava not visualized. CONCLUSIONS Examination is technically very poor with limited views available. The ventricle is probably normal in size and function. Diastolic function cannot be determined. The ejection fraction is at least lower limit of normal. The valve is poorly seen. There is no obvious aortic stenosis. There is probably trace to mild aortic insufficiency. There are no prior echocardiogram studies to compare. Dr. Rufus Chapman MD (Electronically Signed) Final Date: 19 April 2022 09:40 S
[2022-04-18 21:32] LABS: Troponin(5th) Baseline 63 ng/L (0-10)
[2022-04-18] MEDS: vancomycin 1,000 MG in sodium chloride 0.9% 250 ML 250 MG IV (21:44)
[2022-04-18] MEDS: sodium chloride 0.9% 1,000 ML 100 ML IV (21:44)
[2022-04-18] MEDS: pantoprazole 40 mg SDV IVP (21:44)
[2022-04-18] MEDS: enoxaparin 40 mg/0.4 mL Syringe SUBCUT (21:44)
[2022-04-18 23:24] LABS: Troponin 5 2HR 65.53 ng/L (0-10)
[2022-04-18 23:26] LABS: Troponin 5 2HR Delta 2.53 ABS# (0-10)
[2022-04-19] VITALS (127 sets, daily range): BP systolic 78–118; BP diastolic 53–87; PULSE 80–114; RESP 12–33; TEMP 36.6; O2SAT 86–100; BMI 28.6
--- NOTE | 2022-04-19 01:50 | ECG_ITS ---
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 Measurements Intervals [place] Rate: 84 P: 40 [place]: 196 QRS: 6 QRSD: 103 T: 56 QT: 344 QTc: 407 Interpretive Statements SINUS RHYTHM LOW QRS VOLTAGE [QRS DEFLECTION < 0.5/1.0 mV IN LIMB/CHEST LEADS] Compared to ECG 04/18/2022 20:23:14 Myocardial infarct finding no longer present Electronically Signed On 04-19-2022 16:18:00 BAG PRESSER by Rufus Chapman M.D. [id number]
[2022-04-19 03:03] LABS: Basophils % 0.1 %; Eosinophils % 0.1 %; Hematocrit 36.1 % (37.0-47.0); Hemoglobin 11.5 g/dL (11.5-15.3); Lymphocytes # 0.7 10^3/uL (0.8-4.8); Lymphocytes % 5.8 %; Mean Corpuscular HGB Conc 31.9 g/dL (30.0-36.0); Mean Corpuscular Hemoglobin 30.3 pg (28.0-34.0); Mean Corpuscular Volume 95.3 fl (81-99); Mean Platelet Volume 10.2 fL (7.4-10.4); Monocytes # 0.6 10^3/uL (0.2-0.9); Monocytes % 5.1 %; Neutrophils # 9.78 10^3/uL (1.8-7.7); Neutrophils % 87.6 %; Nucleated Red Blood Cells % 0 %; Platelet Count 114 10^3/cmm (130-400); Red Blood Count 3.79 10^6/uL (4.1-5.3); White Blood Count 11.2 10^3/uL (4.0-10.0)
[2022-04-19 03:22] LABS: Ammonia 49 umol/L (11-51)
[2022-04-19 03:24] LABS: Troponin 5 6HR 66.08 ng/L (0-10)
[2022-04-19 03:31] LABS: Alanine Aminotransferase 10 U/L (0-33); Albumin Level 2.2 g/dL (3.5-5.2); Alkaline Phosphatase 126 U/L (35-105); Anion Gap 18.6 (5-19); Aspartate Amino Transferase 30 U/L (0-32); Blood Urea Nitrogen 56 mg/dL (8-23); Calcium 11.3 mg/dL (8.5-10.5); Carbon Dioxide 19 mmol/L (22-29); Chloride 103 mmol/L (98-107); Globulin 2.4 g/dL (1.3-4.6); Glucose 90 mg/dL (65-115); Magnesium 2.1 mg/dL (1.7-2.3); Osmolality Calculated 297 mOsm/kg (285-295); Potassium 4.6 mmol/L (3.5-5.1); Sodium 136 mmol/L (136-145); Total Bilirubin 0.5 mg/dL (0.15-1.2); Total Protein 4.6 g/dL (6.6-8.7)
[2022-04-19 03:33] LABS: Troponin 5 6HR Delta 3.08 ng/L (0-12)
[2022-04-19] MEDS: meropenem 1,000 MG in sodium chloride 0.9% (plus) 50 ML 100 MG IV ×2 (06:37→19:12)
[2022-04-19] MEDS: sodium chloride 0.9% 1,000 ML 100 ML IV (07:49)
[2022-04-19] MEDS: calcitonin,salmon 200 unit/mL SDV 2mL 288 UNIT SUBCUT ×2 (10:39→19:12)
--- NOTE | 2022-04-19 11:16 | CT_ITS ---
WS: [id number] CT HEAD WITH AND WITHOUT CONTRAST HISTORY: Lethargy, metastatic cancer TECHNIQUE: Noncontrast 2.5 mm axial images obtained from the vertex to the skull base. Additional serjio ging performed at 2.5 mm axial images status post IV contrast. Bone and soft tissue windows are revie wed. All CT scans at [facility] use at least one of these dose optimization techniques: autom ated exposure control; mA and/or kV adjustment per patient size (includes targeted exams where dose i s matched to clinical indication); or iterative reconstruction. CONTRAST: Omnipaque 350; 95 mL IV. DLP: 4449.38 mGy.cm COMPARISON: 04/04/2022 Quality of this examination is compromised by motion artifact despite repeated attempts. Moderate atrophy with small vessel ischemic disease. No midline shift. Subtle areas of attenuation or sulcal effacement would be obscured with this amount of motion. On the postcontrast imaging no masses are identified. Small metastatic sites may be obscured by the a mount of motion. No midline shift. Dural venous sinuses are normally enhancing. Visualized manzanita of Sánchez is unremarkable. Paranasal sinuses as visualized: Clear. Mastoid air cells: Clear. Calvarium and scalp: Intact. CT/CT head wo/w con [id number] IMPRESSION: 1. No acute intracranial hemorrhage or edema. 2. Study is compromised by motion artifact. 3. No metastatic lesions are identified. 4. Moderate atrophy and small vessel ischemic disease.
--- NOTE | 2022-04-19 11:18 | USCV_ITS ---
Iveth Renetta Age: 76 Gender: F : 1945 Exam Date: 04/19/2022 11:38 Ordering Phys: Mina Friedman MD Technologist: [place] [facility] [place]: swellimg/pe PROCEDURES: Comparison:. 04/13/22 The venous duplex Doppler examination of both lower extremities was performed in the standard fashion. In addition, the posterior tibial and peroneal trunk were evaluated. FINDINGS: Acute, bilateral deep vein thrombosis of the popliteal veins extending into the peroneal veins. New acute left deep profunda DVT. Remaining veins are negative. CONCLUSIONS New, occlusive, bilateral acute DVT popliteal veins extending into the peroneal veins. Left profunda acute DVT. Dr. Martine Bishop DO (Electronically Signed) Final Date: 19 April 2022 12:42 S
--- NOTE | 2022-04-19 11:41 | PC.CHAP ---
Pastoral Care Encounter/Spiritual Assessment Type of Contact [] Declined perishable freight inspector visit [] Patient/Family/Request visit [] Outpatient visit [] Follow-up visit [] Physician referral [] Code/Alert [x] Routine visit [] Staff referral [] Actively dying [] Patient sleeping [x] Family support [] [] Out of room [] Palliative care [] [x] Receiving care in room [] Pre-surgical visit [] Trauma [] Long length of stay [x] ICU visit [x] Other: staff present Relational/Emotional Strength [] Patient feels connected with others/family/visitors/staff [] Distress [] Loneliness/isolation [] Abandonment Spirituality of Patient [] Person of Ratna [] Attends Lutheran of their Ratna [] Believes in Prayer [] Reads Bible or Scientologist materials [] There are Spiritual issues to be addressed Manager Workers Compensation Interventions [x] Prayer [] Active listening [] Non-anxious presence [] Spiritual/emotional support [] Crisis/trauma care [] Spiritual counseling [] Bereavement support [] Provided bereavement packet [] Provided Bible/devotional materials [] Provided toy/stuffed animal, coloring book to patient or family member [] Provided Communion [] Anointing/Flora [] Salvation [x] Completed spiritual assessment [] Other: Impact on Illness or Injury [] Angry [] Fearful [] Anxious [] Often cries [] Exhaustion [] Unable to work [] Unable to attend christianity [] Unable to walk/stand [] Unable to read [] Unable to drive [] Unable to eat/drink [] Unable to sleep [] Unable to be with family [] Patient intubated [] Other: Summary Time spent with patient
--- NOTE | 2022-04-19 15:15 | P.PN_ITS ---
Subjective Subjective: She appears little bit stronger, little bit more alert, today, but still feels asleep easily. Still generally weak. At times difficult to understand. She does wake up enough to tell that she is uncomfortable any pain or discomfort currently. She is not sure whether she is coughing, but has not been symptomatic so. Her daughter tells me she is asking for [employer]. Discussed with her and her daughter additional finding of PE on CTA. Discussed additional treatment with anticoagulation, however, also with risk of bleeding given widely metastatic disease. Discussed also suspected congestive heart failure on presentation with JVD, lower extremity edema, crackles on exam. Unknown underlying cardiac function. Discussed obtaining NIYAH. Discussed suspected pneumonia noted on CTA and right lower lobe. Discussed continuation of antibiotic therapy. On discussion of overall condition and prognosis discussed she has shown some improvement, but unfortunately she is very weak and with widely metastatic cancer. Daughter asks if she will be seen here by oncology and received chemotherapy. Discussed with her that in her current condition she is not a candidate at this time for chemotherapy. This will need to be considered after recovery from acute illness and her functional status. The discussion was interrupted as she began recalling her relatives. Returning to code status the patient currently is not alert enough to give us her wishes as she currently is unable to continue to stay awake to precipitate in the discussion. Discussion with her daughter patient's granddaughter sitting behind the mother is her power of workers compensation defense attorney which daughter states was done to avoid conflict between her and her brother. She states that seeing another relative go through resuscitation patient had previously stated that she would want to receive in case of cardiopulmonary arrest. However, as discussed with her that this was also before the diagnosis of severe and recent overall decline in her health. Discussed CODE STATUS and goals of care would benefit from being revisited again once she is more alert. At this time they want to continue with CODE STATUS as currently. Discussed additional assessment with head CT, as well as subsequently discussed anticoagulation, as well as assessment of duplex ultrasound lower extremities. Vitals/I&O/Wt Last Vital Signs Temp 98.1 F 04/18/22 20:53 Pulse 103 H 04/19/22 14:00 Resp 14 04/19/22 14:00 BP 113/78 04/19/22 13:00 Pulse Ox 92 04/19/22 14:00 O2 Del Method 04/19/22 14:00 O2 Flow Rate 5 04/19/22 14:00 FiO2 50 04/19/22 08:30 04/19/22 04/19/22 04/19/22 06:59 14:59 22:59 Intake Total 1050 / 1050 Output Total 150 / 150 Balance -150 / 1150 1050 / 1050 Weight last 48 hrs Weight 80.558 kg Weight 80.558 kg Weight 72.575 kg Physical Exam Narrative: Daughter at her bedside and granddaughter in the room as well. Const: COMMON NORMALS: patient oriented x3 and alert GENERAL APPEARANCE: cooperative and lethargic (Wakes up to voice.) ORIENTATION/CONSCIOUSNESS: Yes awake and Yes lethargic (Wakes up to voice.) HENMT: COMMON NORMALS: oropharynx normal Neck/C-Spine: OTHER: JVD improved. Resp: COMMON NORMALS: normal respiratory effort and clear to auscultation bilaterally AUSCULTATION: clear to auscultation bilaterally and crackles Laterality: right (base) Cardio: COMMON NORMALS: regular rhythm, S1 normal heart sound present, S2 normal heart sound present and No murmurs present (Cardio) RHYTHM: regular rhythm HEART SOUNDS: S1 normal heart sound present and S2 normal heart sound present GI: COMMON NORMALS: Normal to inspection, nondistended, normoactive bowel sounds present, Soft to palpation and non-tender PALPATION: Yes Soft to palpation Extremity: COMMON NORMALS: no joint enlargement and no pedal edema GENERAL: Yes edema (2+) Neuro: COMMON NORMALS: patient oriented x3 and moves all extremities SENSORIUM/ORIENTATION: Yes alert and Yes lethargic (Wakes up to voice.) Skin: COMMON NORMALS: no rashes or lesions noted GENERAL SKIN EXAM: no rashes or lesions noted Urinary Catheter Management: Bazzi: Cath Placed During This Visit: no Data 04/19/22 02:07 04/19/22 02:07 Micro: Microbiology 04/18/22 15:37 Blood Culture - Preliminary Blood SPECIMEN COLLECTED 04/18/22 15:49 Blood Culture - Preliminary Blood SPECIMEN COLLECTED A&P Assessment and plan (1) Acute respiratory failure with hypoxia: With improvement, weaned off BiPAP. Doing well on 5 L nasal cannula oxygen so far. Discussed with her and her family results of CTA, with suspicion of right lower lobe pneumonia. As well as today we were notified on updated results with also finding of segmental and subsegmental PE in bilateral upper lobes. Change Lovenox to anticoagulation with heparin. Discussed risk of bleeding. With widely metastatic disease assessed additionally CT head with IV contrast, no obvious brain metastatic disease. Echocardiogram very poor quality study. Appears may be normal ejection fraction, diastolic function cannot be determined. Valves poorly visualized, no obvious aortic stenosis. Probably trace to mild aortic insufficiency. Last night received a dose of 20 mg IV Lasix and appears with response today with improving oxygenation, also resolution of JVD. Given bilateral PE, soft blood pressure for now hold off additional Lasix, reassess volume status and hemodynamic condition. Continue empiric antibiotic coverage for pneumonia. Empirically started on Primaxin (2) Acute encephalopathy: She is somewhat lethargic muscles secondary to pneumonia, hypoxia. No hypercapnia. Acute metabolic encephalopathy secondary to hypercalcemia. As below. Normal ammonia. (3) ROSALIA (acute kidney injury): Cr 1.3. Received fluid challenge. Hold off further IV fluid due to PE. Questionably received 20 mg IV Lasix. Reassess renal function. (4) Pneumonia: Right basilar opacity. Suspected possible pneumonia. She has not been coughing much, her, with leukocytosis, hypoxia. COVID-19 PCR pending. No PE. Miranda, vancomycin. (5) Hypercalcemia: In the setting of metastatic malignant to bone. Received fluid challenge. In setting of PEs, concern for CHF hold off additional IV fluid. Creatinine relatively steady at 1.3. Discussed with oncology, will give sodium pamidronate at somewhat lower dose 60 mg over 6 hours. Add also Solu-Medrol. Reassess calcium. Plan Hyponatremia: Mild hyponatremia currently appears to be at baseline. Metastatic adenocarcinoma, unknown primary. 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 Coding Level of Care Code Acute Social Media Marketing Analyst for Justin Fwd Exam Comprehensive Diagnoses Acute respiratory failure with hypoxia J96.01 Acute encephalopathy G93.40 ROSALIA (acute kidney injury) N17.9 Pneumonia J18.9 Hypercalcemia E83.52
[2022-04-19 17:01] LABS: Partial Thromboplastin Time 21.2 SECONDS (23.9-36.7)
[2022-04-19] MEDS: heparin drip 25,000 UNIT/500 ML PREMIX 22 UNIT IV (17:08)
[2022-04-19] MEDS: pantoprazole 40 mg SDV IVP (21:00)
[2022-04-19] MEDS: vancomycin 1,000 MG in sodium chloride 0.9% 250 ML 250 MG IV (21:19)
[2022-04-19] MEDS: dexmedetomidine 400 MCG in sodium chloride 0.9% (100 ml) 100 ML IV (21:21)
[2022-04-20] VITALS (92 sets, daily range): BP systolic 68–127; BP diastolic 51–87; PULSE 74–119; RESP 13–35; TEMP 36.9; O2SAT 88–99
[2022-04-20 00:13] LABS: Partial Thromboplastin Time 25.2 SECONDS (23.9-36.7)
[2022-04-20] MEDS: heparin 5,000 unit/mL INJ 1 mL IV (00:48)
--- NOTE | 2022-04-20 01:17 | ECG_ITS ---
[facility] Test Date: 2022-04-20 Pat Name: Renetta Lazaro Department: Room: ICU11 Gender: Female Headwaitress: : 1945 Requested By: Peter Cortes Order Number: [id number] Zaida MD: Josef Barrera M.D. Measurements Intervals [place] Rate: 88 P: 70 TX: 194 QRS: 7 QRSD: 103 T: 30 QT: 342 QTc: 415 Interpretive Statements SINUS RHYTHM Compared to ECG 04/19/2022 02:31:18 No significant changes Electronically Signed On 04-20-2022 10:15:21 GARDENING INSTRUCTOR by Josef Barrera M.D. [id number]
[2022-04-20] MEDS: sodium chloride 0.9% 500 ML 999 ML IV (01:51)
[2022-04-20 04:16] LABS: Basophils % 0.1 %; Hematocrit 36.1 % (37.0-47.0); Hemoglobin 11.2 g/dL (11.5-15.3); Lymphocytes # 0.7 10^3/uL (0.8-4.8); Lymphocytes % 3.7 %; Mean Corpuscular Hemoglobin 30.4 pg (28.0-34.0); Mean Corpuscular Volume 97.8 fl (81-99); Mean Platelet Volume 9.9 fL (7.4-10.4); Monocytes # 0.5 10^3/uL (0.2-0.9); Monocytes % 2.7 %; Neutrophils # 16.49 10^3/uL (1.8-7.7); Neutrophils % 92.3 %; Nucleated Red Blood Cells % 0 %; Platelet Count 133 10^3/cmm (130-400); Red Blood Count 3.69 10^6/uL (4.1-5.3); Red Cell Distribution Width 16.7 % (12.1-15.1); White Blood Count 17.9 10^3/uL (4.0-10.0)
[2022-04-20 04:34] LABS: Alanine Aminotransferase 13 U/L (0-33); Albumin Level 2.4 g/dL (3.5-5.2); Alkaline Phosphatase 128 U/L (35-105); Anion Gap 23.2 (5-19); Aspartate Amino Transferase 34 U/L (0-32); Blood Urea Nitrogen 68 mg/dL (8-23); Calcium 10.5 mg/dL (8.5-10.5); Carbon Dioxide 14 mmol/L (22-29); Chloride 106 mmol/L (98-107); Globulin 2.5 g/dL (1.3-4.6); Glucose 110 mg/dL (65-115); Osmolality Calculated 306 mOsm/kg (285-295); Potassium 5.2 mmol/L (3.5-5.1); Sodium 138 mmol/L (136-145); Total Bilirubin 0.5 mg/dL (0.15-1.2); Total Protein 4.9 g/dL (6.6-8.7)
[2022-04-20 04:47] LABS: Creatinine Clr Calc Pharmacy 32.5185
[2022-04-20 05:02] LABS: Partial Thromboplastin Time 241.9 SECONDS (23.9-36.7)
--- NOTE | 2022-04-20 05:14 | PC.NURSE ---
Pt's 0400 ptt critical. Results received at 0500. Heparin gtt stopped. Orders received from Dr. Cortes to hold heparin gtt for 4hr then decrease rate by 2mLs/hr.
[2022-04-20] MEDS: meropenem 1,000 MG in sodium chloride 0.9% (plus) 50 ML 100 MG IV ×2 (06:02→17:56)
[2022-04-20] MEDS: calcitonin,salmon 200 unit/mL SDV 2mL 288 UNIT SUBCUT (10:26)
[2022-04-20] MEDS: lanolin oint 7 gm 1 APPLIC TOPICAL (10:37)
--- NOTE | 2022-04-20 11:08 | PM.PN ---
Subjective Subjective: Renetta is sleepy but arousable. It does not appear like she is in any discomfort. History and physical, and daily progress notes were reviewed. Nurse alerts me that she just vomited x1, yellowish material. Medications: Reviewed: Yes Vitals/I&O/Wt Last Vital Signs Temp 98.5 F 04/20/22 09:00 Pulse 85 04/20/22 09:00 Resp 24 H 04/20/22 09:00 BP 96/66 04/20/22 09:00 Pulse Ox 95 04/20/22 09:00 O2 Del Method 04/20/22 09:00 O2 Flow Rate 3 04/20/22 09:00 FiO2 45 04/20/22 07:46 04/19/22 04/20/22 04/20/22 22:59 06:59 14:59 Intake Total 1360 / 2410 1323.2677 / 3733.2677 50 / 50 Output Total 600 / 600 100 / 700 Balance 760 / 1810 1223.2677 / 3033.2677 50 / 50 Weight last 48 hrs Weight 85.275 kg Weight 80.558 kg Weight 80.558 kg Weight 72.575 kg Physical Exam Narrative: General exam is white female, no distress, somewhat confused but arousable and can say few words Neck is supple no lymphadenopathy thyromegaly Cardiovascular regular rate and rhythm, no murmur Lungs clear but with diminished breath sounds at the bases Abdomen slightly distended. Positive bowel sounds. Extremities 2+ edema Urinary Catheter Management: Bazzi: Cath Placed During This Visit: yes Reason for Continuing Indwelling Catheter: Acute Urinary Retention or Obstruction Urinary Catheter Date of Insertion: 04/18/22 Urinary Catheter Time of Insertion: 18:39 Data 04/20/22 03:50 04/20/22 03:50 Micro: Microbiology 04/18/22 15:37 Blood Culture - Preliminary Blood NEGATIVE TO DATE 04/18/22 15:49 Blood Culture - Preliminary Blood NEGATIVE TO DATE A&P Assessment and plan (1) Acute respiratory failure with hypoxia: CTA demonstrated PE Currently on 3 L of oxygen Continue heparin drip. Lovenox contraindicated secondary to renal dysfunction Significant risk of bleeding with widespread metastatic disease, family has been informed Echocardiogram demonstrated preserved ejection fraction Potassium slightly high Reinitiate low-dose IV fluids, 30 cc an hour Continue empiric vancomycin and meropenem. (2) Acute encephalopathy: She is somewhat lethargic muscles secondary to pneumonia, hypoxia. No hypercapnia. Acute metabolic encephalopathy secondary to hypercalcemia. Normal ammonia. Per medronate given yesterday (3) ROSALIA (acute kidney injury): Creatinine 1.6 today. Continue Bazzi. (4) Pneumonia: Right basilar opacity. Suspected possible pneumonia. COVID PCR negative Continue vancomycin and meropenem Miranda, vancomycin. (5) Hypercalcemia: Creatinine worse Restart fluid, low rate Medronate received yesterday Continue Solu-Medrol Plan Hyponatremia: Currently normal Metastatic adenocarcinoma, unknown primary. 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
[2022-04-20] MEDS: ondansetron 2 mg/ML SDV 2 mL 4 MG IVP (11:13)
[2022-04-20 11:15] LABS: Partial Thromboplastin Time 28.6 SECONDS (23.9-36.7)
[2022-04-20] MEDS: sodium chloride 0.9% 1,000 ML 30 ML IV (11:49)
[2022-04-20 18:07] LABS: Potassium 5.4 mmol/L (3.5-5.1)
[2022-04-20] MEDS: sodium polystyrene sulfonate 15 gm/60 mL Btl 30 GM PR (18:46)
[2022-04-20 19:38] LABS: Partial Thromboplastin Time 84.2 SECONDS (23.9-36.7)
[2022-04-20] MEDS: pantoprazole 40 mg SDV IVP (20:53)
[2022-04-20] MEDS: vancomycin 1,000 MG in sodium chloride 0.9% 250 ML 250 MG IV (20:53)
[2022-04-20] MEDS: morphine 4 mg/mL SDV 1 mL 2 MG IVP (22:31)
[2022-04-20] MEDS: heparin drip 25,000 UNIT/500 ML PREMIX 22 UNIT IV (22:43)
[2022-04-21] VITALS (38 sets, daily range): BP systolic 80–137; BP diastolic 46–112; PULSE 88–118; RESP 13–28; TEMP 36.5–36.9; O2SAT 88–99
[2022-04-21 02:42] LABS: Basophils % 0.1 %; Hematocrit 36.8 % (37.0-47.0); Hemoglobin 11.5 g/dL (11.5-15.3); Lymphocytes # 0.6 10^3/uL (0.8-4.8); Lymphocytes % 2.6 %; Mean Corpuscular HGB Conc 31.3 g/dL (30.0-36.0); Mean Corpuscular Hemoglobin 30.7 pg (28.0-34.0); Mean Corpuscular Volume 98.1 fl (81-99); Mean Platelet Volume 9.7 fL (7.4-10.4); Monocytes # 0.5 10^3/uL (0.2-0.9); Monocytes % 2.5 %; Neutrophils # 19.47 10^3/uL (1.8-7.7); Neutrophils % 93.6 %; Nucleated Red Blood Cells % 0.1 %; Platelet Count 141 10^3/cmm (130-400); Red Blood Count 3.75 10^6/uL (4.1-5.3); Red Cell Distribution Width 17.2 % (12.1-15.1); White Blood Count 20.8 10^3/uL (4.0-10.0)
[2022-04-21 03:02] LABS: Partial Thromboplastin Time 81.6 SECONDS (23.9-36.7)
[2022-04-21 03:05] LABS: Alanine Aminotransferase 15 U/L (0-33); Albumin Level 2.6 g/dL (3.5-5.2); Alkaline Phosphatase 138 U/L (35-105); Anion Gap 23.4 (5-19); Aspartate Amino Transferase 39 U/L (0-32); Blood Urea Nitrogen 80 mg/dL (8-23); Calcium 10.2 mg/dL (8.5-10.5); Carbon Dioxide 16 mmol/L (22-29); Chloride 105 mmol/L (98-107); Globulin 2.7 g/dL (1.3-4.6); Glucose 115 mg/dL (65-115); Osmolality Calculated 313 mOsm/kg (285-295); Potassium 5.4 mmol/L (3.5-5.1); Sodium 139 mmol/L (136-145); Total Bilirubin 0.4 mg/dL (0.15-1.2); Total Protein 5.3 g/dL (6.6-8.7)
--- NOTE | 2022-04-21 05:59 | PC.NURSE ---
0520 patient's UOP decreased from prior shift (only 50 mL out for current shift); bladder scan performed (showing 851 mL of urine in bladder) 0525 attempted to flush lovell catheter; leaking noted around catheter 0530 lovell catheter discontinued using aseptic technique 0550 multiple attempts by 2 different nurses with 16 palauan and 14 palauan lovell catheters; all attempts unsuccessful due to unexplained resistance 0600 Dr. Hamilton contacted about patient's urinary retention and failed lovell catheter attempts; Dr. Marcum consulted
[2022-04-21] MEDS: sodium polystyrene sulfonate 15 gm/60 mL Btl PR (06:18)
[2022-04-21] MEDS: meropenem 1,000 MG in sodium chloride 0.9% (plus) 50 ML 100 MG IV (06:18)
[2022-04-21] MEDS: calcitonin,salmon 200 unit/mL SDV 2mL 288 UNIT SUBCUT (11:08)
--- NOTE | 2022-04-21 11:17 | US_ITS ---
WS: [id number] Limited abdomen ultrasound, 04/21/2022 Clinical Data: assess for ascites Comparison: None. Findings: There is a moderate amount of fluid throughout the abdomen. All 4 quadrants demonstrated ascites. US/US abdomen limited [id number] Impression: Moderate abdominal ascites.
--- NOTE | 2022-04-21 11:18 | US_ITS ---
WS: [id number] Bilateral renal ultrasound, 04/21/2022 Clinical Data: ROSALIA Comparison: CT abdomen pelvis, 04/04/2022 Findings: The right kidney measures 9.7 cm x 3.7 cm x 3.6 cm and the left kidney is 11.0 cm x 3.7 cm x 4.2 cm. There are no cysts, masses or hydronephrosis. The renal cortical margin is normal. No renal calculi a re seen. The liver adjacent to the right kidney shows multiple areas of mixed echotexture consistent with metastatic disease. The abdominal aorta was difficult to image. There is a catheter within the bladder. US/US renal BI* [id number] Impression: Negative bilateral renal ultrasound.
--- NOTE | 2022-04-21 12:01 | P.PN_ITS ---
Subjective Subjective: She is sleepy, but wakes up, states she does not have any pain, denies trouble breathing. Denies abdominal or suprapubic pain or discomfort. Medications: Reviewed: Yes Vitals/I&O/Wt Last Vital Signs Temp 97.8 F 04/21/22 08:00 Pulse 99 04/21/22 09:00 Resp 27 H 04/21/22 09:00 BP 110/74 04/21/22 09:00 Pulse Ox 94 04/21/22 09:00 O2 Del Method 04/21/22 04:00 O2 Flow Rate 3 04/21/22 04:00 FiO2 45 04/21/22 00:00 04/20/22 04/21/22 04/21/22 22:59 06:59 14:59 Intake Total 662.778 / 712.778 73.345 / 786.123 958.733 / 958.733 Output Total 300 / 500 50 / 550 Balance 362.778 / 212.778 23.345 / 236.123 958.733 / 958.733 Weight last 48 hrs Weight 84 kg Weight 85.275 kg Physical Exam Const: GENERAL APPEARANCE: cooperative and lethargic ORIENTATION/CONS CIOUSNESS: Yes lethargic HENMT: COMMON NORMALS: oropharynx normal Neck/C-Spine: COMMON NORMALS: no JVD Resp: COMMON NORMALS: normal respiratory effort and clear to auscultation bilaterally AUSCULTATION: clear to auscultation bilaterally Cardio: COMMON NORMALS: no JVD, regular rhythm, S1 normal heart sound present, S2 normal heart sound present and No murmurs present (Cardio) RHYTHM: regular rhythm HEART SOUNDS: S1 normal heart sound present and S2 normal heart sound present GI: COMMON NORMALS: Normal to inspection, nondistended, normoactive bowel sounds present, Soft to palpation and non-tender PALPATION: Yes Soft to palpation Extremity: COMMON NORMALS: no joint enlargement GENERAL: Yes edema (2+) Neuro: COMMON NORMALS: moves all extremities SENSORIUM/ORIENTATION: Yes lethargic Skin: COMMON NORMALS: no rashes or lesions noted GENERAL SKIN EXAM: no rashes or lesions noted Urinary Catheter Management: Bazzi: Cath Placed During This Visit: yes, but has since been removed by the nurse Reason for Continuing Indwelling Catheter: Decision to DC Catheter Urinary Catheter Date of Insertion: 04/18/22 Urinary Catheter Time of Insertion: 18:39 Date Urinary Catheter Removed: 04/21/22 Time Urinary Catheter Discontinued: 05:30 Data 04/21/22 02:33 04/21/22 02:33 A&P Assessment and plan (1) ROSALIA (acute kidney injury): Hypercalcemia on presentation. Renal function continually worsening. Creatinine up to 2. Bladder scan appeared to be revealing 850 mL. Bazzi catheter was removed, but then difficulty reinserting another. Was seen by urology. Catheter placed, still without much output. But with noted worsening renal function. Suspect the results were secondary to ascites, will assess limited abdominal ultrasound. Additionally assess ultrasound kidneys and bladder. DC IV fluid. Hypokalemia received additional dose of Kayexalate this morning. (2) Acute encephalopathy: Some improvement, but still lethargic. Secondary to pneumonia, hypoxia. No hypercapnia.Acute metabolic encephalopathy secondary to hypercalcemia. Normal ammonia. Calcium improving. (3) Acute respiratory failure with hypoxia: Check MRSA PCR. CTA demonstrated PE Currently on 3 L of oxygen Continue heparin drip. Lovenox contraindicated secondary to renal dysfunction Significant risk of bleeding with widespread metastatic disease, family has been informed Echocardiogram demonstrated preserved ejection fraction Continue empiric vancomycin and meropenem. (4) Pneumonia: Check MRSA PCR. Right basilar opacity. Suspected possible pneumonia. COVID PCR negative Meropenem, vancomycin. (5) Hypercalcemia: Creatinine worse Restart fluid, low rate Medronate received yesterday Continue Solu-Medrol Plan Hyponatremia: Resolved Metastatic adenocarcinoma, unknown primary. 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 Coding Level of Care Code Acute Cnc Machine Programmer for Mandy Kennedy Diagnoses ROSALIA (acute kidney injury) N17.9 Acute encephalopathy G93.40 Acute respiratory failure with hypoxia J96.01 Pneumonia J18.9 Hypercalcemia E83.52
--- NOTE | 2022-04-21 12:51 | PM.CONSULT ---
Providers/Reason For Consult Consulting Physician/Specialty*: Suri Hackett DO, telenephrology Reason for Consult*: Acute kidney injury Requesting Physician: Mina Friedman Attending Physician: Mina Friedman Primary Care Provider: Fco Meyer MD History of Present Illness History of Present Illness Renetta Lazaro is a 76 year old female admitted with altered mental status. Last admission serum Cr 0.5 - 0.6 mg/dL, diagnosed with UTI and diffusely metastatic adenocarcinoma (multiple bone site, liver, lung, ascites). CTA this admission revealed PE. Currently anuric. Bazzi repositioned by urology. Review of Systems General: Reports: ROS unobtainable due to medical condition Medications/Allergies Home Medications Medication Instructions Recorded Confirmed Last Taken Type glucosamine-chondroitin 250 mg-200 1 tab PO DAILY 04/04/22 04/18/22 04/03/22 History mg tablet (Osteo Bi-Flex) levothyroxine 25 mcg tablet 25 mcg PO QAM 30 days #30 tabs 04/14/22 04/18/22 Unknown Rx pantoprazole 40 mg tablet,delayed 40 mg PO DAILY 30 days #30 tabs 04/14/22 04/18/22 Unknown Rx release sodium chloride 1 gram tablet 1 g PO BID 30 days #60 tabs 04/14/22 04/18/22 Unknown Rx acetaminophen 325 mg tablet 650 mg PO QID PRN Pain 04/18/22 04/18/22 Unknown History bisacodyl 10 mg rectal suppository 10 mg ME DAILY PRN Constipation 04/18/22 04/18/22 Unknown History magnesium hydroxide 400 mg/5 mL 30 ml PO Q30H PRN Constipation 04/18/22 04/18/22 Unknown History oral suspension (Milk of Magnesia) polyethylene glycol 3350 17 4 g PO DAILY PRN Constipation 04/18/22 04/18/22 Unknown History gram/dose oral powder (Miralax) sennosides 8.6 mg tablet 8.6 mg PO DAILY PRN Constipation 04/18/22 04/18/22 Unknown History sodium phosphates 19 gram-7 118 ml ME DAILY PRN Constipation 04/18/22 04/18/22 Unknown History gram/118 mL enema (Enema) Allergies Allergy/AdvReac Type Severity Reaction Status Date / Time Penicillins Allergy Intermediate ADR-Dizzine Verified 04/18/22 15:34 ss Current Medications Generic Name Dose Route Start Last Admin Trade Name Freq PRN Reason Stop Dose Admin Calcitonin [place] 288 unit 04/19/22 09:00 04/21/22 11:08 Calcitonin,[place] 200 Unit/Ml Sdv 2ml SUBCUT 288 unit BID RITESH Administration Heparin Sodium (Porcine) 0 unit 04/19/22 14:58 04/20/22 00:48 Heparin 5,000 Unit/Ml Inj 1 Ml IV 4,000 unit PRN PRN Administration Heparin weight-base protocol Protocol Vancomycin HCl 1,000 mg/ 250 mls @ 250 mls/hr 04/18/22 21:30 04/20/22 21:53 Sodium Chloride IV Infused Q24H RITESH Infusion Protocol Meropenem 1,000 mg/ Sodium 50 mls @ 100 mls/hr 04/19/22 07:00 04/21/22 06:49 Chloride IV Infused Q12H RITESH Infusion Heparin Sodium/Sodium Chloride 25,000 unit in 500 mls @ 0 mls/hr 04/19/22 15:00 04/21/22 11:00 Heparin Drip IV 9.93 unit/kg/hr .Q0M RITESH 16 mls/hr Titration Protocol Per Protocol Dexmedetomidine HCl 400 mcg/ 104 mls @ 0 mls/hr 04/19/22 20:45 04/20/22 03:20 Sodium Chloride IV 0 mcg/kg/hr .Q0M RITESH 0 mls/hr Titration Protocol Per Protocol Norepinephrine Bitartrate 4 mg 254 mls @ 0 mls/hr 04/20/22 03:15 04/21/22 02:00 / Dextrose IV 0 mcg/min .Q0M RITESH 0 mls/hr Titration Protocol Per Protocol Lanolin 1 applic 04/19/22 19:38 04/20/22 10:37 Lanolin Oint 7 Gm TOPICAL 1 applic PRN PRN Administration DRYNESS Methylprednisolone Sodium Succinate 40 mg 04/19/22 18:00 04/21/22 09:11 Methylprednisolone Sod Succ 40 Mg/Ml Inj IVP 40 mg Q8H RITESH Administration Ondansetron HCl 4 mg 04/18/22 21:12 04/20/22 11:13 Ondansetron 2 Mg/Ml Sdv 2 Ml IVP 4 mg Q6H PRN Administration NAUSEA AND VOMITING Pantoprazole Sodium 40 mg 04/18/22 21:12 04/20/22 20:53 Pantoprazole 40 Mg Sdv IVP 40 mg Q24H RITESH Administration PFSH Acute PFSH: Medical History (Updated 04/19/22 @ 17:52 by Mina Friedman MD) Cervical radiculopathy Metastatic cancer to bone Metastatic cancer to liver Protein calorie malnutrition Family History Brother Leukemia CAD (coronary artery disease) Social History Smoking and tobacco status: never smoked Vitals/I&O/Wt Last Vital Signs Temp 97.8 F 04/21/22 08:00 Pulse 99 04/21/22 09:00 Resp 27 H 04/21/22 09:00 BP 110/74 04/21/22 09:00 Pulse Ox 94 04/21/22 09:00 O2 Del Method 04/21/22 04:00 O2 Flow Rate 3 04/21/22 04:00 FiO2 45 04/21/22 00:00 04/20/22 04/21/22 04/21/22 22:59 06:59 14:59 Intake Total 662.778 / 712.778 73.345 / 786.123 958.733 / 958.733 Output Total 300 / 500 50 / 550 Balance 362.778 / 212.778 23.345 / 236.123 958.733 / 958.733 Weight last 48 hrs Weight 84 kg Weight 85.275 kg Physical Exam Const: OTHER: lethargic, barely arousable Resp: COMMON NORMALS: clear to auscultation bilaterally AUSCULTATION: clear to auscultation bilaterally Cardio: COMMON NORMALS: regular rate and regular rhythm RATE: regular rate RHYTHM: regular rhythm OTHER: no rub Extremity: GENERAL: Yes edema (2+ bilateral LE) Urinary Catheter Management: Bazzi: Cath Placed During This Visit: yes, but has since been removed by the nurse Reason for Continuing Indwelling Catheter: Decision to DC Catheter Urinary Catheter Date of Insertion: 04/18/22 Urinary Catheter Time of Insertion: 18:39 Date Urinary Catheter Removed: 04/21/22 Time Urinary Catheter Discontinued: 05:30 Data 04/21/22 02:33 04/21/22 02:33 Other Labs: Ca 10.2, albumin 2.6, Ca-125 229 urine sg 1.025, + hyaline casts US: Radiologist's impression: The right kidney measures 9.7 cm x 3.7 cm x 3.6 cm and the left kidney is 11.0 cm x 3.7 cm x 4.2 cm. There are no cysts, masses or hydronephrosis. The renal cortical margin is normal. No renal calculi are seen. The liver adjacent to the right kidney shows multiple areas of mixed echotexture consistent with metastatic disease. The abdominal aorta was difficult to image. There is a catheter within the bladder. + Moderate ascites CTA Chest: Radiologist's impression: 1. Stable hypodense hepatic lesions most consistent with stable hepatic metastasis. 2. Decreased size of 4 mm pulmonary nodule right upper lobe, axial series 7,image 105. Previously this measured 6 mm. Treated pulmonary metastasis versus resolving infectious process. 3. Stable moderate ascites. 4. Stable small right pleural fluid collection. 5. Mild calcified coronary artery disease. 6. Mild right basilar atelectasis and/or pneumonia. 7. No pulmonary embolus or aortic dissection. 8. Right posteroinferior T1 vertebral body lytic bone destruction. 9. Continued extensive lytic bone destruction throughout the sternum. 10. Continued lytic bone destruction in the left posterior T5 vertebral body with destruction of the left T5 pedicle. 11. 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 12. Extensive lytic bone destruction in T9 vertebral body and left T9 pedicle. 13. Lytic bone destruction in the left anterior T11 vertebral body. 14. 4. Stable small right pleural fluid collection. US Vascular: Radiologist's impression: Acute, bilateral? deep vein thrombosis of the? popliteal veins?extending into the peroneal veins. ?New acute left deep profunda DVT. ?Remaining veins are negative. A&P Assessment and plan (1) ROSALIA (acute kidney injury): seen via telemedicine with assistance of RN at bedside Plan 1. Acute anuric kidney injury, multifactorial: prerenal, contrast, unlikely abdominal compartment syndrome 2. high AG metabolic acidosis, hyperkalemia. 3. Diffusely metastatic cancer 4. Encephalopathy 5. Hypercalcemia improved on calcitonin 6. Extensive LE venous thrombosis on IV heparin Recommend: comfort care. not dialysis candidate. I will speak with daughter, grand-daughter (POA) when they are available. Hold vancomycin and dose by level. ROSALIA orders: CK, urine sodium/cr, phos Consult Attestations Medical Necessity Statement: see above Time Spent in Patient Care: 16 - 35 minutes Coding Level of Care Code Acute Embedded Firmware Engineer for Justin Benavides Diagnoses ROSALIA (acute kidney injury) N17.9
--- NOTE | 2022-04-21 14:25 | P.CONIM_ITS ---
Providers/Reason For Consult Consulting Physician/Specialty*: Urology/Marcum Reason for Consult*: Inability to pass catheter Requesting Physician: Dr. Hamilton Attending Physician: Mina Friedman Primary Care Provider: Fco Meyer MD History of Present Illness History of Present Illness Renetta Lazaro is a 76 year old female who I evaluated for the first time in the ICU today at the request of Dr. Hamilton. She had had a catheter placed upon admission and apparently was functioning reasonably well but her urine output started decreasing. Catheter irrigation did not reveal any significant amount of fluid and bladder scan showed about 800 cc. The catheter was removed and attempted to be replaced by the nursing staff but w as unsuccessful. I was consulted. CT scan was reviewed on day of admission and she had a significant mount of ascites. The bladder at that time and not been catheterized and appeared to be normal with a moderate amount of fluid but no evidence of bladder distention. There is no pelvic mass or any evidence of structural abnormality. She was admitted with declining health status and shortness of breath. On a recent hospitalization late last month she was found to have widely metastatic adenocarcinoma involving liver, spine, pulmonary nodules. The liver was the site of the biopsy demonstrating pathology type. She had been discharged to retirement before readmission. PROCEDURE: Difficult Bazzi catheter placement The patient's urethra was easily identified. She was prepped in usual sterile fashion with a couple pillows underneath her sacrum to elevate the pelvis. A 14 Arabic coud? tip catheter was advanced into the urethra. There was resistance but given the CT scan findings it was felt that the resistance was more just a decompressed bladder with altered anatomy secondary to the ascites. The catheter was advanced in an appropriate amount and 10 cc placed in the balloon without difficulty. The catheter was then irrigated with sterile water and was proved to be functioning well. There was virtually no return of urine. It is expected that this finding is teleservices representative of compromised urine output rather than abnormal anatomy. Recommendations: 1. Maintain catheter as long as you prefer under routine conditions. 2. No further urologic work-up is recommended. 3. Call if you have any concerns or questions Review of Systems General: Reports: ROS unobtainable due to mental status Medications/Allergies Home Medications Medication Instructions Recorded Confirmed Last Taken Type glucosamine-chondroitin 250 mg-200 1 tab PO DAILY 04/04/22 04/18/22 04/03/22 History mg tablet (Osteo Bi-Flex) levothyroxine 25 mcg tablet 25 mcg PO QAM 30 days #30 tabs 04/14/22 04/18/22 Unknown Rx pantoprazole 40 mg tablet,delayed 40 mg PO DAILY 30 days #30 tabs 04/14/22 04/18/22 Unknown Rx release sodium chloride 1 gram tablet 1 g PO BID 30 days #60 tabs 04/14/22 04/18/22 Unknown Rx acetaminophen 325 mg tablet 650 mg PO QID PRN Pain 04/18/22 04/18/22 Unknown History bisacodyl 10 mg rectal suppository 10 mg MA DAILY PRN Constipation 04/18/22 04/18/22 Unknown History magnesium hydroxide 400 mg/5 mL 30 ml PO Q30H PRN Constipation 04/18/22 04/18/22 Unknown History oral suspension (Milk of Magnesia) polyethylene glycol 3350 17 4 g PO DAILY PRN Constipation 04/18/22 04/18/22 Unknown History gram/dose oral powder (Miralax) sennosides 8.6 mg tablet 8.6 mg PO DAILY PRN Constipation 04/18/22 04/18/22 Unknown History sodium phosphates 19 gram-7 118 ml MA DAILY PRN Constipation 04/18/22 04/18/22 Unknown History gram/118 mL enema (Enema) Allergies Allergy/AdvReac Type Severity Reaction Status Date / Time Penicillins Allergy Intermediate ADR-Dizzine Verified 04/18/22 15:34 ss Current Medications Generic Name Dose Route Start Last Admin Trade Name Freq PRN Reason Stop Dose Admin Calcitonin [place] 288 unit 04/19/22 09:00 04/21/22 11:08 Calcitonin,[place] 200 Unit/Ml Sdv 2ml SUBCUT 288 unit BID RITESH Administration Heparin Sodium (Porcine) 0 unit 04/19/22 14:58 04/20/22 00:48 Heparin 5,000 Unit/Ml Inj 1 Ml IV 4,000 unit PRN PRN Administration Heparin weight-base protocol Protocol Vancomycin HCl 1,000 mg/ 250 mls @ 250 mls/hr 04/18/22 21:30 04/20/22 21:53 Sodium Chloride IV Infused Q24H RITESH Infusion Protocol Meropenem 1,000 mg/ Sodium 50 mls @ 100 mls/hr 04/19/22 07:00 04/21/22 06:49 Chloride IV Infused Q12H RITESH Infusion Heparin Sodium/Sodium Chloride 25,000 unit in 500 mls @ 0 mls/hr 04/19/22 15:00 04/21/22 11:00 Heparin Drip IV 9.93 unit/kg/hr .Q0M RITESH 16 mls/hr Titration Protocol Per Protocol Dexmedetomidine HCl 400 mcg/ 104 mls @ 0 mls/hr 04/19/22 20:45 04/20/22 03:20 Sodium Chloride IV 0 mcg/kg/hr .Q0M RITESH 0 mls/hr Titration Protocol Per Protocol Norepinephrine Bitartrate 4 mg 254 mls @ 0 mls/hr 04/20/22 03:15 04/21/22 02:00 / Dextrose IV 0 mcg/min .Q0M RITESH 0 mls/hr Titration Protocol Per Protocol Lanolin 1 applic 04/19/22 19:38 04/20/22 10:37 Lanolin Oint 7 Gm TOPICAL 1 applic PRN PRN Administration DRYNESS Methylprednisolone Sodium Succinate 40 mg 04/19/22 18:00 04/21/22 09:11 Methylprednisolone Sod Succ 40 Mg/Ml Inj IVP 40 mg Q8H RITESH Administration Ondansetron HCl 4 mg 04/18/22 21:12 04/20/22 11:13 Ondansetron 2 Mg/Ml Sdv 2 Ml IVP 4 mg Q6H PRN Administration NAUSEA AND VOMITING Pantoprazole Sodium 40 mg 04/18/22 21:12 04/20/22 20:53 Pantoprazole 40 Mg Sdv IVP 40 mg Q24H RITESH Administration PFSH Acute PFSH: Medical History Cervical radiculopathy Metastatic cancer to bone Metastatic cancer to liver Protein calorie malnutrition Family History Brother Leukemia CAD (coronary artery disease) Social History Smoking and tobacco status: never smoked Vitals/I&O/Wt Last Vital Signs Temp 97.7 F 04/21/22 13:56 Pulse 100 04/21/22 13:00 Resp 19 H 04/21/22 13:00 BP 106/77 04/21/22 13:00 Pulse Ox 93 04/21/22 13:00 O2 Del Method 04/21/22 04:00 O2 Flow Rate 3 04/21/22 04:00 FiO2 45 04/21/22 00:00 04/20/22 04/21/22 04/21/22 22:59 06:59 14:59 Intake Total 662.778 / 712.778 73.345 / 786.123 958.733 / 958.733 Output Total 300 / 500 50 / 550 Balance 362.778 / 212.778 23.345 / 236.123 958.733 / 958.733 Weight last 48 hrs Weight 185 lb 3.013 oz Weight 188 lb Physical Exam Const: OTHER: Patient is responsive but is not coherent. Appears to be in discomfort HENMT: COMMON NORMALS: normocephalic HEAD & SCALP: normocephalic Neck/C-Spine: OTHER: Good range of motion Lymph: OTHER: Lower extremity edema Resp: OTHER: Unlabored respiration GI: OTHER: Abdomen is somewhat distended. Soft. Bladder is nonpalpable. : OTHER: Urogenital atrophy. No obvious prolapse. No discharge. Psych: OTHER: Decreased mentation overall Urinary Catheter Management: Bazzi: Cath Placed During This Visit: yes, but has since been removed by the nurse Reason for Continuing Indwelling Catheter: Decision to DC Catheter Urinary Catheter Date of Insertion: 04/18/22 Urinary Catheter Time of Insertion: 18:39 Date Urinary Catheter Removed: 04/21/22 Time Urinary Catheter Discontinued: 05:30 Data 04/21/22 02:33 04/21/22 02:33 A&P Assessment and plan (1) Metastatic cancer to bone: (2) ROSALIA (acute kidney injury): (3) Metastatic cancer to liver: Consult Attestations Medical Necessity Statement: See attending Coding Level of Care Code Acute Transmission And Coordination Engineer for Justin Fwshannon Diagnoses Metastatic cancer to bone C79.51 ROSALIA (acute kidney injury) N17.9 Metastatic cancer to liver C78.7
[2022-04-21] MEDS: ondansetron 2 mg/ML SDV 2 mL 4 MG IVP ×2 (14:45→20:36)
[2022-04-21] MEDS: pantoprazole 40 mg SDV IVP (15:23)
[2022-04-21 17:37] LABS: Partial Thromboplastin Time 63.7 SECONDS (23.9-36.7)
--- NOTE | 2022-04-21 18:30 | PC.NURSE ---
Dr. Arteaga rounded this am and placed a lovell catheter, patient tolerated well. Orders placed to get an ultrasound of abdomen to rule out ascites. Rash noted to be all over patients's chest and back, Dr. Friedman notified. Dr. Friedman reported to bedside to observe rash, medications adjusted. Patient did not have any urine output this shift, Dr. Friedman notified. Patient received a sponge bath and linen change this shift.
[2022-04-21] MEDS: levofloxacin-dextrose 5 % 750 MG/150 ML PREMIX 100 MG IV (20:35)
[2022-04-21] MEDS: morphine 4 mg/mL SDV 1 mL 1 MG IVP (22:25)
[2022-04-22] VITALS (24 sets, daily range): BP systolic 88–113; BP diastolic 62–90; PULSE 93–111; RESP 10–24; TEMP 36.2–36.8; O2SAT 87–97
[2022-04-22 01:28] LABS: Partial Thromboplastin Time 60.3 SECONDS (23.9-36.7)
[2022-04-22] MEDS: famotidine 20 mg/2 mL INJ IVP ×2 (02:37→15:38)
[2022-04-22] MEDS: heparin drip 25,000 UNIT/500 ML PREMIX 16 UNIT IV (02:39)
[2022-04-22 04:56] LABS: Basophils % 0.2 %; Hematocrit 35.8 % (37.0-47.0); Hemoglobin 10.7 g/dL (11.5-15.3); Lymphocytes # 0.3 10^3/uL (0.8-4.8); Lymphocytes % 1.7 %; Mean Corpuscular HGB Conc 29.9 g/dL (30.0-36.0); Mean Corpuscular Hemoglobin 30.2 pg (28.0-34.0); Mean Corpuscular Volume 101.1 fl (81-99); Mean Platelet Volume 9.9 fL (7.4-10.4); Monocytes # 0.5 10^3/uL (0.2-0.9); Monocytes % 2.7 %; Neutrophils # 17.01 10^3/uL (1.8-7.7); Neutrophils % 93.9 %; Nucleated Red Blood Cells % 0 %; Platelet Count 113 10^3/cmm (130-400); Red Blood Count 3.54 10^6/uL (4.1-5.3); Red Cell Distribution Width 17.3 % (12.1-15.1); White Blood Count 18.1 10^3/uL (4.0-10.0)
[2022-04-22 05:23] LABS: Alanine Aminotransferase 14 U/L (0-33); Albumin Level 2.6 g/dL (3.5-5.2); Alkaline Phosphatase 143 U/L (35-105); Anion Gap 23.7 (5-19); Aspartate Amino Transferase 36 U/L (0-32); Calcium 9.8 mg/dL (8.5-10.5); Carbon Dioxide 16 mmol/L (22-29); Chloride 107 mmol/L (98-107); Globulin 2.6 g/dL (1.3-4.6); Glucose 85 mg/dL (65-115); Osmolality Calculated 317 mOsm/kg (285-295); Potassium 5.7 mmol/L (3.5-5.1); Sodium 141 mmol/L (136-145); Total Bilirubin 0.4 mg/dL (0.15-1.2); Total Protein 5.2 g/dL (6.6-8.7)
[2022-04-22 05:26] LABS: Blood Urea Nitrogen 85 mg/dL (8-23)
--- NOTE | 2022-04-22 06:38 | P.PN_ITS ---
Subjective Subjective: lethargic, answers questions remains anuric, intra abdominal pressure 8 mm yesterday Vitals/I&O/Wt Last Vital Signs Temp 97.2 F L 04/22/22 04:00 Pulse 97 04/22/22 06:00 Resp 15 04/22/22 06:00 BP 88/72 04/22/22 06:00 Pulse Ox 92 04/22/22 06:00 O2 Del Method 04/22/22 04:00 O2 Flow Rate 3 04/22/22 04:00 FiO2 45 04/21/22 00:00 04/21/22 04/21/22 04/22/22 14:59 22:59 06:59 Intake Total 958.733 / 958.733 150 / 1108.733 245.767 / 1354.500 Output Total 0 / 0 Balance 958.733 / 958.733 150 / 1108.733 245.767 / 1354.500 Weight last 48 hrs Weight 83.9 kg Weight 84 kg Physical Exam Const: COMMON NORMALS: no acute distress OTHER: lethargic Resp: COMMON NORMALS: clear to auscultation bilaterally AUSCULTATION: clear to auscultation bilaterally Cardio: COMMON NORMALS: regular rate and regular rhythm RATE: regular rate RHYTHM: regular rhythm OTHER: no rub Extremity: GENERAL: Yes edema (2+ bilateral LE) Urinary Catheter Management: Bazzi: Cath Placed During This Visit: yes, but has since been removed by the nurse Reason for Continuing Indwelling Catheter: Accurate Measurement of Urinary Out put in Critically Ill Patients Urinary Catheter Date of Insertion: 04/18/22 Urinary Catheter Time of Insertion: 18:39 Date Urinary Catheter Removed: 04/21/22 Time Urinary Catheter Discontinued: 05:30 Data 04/22/22 04:16 04/22/22 04:16 Other Labs: Ca 9.8, albumin 2.6 vanco and CK pending A&P Assessment and plan (1) ROSALIA (acute kidney injury): seen via telemedicine with assistance of RN at bedside Plan 1. Acute anuric kidney injury, multifactorial: prerenal, contrast, hypotension. Possible renal vein thrombosis. 2. High AG metabolic acidosis, hyperkalemia. 3. Diffusely metastatic cancer 4. Encephalopathy 5. Hypercalcemia improved on calcitonin 6. Extensive LE venous thrombosis on IV heparin Recommend: begin IV fluid with bicarbonate I spoke with daughter Madiha yesterday on telephone. Recommended comfort care. In my opinion she is not a dialysis candidate. Madiha asked me to call back later to speak with ZULLY Morales. My call was not answered. I will speak with daughter, grand-daughter (ZULLY) when they are available. Attestations Medical Necessity Statement*: see above Time Spent in Patient Care: 16 - 35 minutes Coding Level of Care Code Acute Supervisor Furnace Process for Chg Fwd Diagnoses ROSALIA (acute kidney injury) N17.9
[2022-04-22] MEDS: dextrose 50% syringe 50 mL IVP (07:23)
[2022-04-22] MEDS: insulin regular-human 5 UNIT in SYRINGE 1 EACH 1 UNIT IVP (07:23)
[2022-04-22 08:27] LABS: Partial Thromboplastin Time 24.3 SECONDS (23.9-36.7)
[2022-04-22] MEDS: sodium bicarbonate 50 MEQ in sodium chloride 0.45% 1,000 ML 100 MEQ IV ×2 (08:59→19:23)
[2022-04-22 09:20] LABS: Creatine Phosphokinase 41 U/L (26-192)
[2022-04-22 09:38] LABS: Vancomycin Random 27.3 ug/mL (20.0-40.0)
[2022-04-22] MEDS: heparin 5,000 unit/mL INJ 1 mL IV (12:06)
[2022-04-22] MEDS: morphine 10 mg/0.5 mL oral liq UD 5 MG PO ×3 (15:38→20:41)
--- NOTE | 2022-04-22 17:15 | PC.NURSE ---
Dr. Arteaga notified of urine leakage around lovell catheter. Verbal orders to irrigate lovell catheter, if this is not successful replace lovell catheter to a smaller catheter size to prevent occlusion of the catheter.
--- NOTE | 2022-04-22 17:43 | P.PN_ITS ---
Subjective Subjective: Minimally conscious. Occasionally tries to respond. Very weak. Incomprehensible. Unable to tolerate any oral intake. Occasionally appears to be in pain. So far without improvement in renal function, oxygenation, not more awake. Discussed with her family at bedside and discussed with her POA also over the phone. Discussed also regarding coffee-ground emesis yesterday with suspected possible component of upper GI bleed. Steroid discontinued. Calcitonin discontinued. Discussed switching medications secondary to morbilliform rash, suspected drug reaction, with meropenem, Protonix changed. As she has not made improvement, with mildly metastatic cancer, worsening renal function, lack of urine output, persistent hypoxia, generalized weakness, unable to tolerate anything by mouth, unable to communicate, we discussed overall poor prognosis. Family stated they would like to make sure she is comfortable, adding comfort care, avoiding further escalation of care, as well in case of ca rdiopulmonary arrest keeping her comfortable without CPR or intubation. We discussed addition of oral morphine, Ativan, discussed consideration of trial of pleasure feeds if she may tolerate with understanding that she is at extremely high risk of aspiration for purposes of comfort. Medications: Reviewed: Yes Vitals/I&O/Wt Last Vital Signs Temp 98.2 F 04/22/22 16:00 Pulse 111 H 04/22/22 16:00 Resp 16 04/22/22 08:00 BP 98/75 04/22/22 16:00 Pulse Ox 97 04/22/22 16:00 O2 Del Method 04/22/22 04:00 O2 Flow Rate 3 04/22/22 04:00 FiO2 45 04/21/22 00:00 04/22/22 04/22/22 04/22/22 06:59 14:59 22:59 Intake Total 245.767 / 1354.500 151.25 / 151.25 Output Total 0 / 0 Balance 245.767 / 1354.500 151.25 / 151.25 Weight last 48 hrs Weight 83.9 kg Weight 84 kg Physical Exam Const: GENERAL APPEARANCE: cooperative and lethargic ORIENTATION/CONSCIOUSN ESS: Yes confused and Yes lethargic HENMT: COMMON NORMALS: oropharynx normal Neck/C-Spine: COMMON NORMALS: no JVD Resp: COMMON NORMALS: normal respiratory effort and clear to auscultation bilaterally AUSCULTATION: clear to auscultation bilaterally Cardio: COMMON NORMALS: no JVD, regular rhythm, S1 normal heart sound present, S2 normal heart sound present and No murmurs present (Cardio) RHYTHM: regular rhythm HEART SOUNDS: S1 normal heart sound present and S2 normal heart sound present GI: COMMON NORMALS: Normal to inspection, nondistended, normoactive bowel sounds present, Soft to palpation and non-tender PALPATION: Yes Soft to palpation Extremity: COMMON NORMALS: no joint enlargement GENERAL: Yes edema (2+) Neuro: COMMON NORMALS: moves all extremities SENSORIUM/ORIENTATION: Yes lethargic Skin: COMMON NORMALS: no rashes or lesions noted GENERAL SKIN EXAM: no rashes or lesions noted Urinary Catheter Management: Bazzi: Cath Placed During This Visit: yes, but has since been removed by the nurse Reason for Continuing Indwelling Catheter: Accurate Measurement of Urinary Out put in Critically Ill Patients Urinary Catheter Date of Insertion: 04/18/22 Urinary Catheter Time of Insertion: 18:39 Date Urinary Catheter Removed: 04/21/22 Time Urinary Catheter Discontinued: 05:30 Data 04/22/22 04:16 04/22/22 04:16 Micro: Microbiology 04/21/22 15:35 MRSA Culture - Final Nose A&P Assessment and plan (1) ROSALIA (acute kidney injury): Worsening renal failure. Oliguria. Hypercalcemia on presentation. Renal function continually worsening. Creatinine up to 2.2 No hydronephrosis on ultrasound kidneys and bladder. Moderate ascites. No compartment syndrome. Hypokalemia received additional dose of Kayexalate this morning. (2) Acute encephalopathy: Without improvement. Persistently lethargic. Unable to communicate, confused, unable to tolerate any oral intake. Secondary to pneumonia, hypoxia. No hypercapnia.Acute metabolic encephalopathy secondary to hypercalcemia. Normal ammonia. Calcium improving. (3) Goals of care, counseling/discussion: As she has not made improvement, with mildly metastatic cancer, worsening renal function, lack of urine output, persistent hypoxia, generalized weakness, unable to tolerate anything by mouth, unable to communicate, we discussed overall poor prognosis. Family stated they would like to make sure she is comfortable, adding comfort care, avoiding further escalation of care, as well in case of cardiopulmonary arrest keeping her comfortable without CPR or intubation. We discussed addition of oral morphine, Ativan, discussed consideration of trial of pleasure feeds if she may tolerate with understanding that she is at extremely high risk of aspiration for purposes of comfort. Family asked to continue anticoagulation. (4) Acute respiratory failure with hypoxia: Without improvement in hypoxia. Check MRSA PCR. CTA demonstrated PE Currently on 3 L of oxygen Due to worsening rash, discontinue heparin. Switch to argatroban. Significant risk of bleeding with widespread metastatic disease, family has been informed Echocardiogram demonstrated preserved ejection fraction Continue empiric vancomycin and meropenem. (5) Pneumonia: Negative MRSA PCR. Vancomycin stopped. Right basilar opacity. Suspected possible pneumonia. COVID PCR negative Levaquin (6) Hypercalcemia: Improved. Stop steroids due to hematemesis. Stop calcitonin due to rash. (7) Morbilliform rash: Stop procalcitonin, meropenem, Protonix, vancomycin. Rash persists and is worse today. Stop heparin drip, switch to argatroban. (8) Hematemesis: Protonix discontinued due to suspected drug rash. Continue famotidine twice daily. Plan Hyponatremia: Resolved Metastatic adenocarcinoma, unknown primary. May be candidate to see palliative medicine Ascites Metastatic cancer to bone Metastatic cancer to liver Generalized weakness Recent UTI Attestations Medical Necessity Statement*: Continue admission for assessment and management of encephalopathy, hypoxemia. Pneumonia, PE, DVT, morbilliform rash suspected drug reaction, additional comfort measures. 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
[2022-04-22 17:55] LABS: Partial Thromboplastin Time 143.2 SECONDS (23.9-36.7)
--- NOTE | 2022-04-22 18:31 | PC.NURSE ---
Lovell catheter irrigated with 60ml of sterile water per Dr. Arteaga's verbal order, this was unsucessful as there was no urine return or irrigate return of the 60ml sterile water. This nurse with the assistance of HELDER Edmond replaced lovell catheter with a 16fr lovell catheter, patient tolerated well.
[2022-04-22] MEDS: argatroban 250 MG in sodium chloride 0.9% 250 ML 10.17 MG IV (19:13)
[2022-04-22] MEDS: ondansetron 2 mg/ML SDV 2 mL 4 MG IVP (20:40)
[2022-04-22] MEDS: LORazepam 2 mg/mL oral liquid (mL) 0.5 MG PO (20:40)
[2022-04-22 22:04] LABS: Partial Thromboplastin Time 78.5 SECONDS (23.9-36.7)
[2022-04-23] VITALS (25 sets, daily range): BP systolic 74–101; BP diastolic 45–71; PULSE 93–108; RESP 8–21; TEMP 36.1–37.1; O2SAT 90–95
[2022-04-23] MEDS: famotidine 20 mg/2 mL INJ IVP ×2 (04:27→16:46)
[2022-04-23 04:42] LABS: Basophils % 0.2 %; Eosinophils % 0.1 %; Hematocrit 37.3 % (37.0-47.0); Hemoglobin 11.2 g/dL (11.5-15.3); Lymphocytes # 0.3 10^3/uL (0.8-4.8); Lymphocytes % 1.3 %; Mean Corpuscular Hemoglobin 30.4 pg (28.0-34.0); Mean Corpuscular Volume 101.4 fl (81-99); Mean Platelet Volume 10.3 fL (7.4-10.4); Monocytes # 0.3 10^3/uL (0.2-0.9); Monocytes % 1.6 %; Neutrophils # 20.28 10^3/uL (1.8-7.7); Neutrophils % 93.4 %; Nucleated Red Blood Cells % 0.2 %; Platelet Count 115 10^3/cmm (130-400); Red Blood Count 3.68 10^6/uL (4.1-5.3); Red Cell Distribution Width 17.5 % (12.1-15.1); White Blood Count 21.7 10^3/uL (4.0-10.0)
[2022-04-23 05:01] LABS: Partial Thromboplastin Time 73.1 SECONDS (23.9-36.7)
[2022-04-23 05:03] LABS: Alanine Aminotransferase 13 U/L (0-33); Albumin Level 2.5 g/dL (3.5-5.2); Alkaline Phosphatase 130 U/L (35-105); Calcium 9.1 mg/dL (8.5-10.5); Carbon Dioxide 18 mmol/L (22-29); Chloride 100 mmol/L (98-107); Globulin 2.7 g/dL (1.3-4.6); Glucose 80 mg/dL (65-115); Osmolality Calculated 299 mOsm/kg (285-295); Sodium 131 mmol/L (136-145); Total Bilirubin 0.4 mg/dL (0.15-1.2); Total Protein 5.2 g/dL (6.6-8.7)
[2022-04-23 05:14] LABS: Anion Gap 17.9 (5-19); Aspartate Amino Transferase 38 U/L (0-32); Potassium 4.9 mmol/L (3.5-5.1)
[2022-04-23 05:15] LABS: Blood Urea Nitrogen 91 mg/dL (8-23)
[2022-04-23] MEDS: sodium bicarbonate 50 MEQ in sodium chloride 0.45% 1,000 ML 100 MEQ IV (05:56)
[2022-04-23] MEDS: LORazepam 2 mg/mL oral liquid (mL) 0.5 MG PO (08:17)
[2022-04-23] MEDS: morphine 10 mg/0.5 mL oral liq UD 5 MG PO ×2 (08:17→23:27)
--- NOTE | 2022-04-23 16:29 | P.PN_ITS ---
Subjective Subjective: Without improvement today. Very weak. Not waking up. Sometimes a short incomprehensible normal. Otherwise not communicative. Not following directions. Unable to tolerate any oral intake. Medications: Reviewed: Yes Vitals/I&O/Wt Last Vital Signs Temp 97.9 F 04/23/22 07:00 Pulse 100 04/23/22 14:00 Resp 10 L 04/23/22 12:00 BP 91/62 04/23/22 12:00 Pulse Ox 92 04/23/22 10:00 O2 Del Method 04/23/22 07:37 O2 Flow Rate 3 04/23/22 07:37 FiO2 45 04/21/22 00:00 04/23/22 04/23/22 04/23/22 06:59 14:59 22:59 Intake Total 1050 / 2394.304 606.667 / 606.667 Output Total 40 / 40 Balance 1010 / 2354.304 606.667 / 606.667 Weight last 48 hrs Weight 85.6 kg Weight 83.9 kg Physical Exam Const: GENERAL APPEARANCE: cooperative and lethargic ORIENTATION /CONSCIOUSNESS: Yes confused and Yes lethargic HENMT: COMMON NORMALS: oropharynx normal Neck/C-Spine: COMMON NORMALS: no JVD Resp: COMMON NORMALS: normal respiratory effort and clear to auscultation bilaterally AUSCULTATION: clear to auscultation bilaterally Cardio: COMMON NORMALS: no JVD, regular rhythm, S1 normal heart sound present, S2 normal heart sound present and No murmurs present (Cardio) RHYTHM: regular rhythm HEART SOUNDS: S1 normal heart sound present and S2 normal heart sound present GI: COMMON NORMALS: Normal to inspection, nondistended, normoactive bowel sounds present, Soft to palpation and non-tender PALPATION: Yes Soft to palpation Extremity: COMMON NORMALS: no joint enlargement GENERAL: Yes edema (2+) Neuro: COMMON NORMALS: moves all extremities SENSORIUM/ORIENTATION: Yes lethargic Skin: OTHER: Persistent morbilliform rash across the back, today also flanks, fainter on chest, neck, no blisters or bullae, no ulceration. Urinary Catheter Management: Bazzi: Cath Placed During This Visit: yes, but has since been removed by the nurse Reason for Continuing Indwelling Catheter: Accurate Measurement of Urinary Output in Critically Ill Patients Urinary Catheter Date of Insertion: 04/22/22 Urinary Catheter Time of Insertion: 18:40 Date Urinary Catheter Removed: 04/22/22 Time Urinary Catheter Discontinued: 18:39 Data 04/23/22 04:20 04/23/22 04:20 Micro: Microbiology 04/18/22 15:37 Blood Culture - Final Blood NO GROWTH AFTER 5 DAYS 04/18/22 15:49 Blood Culture - Final Blood NO GROWTH AFTER 5 DAYS A&P Assessment and plan (1) Goals of care, counseling/discussion: Made no further improvement so far. Continues on combination of comfort care, continued anticoagulation, antibiotic, gentle IV hydration, antacid, supportive measures. His family preferred to continue anticoagulant, with concern for drug reaction to heparin continues and agreed to plan which could not be administered on medical floor or CSU. Family were here to spend time with her today. As she has not made improvement, with mildly metastatic cancer, worsening renal function, lack of urine output, persistent hypoxia, generalized weakness, unable to tolerate anything by mouth, unable to communicate, we discussed overall poor prognosis. Family stated they would like to make sure she is comfortable, adding comfort care, avoiding further escalation of care, as well in case of cardiopulmonary arrest keeping her comfortable without CPR or intubation. We discussed addition of oral morphine, Ativan, discussed consideration of trial of pleasure feeds if she may tolerate with understanding that she is at extremely high risk of aspiration for purposes of comfort. Family asked to continue anticoagulation. (2) Acute encephalopathy: Without improvement. Persistently lethargic. Unable to communicate, confused, unable to tolerate any oral intake. Secondary to pneumonia, hypoxia. No hypercapnia.Acute metabolic encephalopathy secondary to hypercalcemia. Normal ammonia. Calcium improving. (3) ROSALIA (acute kidney injury): Progressively worsening renal failure. Oliguria. Decreased bicarb infusion rate. Hypercalcemia on presentation. Renal function continually worsening. No hydronephrosis on ultrasound kidneys and bladder. Moderate ascites. No compartment syndrome. Hypokalemia received additional dose of Kayexalate this morning. (4) Acute respiratory failure with hypoxia: Without improvement in hypoxia. Check MRSA PCR. CTA demonstrated PE Currently on 3 L of oxygen Due to worsening rash, discontinue heparin. Switch to argatroban. Significant risk of bleeding with widespread metastatic disease, family has been informed Echocardiogram demonstrated preserved ejection fraction Continue empiric vancomycin and meropenem. (5) Pneumonia: Negative MRSA PCR. Vancomycin stopped. Right basilar opacity. Suspected possible pneumonia. COVID PCR negative Levaquin (6) Hypercalcemia: Improved. Stop steroids due to hematemesis. Stop calcitonin due to rash. (7) Morbilliform rash: Switched from heparin to argatroban. Rash appears to persist, somewhat worse today. She has been of steroid due to GI bleeding. So far pretty much all her medications have been changed. Hold Zofran. Otherwise this may be vasculitis, possibly related to her malignancy. Stopped calcitonin, meropenem, Protonix, vancomycin. Rash persists and is worse today. Stop heparin drip, switch to argatroban. (8) Hematemesis: Protonix discontinued due to suspected drug rash. Continue famotidine twice daily. Plan Hyponatremia: Resolved Metastatic adenocarcinoma, unknown primary. 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
--- NOTE | 2022-04-23 16:54 | PC.NURSE ---
Granddaughter and daughter notified of patient's decline in condition. Daughter said she did not wish to be here and would call other family members and notify them and daughter said she would try to be here later tonight.
[2022-04-23] MEDS: levofloxacin-dextrose 5 % 750 MG/150 ML PREMIX 100 MG IV (20:25)
[2022-04-24] VITALS (19 sets, daily range): BP systolic 0–75; BP diastolic 0–50; PULSE 0–100; RESP 0–20; TEMP 35.9–36.7; O2SAT 0–96
[2022-04-24] MEDS: LORazepam 2 mg/mL oral liquid (mL) 0.5 MG PO ×2 (02:04→12:53)
[2022-04-24] MEDS: morphine 10 mg/0.5 mL oral liq UD 5 MG PO ×2 (02:04→12:53)
[2022-04-24] MEDS: argatroban 250 MG in sodium chloride 0.9% 250 ML 7.63 MG IV (02:40)
[2022-04-24] MEDS: sodium bicarbonate 50 MEQ in sodium chloride 0.45% 1,000 ML 30 MEQ IV (02:40)
[2022-04-24] MEDS: famotidine 20 mg/2 mL INJ IVP (03:25)
[2022-04-24 04:29] LABS: Basophils % 0.2 %; Eosinophils % 0.2 %; Hematocrit 35.6 % (37.0-47.0); Hemoglobin 10.7 g/dL (11.5-15.3); Lymphocytes # 0.2 10^3/uL (0.8-4.8); Lymphocytes % 0.6 %; Mean Corpuscular HGB Conc 30.1 g/dL (30.0-36.0); Mean Corpuscular Hemoglobin 30.2 pg (28.0-34.0); Mean Corpuscular Volume 100.6 fl (81-99); Mean Platelet Volume 10.2 fL (7.4-10.4); Monocytes # 0.3 10^3/uL (0.2-0.9); Monocytes % 1.1 %; Neutrophils # 24.66 10^3/uL (1.8-7.7); Neutrophils % 94.9 %; Nucleated Red Blood Cells # 0.1 /100WBC; Nucleated Red Blood Cells % 0.2 %; Platelet Count 104 10^3/cmm (130-400); Red Blood Count 3.54 10^6/uL (4.1-5.3); Red Cell Distribution Width 17.3 % (12.1-15.1)
[2022-04-24 04:52] LABS: Partial Thromboplastin Time 102.2 SECONDS (23.9-36.7)
[2022-04-24 04:59] LABS: Alanine Aminotransferase 10 U/L (0-33); Albumin Level 2.4 g/dL (3.5-5.2); Alkaline Phosphatase 193 U/L (35-105); Anion Gap 17.2 (5-19); Aspartate Amino Transferase 41 U/L (0-32); Calcium 8.7 mg/dL (8.5-10.5); Carbon Dioxide 20 mmol/L (22-29); Chloride 102 mmol/L (98-107); Globulin 2.4 g/dL (1.3-4.6); Glucose 79 mg/dL (65-115); Osmolality Calculated 306 mOsm/kg (285-295); Potassium 6.2 mmol/L (3.5-5.1); Sodium 133 mmol/L (136-145); Total Bilirubin 0.4 mg/dL (0.15-1.2); Total Protein 4.8 g/dL (6.6-8.7)
[2022-04-24 05:03] LABS: Blood Urea Nitrogen 99 mg/dL (8-23)
[2022-04-24 08:25] LABS: Partial Thromboplastin Time 98.6 SECONDS (23.9-36.7)
--- NOTE | 2022-04-24 10:17 | PC.CHAP ---
Pastoral Care Encounter/Spiritual Assessment Type of Contact [] Declined distribution center assistant visit [] Patient/Family/Request visit [] Outpatient visit [] Follow-up visit [] Physician referral [] Code/Alert [x] Routine visit [] Staff referral [] Actively dying [] Patient sleeping [x] Family support [] [] Out of room [] Palliative care [] [] Receiving care in room [] Pre-surgical visit [] Trauma [] Long length of stay [x] ICU visit [] Other: Relational/Emotional Strength [] Patient feels connected with others/family/visitors/staff [] Distress [] Loneliness/isolation [] Abandonment Spirituality of Patient [x] Person of Ratna [] Attends Mandaen of their Ratna [] Believes in Prayer [] Reads Bible or Confucianist materials [] There are Spiritual issues to be addressed Independent Driver Interventions [x] Prayer [] Active listening [] Non-anxious presence [] Spiritual/emotional support [] Crisis/trauma care [] Spiritual counseling [] Bereavement support [] Provided bereavement packet [] Provided Bible/devotional materials [] Provided toy/stuffed animal, coloring book to patient or family member [] Provided Communion [] Anointing/[place] [] Salvation [x] Completed spiritual assessment [] Other: Impact on Illness or Injury [] Angry [] Fearful [] Anxious [] Often cries [] Exhaustion [] Unable to work [] Unable to attend holiness [] Unable to walk/stand [] Unable to read [] Unable to drive [] Unable to eat/drink [] Unable to sleep [] Unable to be with family [] Patient intubated [] Other: Summary Time spent with patient
[2022-04-24] MEDS: pantoprazole 40 mg SDV IVP (12:53)
--- NOTE | 2022-04-24 14:43 | PM.PN ---
Subjective Subjective: Hospital course, labs appreciated. Today morning seen with family at bedside. Patient is currently on argatroban infusion along with fluid running at 75 cc/h. Systolic blood pressure running at around 70s. No urine output charted for last 2 days. Blood work and vitals appreciated. Medications: Reviewed: Yes Vitals/I&O/Wt Last Vital Signs Temp 98.1 F 04/24/22 12:00 Pulse 96 04/24/22 14:00 Resp 13 04/24/22 12:00 BP 62/47 04/24/22 12:00 Pulse Ox 91 04/24/22 12:00 O2 Del Method 04/24/22 08:41 O2 Flow Rate 3 04/24/22 08:41 FiO2 45 04/21/22 00:00 04/23/22 04/24/22 04/24/22 22:59 06:59 14:59 Intake Total 150 / 756.667 676.530 / 1433.197 236.285 / 236.285 Output Total 0 / 0 0 / 0 Balance 150 / 756.667 676.530 / 1433.197 236.285 / 236.285 Weight last 48 hrs Weight 87.1 kg Weight 85.6 kg Physical Exam Const: GENERAL APPEARANCE: cooperative and lethargic ORIENTATION/CONSCIOUSNESS: Yes confused and Yes lethargic HENMT: COMMON NORMALS: oropharynx normal Neck/C-Spine: COMMON NORMALS: no JVD Resp: COMMON NORMALS: normal respiratory effort and clear to auscultation bilaterally AUSCULTATION: clear to auscultation bilaterally Cardio: COMMON NORMALS: no JVD, regular rhythm, S1 normal heart sound present, S2 normal heart sound present and No murmurs present (Cardio) RHYTHM: regular rhythm HEART SOUNDS: S1 normal heart sound present and S2 normal heart sound present GI: COMMON NORMALS: Normal to inspection, nondistended, normoactive bowel sounds present, Soft to palpation and non-tender PALPATION: Yes Soft to palpation Extremity: COMMON NORMALS: no joint enlargement GENERAL: Yes edema (2+) Neuro: COMMON NORMALS: moves all extremities SENSORIUM/ORIENTATION: Yes lethargic Skin: COMMON NORMALS: no rashes or lesions noted GENERAL SKIN EXAM: no rashes or lesions noted OTHER: Persistent morbilliform rash across the back, today also flanks, fainter on chest, neck, no blisters or bullae, no ulceration. Urinary Catheter Management: Bazzi: Cath Placed During This Visit: yes, but has since been removed by the nurse Reason for Continuing Indwelling Catheter: Accurate Measurement of Urinary Output in Critically Ill Patients Urinary Catheter Date of Insertion: 04/22/22 Urinary Catheter Time of Insertion: 18:40 Date Urinary Catheter Removed: 04/22/22 Time Urinary Catheter Discontinued: 18:39 Data 04/24/22 04:10 04/24/22 04:10 Micro: Microbiology 04/18/22 15:37 Blood Culture - Final Blood NO GROWTH AFTER 5 DAYS 04/18/22 15:49 Blood Culture - Final Blood NO GROWTH AFTER 5 DAYS A&P Assessment and plan (1) Goals of care, counseling/discussion: (2) Acute encephalopathy: Without improvement. Persistently lethargic. Unable to communicate, confused, unable to tolerate any oral intake. Secondary to pneumonia, hypoxia. No hypercapnia.Acute metabolic encephalopathy secondary to hypercalcemia. Normal ammonia. Calcium improving. (3) ROSALIA (acute kidney injury): Progressively worsening renal failure. Oliguria. Decreased bicarb infusion rate. Hypercalcemia on presentation. Renal function continually worsening. No hydronephrosis on ultrasound kidneys and bladder. Moderate ascites. No compartment syndrome. Hypokalemia received additional dose of Kayexalate this morning. (4) Acute respiratory failure with hypoxia: Without improvement in hypoxia. Check MRSA PCR. CTA demonstrated PE Currently on 3 L of oxygen Due to worsening rash, discontinue heparin. Switch to argatroban. Significant risk of bleeding with widespread metastatic disease, family has been informed Echocardiogram demonstrated preserved ejection fraction Continue empiric vancomycin and meropenem. (5) Pneumonia: Negative MRSA PCR. Vancomycin stopped. Right basilar opacity. Suspected possible pneumonia. COVID PCR negative Levaquin (6) Hypercalcemia: Improved. Stop steroids due to hematemesis. Stop calcitonin due to rash. (7) Morbilliform rash: Switched from heparin to argatroban. Rash appears to persist, somewhat worse today. She has been of steroid due to GI bleeding. So far pretty much all her medications have been changed. Hold Zofran. Otherwise this may be vasculitis, possibly related to her malignancy. Stopped calcitonin, meropenem, Protonix, vancomycin. Rash persists and is worse today. Stop heparin drip, switch to argatroban. (8) Hematemesis: Protonix discontinued due to suspected drug rash. Continue famotidine twice daily. (9) DVT (deep venous thrombosis): (10) PE (pulmonary thromboembolism): (11) Metastatic cancer to bone: (12) Metastatic cancer to liver: (13) Protein calorie malnutrition: (14) Muscular deconditioning: Plan Hyponatremia: Resolved Metastatic adenocarcinoma, unknown primary. 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 Morales over the phone who is patient's DPOA/granddaughter regarding critical illness. We discussed that unfortunately patient seems to have metastatic cancer which is metastatic to bones along with multiorgan failure with renal failure along with oliguria for which patient is not a good candidate for dialysis as per nephrology, septic shock, encephalopathy, not a good candidate for chemo/radiation therapy as per oncology. We discussed at this point unfortunately patient cannot be cured medically and her mentation is and vitals will continue to worsen without any definitive treatment which unfortunately is not amenable to her because of her current medical condition. 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 Patient's daughter/family along with DPOA/granddaughter verbalized understanding and after discussing amongst themselves they wanted to go ahead with comfort measures status. We discussed that comfort may status would mean to stop active treatment along with following up of labs and to concentrate goals of care on patient being comfort with morphine and Ativan as needed for pain and air hunger while nature takes its course which would eventually mean patient would . CODE STATUS changed to comfort measures status only. Morphine and Ativan as needed. Stop IV antibiotics. Stop anticoagulation. Vitals as per protocol. No further lab work. Pleasure feeds. Continue with Zofran as needed, IV Protonix. Attestations Medical Necessity Statement*: Requires further hospitalization as comfort measures are initiated Critical Care Time: The high probability of a clinically significant, sudden or life threatening deterioration of the patient's [cardiac, renal, ID, goals of care] system(s) required my full and direct attention, intervention and personal management. The critical care time is as shown. 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
--- NOTE | 2022-04-24 15:21 | PC.NURSE ---
Patient TOD 1515, this nurse verified by auscultating the apical pulse for 60 seconds, a second nurse verified- HELDER Stevenson. POA called notified of TOD. Son noted to be at bedside at TOD. MTS notified by HELDER Farley.
--- NOTE | 2022-04-24 15:28 | PM.DDS ---
Discharge Providers DDS Date of Admission: 04/18/22 19:05 Date Summary Completed: 04/24/22 Attending Provider at Admission: Mina Friedman Attending Provider at Discharge: Jose Bennett MD Consults: Renal: Telemetry nephrology Urology: Dr. Marcum Primary Care Provider: Fco Meyer MD DS Diagnoses Hospital Diagnoses (1) Goals of care, counseling/discussion: (2) Acute encephalopathy: (3) ROSALIA (acute kidney injury): (4) Acute respiratory failure with hypoxia: (5) Pneumonia: (6) Hypercalcemia: (7) Morbilliform rash: (8) Hematemesis: (9) DVT (deep venous thrombosis): (10) PE (pulmonary thromboembolism): (11) Metastatic cancer to bone: (12) Metastatic cancer to liver: (13) Protein calorie malnutrition: (14) Muscular deconditioning: Reason for Visit Reason for Visit SOB/Hypoxia Summary Summary Summary: Patient was initially admitted on 04/18. 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 Involvement at T5 and T9 encroaches into the thoracic cord and foramina, however no obvious signs of cord compression were noted.? There was also metastatic disease throughout the sternum. During hospitalization he was also treated for hyponatremia, started on sodium and chloride tablets.? 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 And also underwent paracentesis with 800 cc fluid removed.? Started on Lasix.? Also found to to have hypothyroidism for which was started on levothyroxine.? Due to deconditioning discharged to snf facility for rehabilitation with follow-up with heme-onc. She is brought in from assisted for evaluation due to increased shortness of breath and tachycardia, on presentation with hypoxia on 5 L saturating 87-88%.? Initially tachycardic 103-107.? He seven-point 4/33/50 5.4/20.6 on 100% nonrebreather.? Leukocytosis 15,000.? Chest x-ray showing atherosclerosis otherwise no acute abnormality. Patient was eventually admitted to the hospital for further evaluation and management for acute hypoxic respiratory failure along with encephalopathy and was found to be in acute kidney injury with a suspicion of right lower lobe pneumonia. On admission she was also found to be hypercalcemic for which she required IV fluids and calcitonin. Patient's oxygenation remained stable and her calcium levels improved though she was found to have bilateral lower limb DVT along with pulmonary emboli. She developed diffuse generalized rash which was initially thought to be secondary to allergic reaction from medication. But as it did not improve in stopping of medications in with setting with DVT there is a concern for vasculitis. Patient continues to remain oliguric over the last 48 hours. Nephrology was consulted who stated patient is a poor candidate for dialysis given hemodynamics. Patient's care was discussed with outpatient oncology who stated unfortunately patient is not a good candidate for treatment given extent of the disease and baseline physical deconditioning and severe protein energy malnutrition. Goals of care discussions were done in detail given multiorgan failure in setting of extensive malignancy along with new diagnosis of DVT and pulmonary embolism in setting of baseline poor physical conditioning. Family decided for comfort measures status on 04/24. Patient eventually in comfortable state with family at bedside on 04/24 at 1515. Additional Data Confirmation of as documented by pronouncing clinician: no pulse and no respirations Family: at bedside Additional persons at bedside: nursing staff Attending/PCP notified?: I am attending Was code activated?: No Autopsy requested?: No Advance directives?: No Hospice patient?: No Discharge Plan Discharge Patient Disposition: At Medical Facility Condition: Stable Prescriptions: No Action glucosamine-chondroitin [Osteo Bi-Flex] 250-200 mg Tablet 1 tab PO DAILY Rx Instructions: give after food/meal sodium chloride 1 gram Tablet 1 g PO BID 30 Days Qty: 60 0RF levothyroxine 25 mcg Tablet 25 mcg PO QAM 30 Days Qty: 30 0RF pantoprazole 40 mg Tablet,Delayed Release (Dr/Ec) 40 mg PO DAILY 30 Days Qty: 30 0RF sennosides 8.6 mg Tablet 8.6 mg PO DAILY PRN (Reason: Constipation) acetaminophen 325 mg Tablet 650 mg PO QID PRN (Reason: Pain) Milk of Magnesia 400 mg/5 mL Suspension 30 ml PO Q30H PRN (Reason: Constipation) bisacodyl 10 mg Suppository 10 mg MA DAILY PRN (Reason: Constipation) Enema 19-7 gram/118 mL Enema 118 ml MA DAILY PRN (Reason: Constipation) Miralax 17 gram/dose Powder 4 g PO DAILY PRN (Reason: Constipation) Discharge Orders: Discharge Order (Routine); Ordered 04/24/22 Ordered By: Jose Bennett Referrals: Fco Meyer MD [Primary Care Provider] - Patient Instructions: Opioid Safety Probable Cause of Probable cause of : Renal failure DS Attestations Time Spent in /Discharge Care*: critical care time (Multiple goals of care discussion) Critical Care Time (min): 60 Quality - AMI: AMI present?: No Quality - Stroke: CVA present?: No Quality - VTE: VTE present?: Yes Deep Vein Thrombosis/Pulmonary Embolism Present on Admission: Yes Coding Level of Care Code Acute [employer] for [employer]g Fwd Diagnoses Goals of care, counseling/discussion Z71.89 Acute encephalopathy G93.40 ROSALIA (acute kidney injury) N17.9 Acute respiratory failure with hypoxia J96.01 Pneumonia J18.9 Hypercalcemia E83.52 Morbilliform rash R21 Hematemesis K92.0 DVT (deep venous thrombosis) I82.409 PE (pulmonary thromboembolism) I26.99 Metastatic cancer to bone C79.51 Metastatic cancer to liver C78.7 Protein calorie malnutrition E46 Muscular deconditioning R29.898
== END 2022-04-24 15:15 | disposition expired | DRG 193 ==
LOC: ER 17:00 → ICU 19:58
PROVIDERS: Internal Medicine; Admitting Provider Internal Medicine; Emergency Provider Family Medicine; PCP Family Medicine; Visit Provider Student in an Organized Health Care Education/Training Program
DX: J18.9 Pneumonia, unspecified organism (principal); G93.41 Metabolic encephalopathy; J96.01 Acute respiratory failure with hypoxia; I26.99 Other pulmonary embolism without acute cor pulmonale; N17.9 Acute kidney failure, unspecified; K92.0 Hematemesis; I82.433 Acute embolism and thrombosis of popliteal vein, bilateral; C79.51 Secondary malignant neoplasm of bone; C78.7 Secondary malignant neoplasm of liver and intrahepatic bile duct; C78.01 Secondary malignant neoplasm of right lung; C78.02 Secondary malignant neoplasm of left lung; E46 Unspecified protein-calorie malnutrition; E87.1 Hypo-osmolality and hyponatremia; R18.8 Other ascites; E83.52 Hypercalcemia; L27.0 Generalized skin eruption due to drugs and medicaments taken internally; T50.915A Adverse effect of multiple unspecified drugs, medicaments and biological substances, initial encounter; C80.1 Malignant (primary) neoplasm, unspecified; Z68.31 Body mass index [BMI] 31.0-31.9, adult; E03.9 Hypothyroidism, unspecified; I77.6 Arteritis, unspecified; Z51.5 Encounter for palliative care; Z87.440 Personal history of urinary (tract) infections; Z85.3 Personal history of malignant neoplasm of breast
CPT/HCPCS: 36415; 36600; 51702; 70470; 71045; 71275; 76705; 76770; 76857; 80051; 80053; 80202; 81001; 82140; 82330; 82550; 82805; 83605; 83735; 83880; 84132; 84484; 85025; 85730; 87040; 87635; 87641; 93005; 93306; 93970; 94660; 94664; 96365; 96372; 99285; C9113; J0630; J0883; J1644; J1650; J1815; J1940; J1956; J2185; J2270; J2405; J2430; J2920; J3370; J3490; J7030; J7040; J7050; J7060; J9352; Q3014; Q9967